=== PATIENT | female | born 1955 | race African-American/Black ===

== ENCOUNTER → 2023-09-25 | Outpatient (CLI) | payer OTHER ==
[~2023-09-25] VITALS: Ht 152.4 cm; Wt 60.8 kg
[~2023-09-25] MED LIST: ACYC400T16 PO; ADENOSINE 51 MG in GIVE UN-DILUTED 0 ML IV ONE; ADENOSINE 90 MG/30 ML INJ IV ONE; AMIT10TA11; BRIM0.2S17; BUTACAP7; CALCTAB25 PO; CARI350T27; CYPR4TAB50; DICL75TA4; ECON1CRE6; FOLI-119; HYDR-1421; HYDR200T36; LATA0.008; METH-562; METH2.5T; METO-158; OME20GT PO; POTA10CA29; PRED-188; PRED5PAK2; RANI-226; TRAZ-227
== END | disposition home or self-care (01) ==
LOC: Rad HDHVI 09:41
PROVIDERS: ATTEND Internal Medicine Cardiovascular Disease
DX: R07.9 Chest pain, unspecified (principal); I10 Essential (primary) hypertension; E78.00 Pure hypercholesterolemia, unspecified; R42 Dizziness and giddiness; R06.02 Shortness of breath; Z84.0 Family history of diseases of the skin and subcutaneous tissue
CPT/HCPCS: 78452; 93005; 96374; 96375; A9500; J0153

== ENCOUNTER 2024-06-25 10:23 | Inpatient (IN) | payer OTHER, MEDICAID ==
[~2024-06-25] VITALS: Ht 152.4 cm; Wt 58.8 kg
[2024-06-25] VITALS (9 sets, daily range): BP systolic 119; BP diastolic 72; PULSE 76–120; RESP 17–24; TEMP 99.1; O2SAT 97–100
[~2024-06-25 10:23] MED LIST changes: -ADENOSINE 51 MG in GIVE UN-DILUTED 0 ML IV ONE; -ADENOSINE 90 MG/30 ML INJ IV ONE; +BUTA1CAP31; -BUTACAP7; +CARI-578; -CARI350T27
[2024-06-25 10:51] LABS: Basophils # (auto) 0.1 10 ^3/uL (0-0.2); Basophils % (auto) 0.8 % (0.0-2.0); Eosinophils # (auto) 1.5 10 ^3/uL (0-0.8); Eosinophils % (auto) 8.9 % (0.0-7.0); Hematocrit 34.8 % (36.0-46.0); Hemoglobin 11.4 g/dL (12.2-16.2); Lymphocytes # (auto) 1.8 10 ^3/uL (0.4-5.4); Lymphocytes % (auto) 10.7 % (10.0-50.0); Mean Corpuscular Hemoglobin 28.6 pg (28.0-32.0); Mean Corpuscular Hgb Conc. 32.7 g/dL (32.0-36.0); Mean Corpuscular Volume 87.4 fL (80.0-100.0); Monocytes # (auto) 1.5 10 ^3/uL (0-1.3); Monocytes % (auto) 8.8 % (0.0-12.0); Neutrophils # (auto) 11.7 10 ^3/uL (1.6-8.6); Neutrophils % (auto) 70.8 % (37.0-80.0); Platelet Count (auto) 427 10^3/uL (140-450); Red Blood Cells 3.98 10^6/uL (4.0-5.20); Red Cell Distribution Width 16.7 % (11.8-14.3); White Blood Cell 16.5 10^3/uL (4.4-10.8)
--- NOTE | 2024-06-25 10:54 | ED.PDOC ---
SOB-HPI HPI Comments A 68 year old female presents to the ED with a chief complaint of shortness of breath onset 3 days ago. Patient states her SOB began 3 days ago but noticed it worsen today, she is on 2L of O2 at home COPD and has been using 3L for the past 2 days but has not noticed an improvement. She is also experiencing fever, headache, cough, sore throat and sharp chest pain radiating from the right to the left side. Patient also notes she has been hospitalized previously due to respiratory issues. She has a past medical history of Lupus, COPD, HTN, RA, Neuropathy, depression. No other symptoms or modifying factors present at this time. Chief Complaint: Chest Pain Time Seen by MD: 10:41 Primary Care Provider: DOROTHY Neri notes: Medications, Allergies Information Source: Patient Mode of Arrival: Ambulatory Severity: Moderate Timing: Days Duration: Since onset Context: At Rest, With Light Exertion PE Risk Factors: None History of: COPD Prehospital treatment: Oxygen (3L) Modifying Factors: Exertion, Rest Associated Signs and Symptoms: Cough, Sore Throat, Chest Pain Quality: Pressure Radiation: No Radiation If cough with SOB: Non-Productive Past Medical History PAST MEDICAL HISTORY: Anemia, Arthritis, Cancer, COPD, Depression, HTN Past Medical History (Other): RA, SLE, Neuropathy Surgical History (Other): gastric lymphadenectomy 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 History: No Pertinent BROWNELL OPERATOR History Family History Family History: No family hx of Cancer, No family hx of DM, No family hx of Heart mc, No family hx of HTN Social History Smoker: Less Than 1 Pack/Day Alcohol: Rarely Drugs: Denies Drug Use Lives In: Home Constitutional: reports: fatigue, fever; denies: chills, diaphoresis, malaise, sweats, weakness, others EENTM: reports: throat pain; denies: blurred vision, double vision, ear bleeding, ear discharge, ear drainage, ear pain, ear ringing, eye pain, eye redness, hearing loss, mouth pain, mouth swelling, nasal discharge, nose bleeding, nose congestion, nose pain, photophobia, tearing, throat swelling, voice changes, others Respiratory: reports: cough, shortness of breath; denies: hemoptysis, orthopnea, SOB at rest, SOB with excertion, stridor, wheezing, others Cardiovascular: reports: chest pain; denies: dizzy spells, diaphoresis, Dyspnea on exertion, edema, irregular heart beat, left arm pain, lightheadedness, palpitations, PND, syncope, others Gastrointestinal: denies: abdomen distended, abdominal pain, blood streaked bowels, constipated, diarrhea, dysphagia, difficulty swallowing, hematemesis, melena, nausea, poor appetite, poor fluid intake, rectal bleeding, rectal pain, vomiting, others Genitourinary: denies: abnormal vagina bleeding, burning, dyspareunia, dysuria, flank pain, frequency, hematuria, incontinence, pain, , vagina discharge, urgency, others Neurological: reports: headache; denies: dizziness, fainting, left sided numbness, left sided weakness, numbness, paresthesia, pre-existing deficit, right sided numbness, right sided weakness, seizure, speech problems, tingling, tremors, weakness, others Musculoskeletal: denies: back pain, gout, joint pain, joint swelling, muscle pain, muscle stiffness, neck pain, others Integumetry: denies: bruises, change in color, change in hair/nails, dryness, laceration, lesions, lumps, rash, wounds, others Allergic/Immunocompromised: denies: Difficulty Healing, Frequent Infections, Hives, Itching, others Hematologic/Lymphatic: denies: anemia, blood clots, easy bleeding, easy bruising, swollen glands, others Endocrine: denies: excessive hunger, excessive sweating, excessive thirst, excessive urination, flushing, intolerance to cold, intolerance to heat, unex plained weight gain, unexplained weight loss, others Psychiatric: denies: anxiety, bipolar disorder, depression, hopeless, panic disorder, schizophrenia, sleepless, suicidal, others All Other Systems: Reviewed and Negative Physical Exam General Appearance: Mild Distress HEENT: Other (Pulses symmetric, no facial asymmetry, mild pharyngeal erythema. No edema, exudate or uvular deviation) Neck: Full Range of Motion, Normal Inspection Respiratory: Accessory Muscle Use, Respiratory Distress (Mild), Rhonchi (Scattered), Other (Productive sounding cough) Cardiovascular: No Edema, No JVD, Regular Rate/Rhythm Breast Exam: Deferred Gastrointestinal: Non Tender, Soft Genitalia: Deferred Pelvic: Deferred Rectal: Deferred Extremities: Normal inspection, Normal range of motion, Non-tender, No pedal edema Neurologic: Alert (Oriented x4), Other (All extremities, no facial asymmetry, no gross focal deficit) Cerebellar Function: NOT DONE Reflexes: NOT DONE Skin: Dry, Normal Color, Warm Lymphatic: NOT DONE EKG EKG : Comments Sinus tach, rate 122, normal ID interval, QRS prolonged at 128, QTC prolonged at 604, right bundle branch block and left anterior fascicular block, upsloping ST elevation in inferior lateral leads, likely early repolarization anteroseptal T inversion, other nonspecific T change Was a procedure done? Was a procedure done?: No Differential Dx Differential Diagnosis: Asthma, Bronchitis, CHF, COPD, Dysrhythmia, Hyperventilation, Myocardial infarction, Pulmonary Embolism, Respiratory Distress, URI X-Ray, Labs, Meds, VS Vital Signs Date Time Temp Pulse Resp B/P (MAP) Pulse Ox O2 Delivery O2 Flow Rate FiO2 06/25/24 11:12 22 98 Room Air* 0 21 06/25/24 10:53 120 20 96 Room Air 06/25/24 10:53 120 18 114/44 (67) 96 06/25/24 10:41 122 06/25/24 10:34 99.1 125 19 108/73 (85) 98 Lab Test 06/25/24 11:05 06/25/24 11:00 06/25/24 10:40 Range/Units Lactic Acid Level 1.8 0.4-2.0 mmol/L Influenza Type A Antigen Negative Negative Influenza Type B Antigen Negative Negative SARS-CoV-2 Antigen (Rapid) Negative NEGATIVE White Blood Count 16.5 H 4.4-10.8 10^3/uL Red Blood Count 3.98 L 4.0-5.20 10^6/uL Hemoglobin 11.4 L 12.2-16.2 g/dL Hematocrit 34.8 L 36.0-46.0 % Mean Corpuscular Volume 87.4 80.0-100.0 fL Mean Corpuscular Hemoglobin 28.6 28.0-32.0 pg Mean Corpuscular Hemoglobin Concent 32.7 32.0-36.0 g/dL Red Cell Distribution Width 16.7 H 11.8-14.3 % Platelet Count 427 140-450 10^3/uL Mean Platelet Volume 6.9 6.9-10.8 fL Neutrophils (%) (Auto) 70.8 37.0-80.0 % Lymphocytes (%) (Auto) 10.7 10.0-50.0 % Monocytes (%) (Auto) 8.8 0.0-12.0 % Eosinophils (%) (Auto) 8.9 H 0.0-7.0 % Basophils (%) (Auto) 0.8 0.0-2.0 % Neutrophils # (Auto) 11.7 H 1.6-8.6 10 ^3/uL Lymphocytes # (Auto) 1.8 0.4-5.4 10 ^3/uL Monocytes # (Auto) 1.5 H 0-1.3 10 ^3/uL Eosinophils # (Auto) 1.5 H 0-0.8 10 ^3/uL Basophils # (Auto) 0.1 0-0.2 10 ^3/uL Nucleated Red Blood Cells 0.0 % Sodium Level Pending Potassium Level Pending Chloride Level Pending Carbon Dioxide Level Pending Anion Gap Pending Blood Urea Nitrogen Pending Creatinine Pending Glomerular Filtration Rate Calc Pending BUN/Creatinine Ratio Pending Serum Glucose Pending Calcium Level Pending Magnesium Level Pending Troponin I High Sensitivity 12 </=34 ng/L B-Type Natriuretic Peptide 76.63 0-100 pg/mL Current Medications Medications (Trade) Dose Ordered Sig/Elie Route Start Time Stop Time Status Last Admin Albuterol (Ventolin Medneb) 5 mg ONCE ONCE NEB 06/25/24 11:00 06/25/24 11:01 DC 06/25/24 11:11 Ipratropium [place] (Atrovent Medneb) 0.5 mg ONCE ONCE NEB 06/25/24 11:00 06/25/24 11:01 NM 06/25/24 11:12 Aspirin 325 mg ONCE ONCE PO 06/25/24 11:00 06/25/24 11:01 NM 06/25/24 11:12 PROCEDURE(s): CXRP - CHEST PORTABLE REASON: sob ORDER NUMBER(s): [id number], ACCESSION NUMBER(s): [id number] CHEST RADIOGRAPH Indication: sob Technique: Single frontal view of the chest was obtained COMPARISON: None FINDINGS: Lines and Tubes: None Lungs: Clear Pleura: No effusion. No pneumothorax. Cardiomediastinal contours: Unremarkable Bones: Unremarkable IMPRESSION: 1. No acute disease. X-Ray, Labs, Meds, VS Comment 68-year-old female with a history of hypertension, RA, SLE, COPD on home O2 complaining of shortness a breath, productive cough, flu-like symptoms and pleuritic chest pain. Vitals remarkable for heart rate 125 Exam remarkable for mild respiratory distress, accessory muscle use, productive sounding cough, scattered rhonchi Rhythm strip independently interpreted by me: Sinus tach, rate 122, no ectopy. Chest x-ray acute disease CBC remarkable for WBC 16.5, basic metabolic panel pending, BNP and troponin unremarkable, lactate normal influenza and COVID negative Patient treated with the following in the ED: Albuterol 5 mg/Atrovent 0.5 mg nebulized, Solu-Medrol 125 mg IV, morphine 4 mg IV, Zofran 4 mg IV, Levaquin 750 mg IV On re-evaluation, patient states her chest pain and headache had improved, heart rate is in the 120s, other vitals are stable. Plan is to admit the patient for respiratory support as needed. 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 Patient is high risk for respiratory decompensation. Stability Stability form required: No Heart Score Heart Score: Heart Score Response (Comments) Value History Slightly Suspicious 0 EKG Repolarization Disturb 1 Age >65 2 Risk Factors 1 or 2 risk factors 1 Troponin Normal limit 0 Total 4 I personally scribed for NIMISHA MERIDA MD ([email or web address]) on 06/25/24 at 10:54. Electronically submitted by Taryn Berry ([email or web address]). I personally scribed for NIMISHA MERIDA MD ([facility]) on 06/25/24 at 12:23. Electronically submitted by Taryn Berry ([email or web address]). I personally scribed for NIMISHA MERIDA MD ([facility]) on 06/25/24 at 12:27. Electronically submitted by Taryn Berry ([email or web address]). I personally scribed for NIMISHA MERIDA MD ([facility]) on 06/25/24 at 12:33. Electronically submitted by Taryn Berry ([email or web address]). I personally scribed for NIMISHA MERIDA MD ([facility]) on 06/25/24 at 12:34. Electronically submitted by Taryn Berry ([email or web address]). NIMISHA MERIDA MD Jun 25, 2024 10:54
[2024-06-25] MEDS: ALBUTEROL SULF 2.5 MG/0.5ML(0.5%) NEB SOLN NEB ONE (11:11)
[2024-06-25] MEDS: IPRATROPIUM BROM 0.5 MG/2.5ML INH SOL NEB ONE (11:12)
[2024-06-25] MEDS: ASPirin 325 MG TAB PO ONE (11:12)
[2024-06-25 12:08] LABS: COVID19 ANTIGEN SOFIA FIA NEGATIVE (NEGATIVE); Rapid Influenza A Negative (Negative); Rapid Influenza B Negative (Negative)
--- NOTE | 2024-06-25 12:12 | DVH ---
CHEST RADIOGRAPH Indication: sob Technique: Single frontal view of the chest was obtained COMPARISON: None FINDINGS: Lines and Tubes: None Lungs: Clear Pleura: No effusion. No pneumothorax. Cardiomediastinal contours: Unremarkable Bones: Unremarkable IMPRESSION: 1. No acute disease.
[2024-06-25] MEDS: levoFLOXacin 750MG 150 ML IV ONE ×2 (13:15→13:18)
[2024-06-25] MEDS: ONDANSETRON HCL 4 MG/2 ML VIAL IV ONE (13:18)
[2024-06-25] MEDS: methylPREDNISolone SOD SUCC 125 MG/2 ML VL IV ONE (13:18)
[2024-06-25] MEDS: MORPHINE SULFATE 4 MG/ML SYR/VIAL IV ONE (13:18)
--- NOTE | 2024-06-25 13:22 | DVHHP2 ---
History of Present Illness Reason for Visit: shortness of breath History of Present Illness 68-year-old female with a past medical history of anemia cancer COPD depression hypertension arthritis also with underlying history of rheumatoid arthritis as well as lupus comes to the ED with complaints of shortness of breath for the p ast 3 days patient due to her COPD is normally on home O2 states that for the last 2 days patient has had to increase the amount of oxygen at home she has experienced fevers caused headaches chills and intermittent chest pain on ED evaluation patient was shown to have signs of hypoxia recommended for admission via the ED for inpatient care and continued treatment Cardiovascular: CAD, HTN Pulmonary: COPD Review of Systems Constitutional: Yes: Weakness; No: Fever, Chills, Sweats, Malaise, Other Eyes: No: Pain, Vision change, Conjunctivae inflammation, Eyelid inflammation, Other, Redness ENT: No: Ear pain, Ear discharge, Nose pain, Nose discharge, Nose congestion, Mouth pain, Mouth swelling, Throat pain, Throat swelling, Other Respiratory: Cough, Shortness of breath; No: Dry, SOB with excertion, Wheezing, Hemoptysis, Pleuritic Pain, Sputum, Wheezing, Other Cardiovascular: Chest Pain, Palpitations; No: Orthopnea, Paroxysmal Noc. Dyspnea, Edema, Lt Headedness, Other Gastrointestinal: No: Nausea, Vomiting, Abdominal Pain, Diarrhea, Constipation, Melena, Hematochezia, Other Genitourinary: No Dysuria, No Frequency, No Incontinence, No Hematuria, No Retention, No Other Musculoskeletal: No: other, neck pain, shoulder pain, arm pain, back pain, hand pain, leg pain, foot pain Skin: No: Rash, Lesions, Jaundice, Bruising, Other Neurological: No: Weakness, Numbness, Incoordination, Change in speech, Confusion, Seizures, Other Allergies: Coded Allergies: Ketorolac (Verified Allergy, Unknown, 06/16/14) Penicillins (Verified Allergy, Unknown, 06/16/14) Tromethamine (Verified Allergy, Unknown, 06/16/14) Exam Vital Signs Vital Signs Date Time Temp Pulse Resp B/P (MAP) Pulse Ox O2 Delivery O2 Flow Rate FiO2 06/25/24 11:12 22 98 Room Air* 0 21 06/25/24 10:53 120 06/25/24 10:53 114/44 (67) 06/25/24 10:34 99.1 General Appearance: Alert, Oriented X3, Cooperative HEENT: Atraumatic, PERRLA, EOMI Respiratory: Clear to auscultation (Rhonchi), Normal air movement Cardiovascular: Regular rate, Normal S1, Normal S2 Abdominal: Normal bowel sounds, Soft, No tenderness Extremities: No clubbing, No cyanosis, No edema Skin: No rashes, No breakdown Neuro: Normal gait, Normal speech Psych/Mental Status: Mood NL Labs/Xrays Labs Test 06/25/24 11:05 06/25/24 11:00 06/25/24 10:40 Range/Units Lactic Acid Level 1.8 0.4-2.0 mmol/L Influenza Type A Antigen Negative Negative Influenza Type B Antigen Negative Negative SARS-CoV-2 Antigen (Rapid) Negative NEGATIVE White Blood Count 16.5 H 4.4-10.8 10^3/uL Red Blood Count 3.98 L 4.0-5.20 10^6/uL Hemoglobin 11.4 L 12.2-16.2 g/dL Hematocrit 34.8 L 36.0-46.0 % Mean Corpuscular Volume 87.4 80.0-100.0 fL Mean Corpuscular Hemoglobin 28.6 28.0-32.0 pg Mean Corpuscular Hemoglobin Concent 32.7 32.0-36.0 g/dL Red Cell Distribution Width 16.7 H 11.8-14.3 % Platelet Count 427 140-450 10^3/uL Mean Platelet Volume 6.9 6.9-10.8 fL Neutrophils (%) (Auto) 70.8 37.0-80.0 % Lymphocytes (%) (Auto) 10.7 10.0-50.0 % Monocytes (%) (Auto) 8.8 0.0-12.0 % Eosinophils (%) (Auto) 8.9 H 0.0-7.0 % Basophils (%) (Auto) 0.8 0.0-2.0 % Neutrophils # (Auto) 11.7 H 1.6-8.6 10 ^3/uL Lymphocytes # (Auto) 1.8 0.4-5.4 10 ^3/uL Monocytes # (Auto) 1.5 H 0-1.3 10 ^3/uL Eosinophils # (Auto) 1.5 H 0-0.8 10 ^3/uL Basophils # (Auto) 0.1 0-0.2 10 ^3/uL Nucleated Red Blood Cells 0.0 % Troponin I High Sensitivity 12 </=34 ng/L B-Type Natriuretic Peptide 76.63 0-100 pg/mL Assessment/Plan Assessment/Plan Admit to [facility] Acute on chronic hypoxic respiratory failure in the setting of COPD Suspected COPD with acute bronchitis IV hydration IV antibiotics ceftriaxone p.o. antibiotics azithromycin Solu-Medrol 40 mg b.i.d. P.r.n. medications for the management of pain UA pending Evaluate once collected to rule out underlying urinary tract infection A chest x-ray no acute signs of bilateral infiltrates P.r.n. breathing treatment Plan discussed with: Patient My Orders Orders - TANYA CHAU MD Procedure Category Date Status Time Amitriptyline Hcl PHA 06/26/24 Transmitted Tablet (Elavil Tablet) 10:00 Brimonidine 0.2% Opth PHA 06/25/24 Transmitted Soln (Alphagan 0.2 22:00 Calcium W/Vit D PHA 06/25/24 Transmitted Tablet (Oscal W/Vit D 22:00 Carisoprodol Tablet PHA 06/25/24 Transmitted (Soma Tablet) 18:00 Cyproheptadine Hcl PHA 06/26/24 Transmitted (Periactin) 10:00 Hydroxychloroquine PHA 06/26/24 Transmitted Tablet (Plaquenil Tab 10:00 Latanoprost (Xalatan) PHA 06/25/24 Transmitted 22:00 Methocarbamol PHA 06/26/24 Transmitted (Robaxin) 10:00 Methotrexate PHA 06/26/24 Transmitted (Methotrexate) 10:00 Metoprolol Tartrate PHA 06/25/24 Transmitted Tablet (Lopressor Ta 22:00 Trazodone Hcl PHA 06/25/24 Transmitted (Desyrel) 18:00 Levofloxacin Levaquin PHA 06/25/24 Transmitted 13:15 Albuterol Medneb PHA 06/25/24 Transmitted (Ventolin Medneb) 13:15 Ipratropium Medneb PHA 06/25/24 Transmitted (Atrovent Medneb) 13:15 Med Neb Initial RT 06/25/24 Transmitted Treatment 13:03 Methylprednisolone PHA 06/25/24 Transmitted Sod Succ (Solu Medrol 22:00 Problem List: (1) COPD with acute exacerbation (2) COPD with acute bronchitis (3) Acute and chronic respiratory failure (4) Fever (5) SYST LUPUS ERYTHEMATOSIS (6) Dehydration Date of Service: Jun 25, 2024 Billing Provider: TANYA CHAU MD Common Visit Codes: [id number] INP/OBS CARE (HIGH) TANYA CHAU MD Jun 25, 2024 13:22
[2024-06-25 13:46] LABS: Sodium 143 mmol/L (136-145)
[2024-06-25 13:47] LABS: Anion Gap 13 (5-15); Calcium 9.7 mg/dL (8.7-10.4)
[2024-06-25 13:52] LABS: BUN/Creatinine Ratio 10.2 (10.0-20.0); Blood Urea Nitrogen 13 mg/dL (9-23); Glucose 95 mg/dL (74-106)
[2024-06-25 13:53] LABS: Magnesium 2.2 mg/dL (1.6-2.6)
[2024-06-25 13:55] LABS: Carbon Dioxide 15 mmol/L (20-31); Chloride 115 mmol/L (98-107); Potassium 3.4 mmol/L (3.5-5.1)
[2024-06-25] MEDS: IPRATROPIUM BROM 0.5 MG/2.5ML INH SOL NEB PRN (14:01)
[2024-06-25] MEDS: ALBUTEROL SULF 2.5 MG/0.5ML(0.5%) NEB SOLN NEB PRN (14:02)
[2024-06-25] MEDS ORDERED: ONDANSETRON HCL 4 MG/2 ML VIAL IV PRN (16:45)
[2024-06-25] MEDS ORDERED: LORazepam 0.5 MG TAB PO PRN (16:45)
[2024-06-25] MEDS ORDERED: MAALOX PLUS or MAALOX 30 ML PO PRN (16:45)
[2024-06-25] MEDS ORDERED: ACETAMINOPHEN 325 MG TAB PO PRN (16:45)
[2024-06-25] MEDS ORDERED: DOCUSATE SOD 100 MG CAP PO PRN (16:45)
[2024-06-25] MEDS ORDERED: NITROGLYCERIN 0.4 MG SL TAB SL PRN (16:45)
[2024-06-25] MEDS ORDERED: TEMAZEPAM 15 MG CAP PO PRN (16:45)
[2024-06-25] MEDS ORDERED: MORPHINE SULFATE INJ 2 MG/ml SYRG IV PRN (16:45)
[2024-06-25] MEDS: guaiFENesin-DM 100/10mg/5ml SYR PO ONE (17:02)
[2024-06-25] MEDS: HYDROcodone-ACET 10/325MG TAB PO ONE (17:02)
[2024-06-25] MEDS ORDERED: CARISOPRODOL 350 MG TAB PO SCH (18:00)
[2024-06-25] MEDS: MORPHINE SULFATE INJ 2 MG/ml SYRG IV PRN (20:59)
[2024-06-25] MEDS: ALBUTEROL SULF 2.5 MG/0.5ML(0.5%) NEB SOLN NEB SCH (21:50)
[2024-06-25] MEDS: IPRATROPIUM BROM 0.5 MG/2.5ML INH SOL NEB SCH (21:50)
[2024-06-25] MEDS: LATANOPROST 0.005 % OPTH(EYE) SOL 2.5ML EACHEYE SCH (22:00)
[2024-06-25] MEDS: METOPROLOL TARTRATE 50 MG TAB PO SCH (22:00)
[2024-06-25] MEDS: BRIMONIDINE 0.2% OPTH Soln 5ml EACHEYE SCH (22:00)
[2024-06-25] MEDS: methylPREDNISolone SOD SUCC 40 MG/ML VL IV SCH (23:18)
[2024-06-25] MEDS: CALCIUM W/VIT D (600MG/400IU) TAB PO SCH (23:18)
[2024-06-25] MEDS: traZODone HCL 50 MG TAB PO SCH (23:19)
[2024-06-26] VITALS (16 sets, daily range): BP systolic 97–113; BP diastolic 55–67; PULSE 73–96; RESP 16–22; TEMP 98–99.2; O2SAT 97–100
[2024-06-26] MEDS: THROAT LOZENGES(CEPASTAT) MT PRN (00:48)
[2024-06-26] MEDS: guaiFENesin-DM 100/10mg/5ml SYR PO PRN (03:02)
[2024-06-26] MEDS: HYDROcodone-ACET 5/325MG TAB PO PRN (06:27)
[2024-06-26 07:40] LABS: Urine Bacteria FEW /hpf (None Seen); Urine Blood Negative /uL (Negative); Urine Clarity Clear (Clear); Urine Color Light-Yellow (Yellow); Urine Protein, UAD TRACE (Negative); Urine Specific Gravity 1.013 (1.001-1.035); Urine Urobilinogen Normal (Negative); Urine WBC 3 /hpf (0 - 5); Urine pH 6.5 (5.0-9.0)
[2024-06-26 07:48] LABS: Basophils # (auto) 0.1 10 ^3/uL (0-0.2); Basophils % (auto) 0.6 % (0.0-2.0); Eosinophils # (auto) 0 10 ^3/uL (0-0.8); Eosinophils % (auto) 0.3 % (0.0-7.0); Hemoglobin 10.4 g/dL (12.2-16.2); Lymphocytes # (auto) 1.9 10 ^3/uL (0.4-5.4); Lymphocytes % (auto) 11.1 % (10.0-50.0); Mean Corpuscular Hemoglobin 28.5 pg (28.0-32.0); Mean Corpuscular Hgb Conc. 32.5 g/dL (32.0-36.0); Mean Corpuscular Volume 87.6 fL (80.0-100.0); Monocytes # (auto) 1.3 10 ^3/uL (0-1.3); Monocytes % (auto) 7.5 % (0.0-12.0); Neutrophils # (auto) 13.9 10 ^3/uL (1.6-8.6); Neutrophils % (auto) 80.5 % (37.0-80.0); Platelet Count (auto) 398 10^3/uL (140-450); Red Blood Cells 3.65 10^6/uL (4.0-5.20); Red Cell Distribution Width 16.5 % (11.8-14.3); White Blood Cell 17.3 10^3/uL (4.4-10.8)
[2024-06-26 07:59] LABS: Potassium 4.9 mmol/L (3.5-5.1); Sodium 139 mmol/L (136-145)
[2024-06-26 08:00] LABS: Anion Gap 10 (5-15)
[2024-06-26 08:01] LABS: Calcium 9.7 mg/dL (8.7-10.4)
[2024-06-26 08:05] LABS: Blood Urea Nitrogen 15 mg/dL (9-23); Glucose 94 mg/dL (74-106)
[2024-06-26 08:11] LABS: Carbon Dioxide 17 mmol/L (20-31); Chloride 112 mmol/L (98-107)
[2024-06-26] MEDS: AMITRIPTYLINE HCL 10 MG TAB PO SCH (09:09)
[2024-06-26] MEDS: CYPROHEPTADINE HCL 4 MG TAB PO SCH (09:36)
[2024-06-26] MEDS ORDERED: METHOCARBAMOL 500 MG TAB PO SCH (10:00)
[2024-06-26] MEDS ORDERED: hydrOXYchloroQUINE SULFATE 200 MG TAB PO SCH (10:00)
[2024-06-26] MEDS ORDERED: METHOTREXATE 2.5 MG TAB PO SCH (10:00)
[2024-06-26] MEDS: Nepro With Carbsteady ButterPecan 8oz Carton PO SCH (12:00)
[2024-06-26] MEDS: SODIUM CHLORIDE 0.9% 500 ML IV ONE (12:15)
[2024-06-26] MEDS: DOXYCYCLINE 100MG/250ML 250 ML IV SCH (12:23)
[2024-06-26] MEDS: HYDROcodone-ACET 10/325MG TAB PO PRN (12:28)
--- NOTE | 2024-06-26 13:54 | DVHPNRES ---
Progress Note Date Seen: Jun 26, 2024 Resident Creating Document: ELIZABETH THOMSON RESIDENT Medical Necessity Reason Pt with a Central, PICC or Fol: No Subjective Review of Systems Mrs. Ramirez is a 68-year-old female who came to the ED with chief complain of shortness of breath. PMH: COPD, depression, hypertension, rheumatoid arthritis, lupus. PSH: gastric lymphadenectomy SH: Quit smoking 30 years ago, before that she smoked for around 25 years at least half a pack per day, denied using any drugs or alcohol Home medications: Amitriptyline 10 mg p.o. q.d., calcium carbonate 600 mg p.o. b.i.d., carisoprodol 350 mg p.o. q.d., cyproheptadine 4 mg p.o., diclofenac 75 mg p.o., folic acid 1 mg q.d., [place] 10 mg for 325 mg p.o. q.6 p.r.n., hydroxychloroquine 200 mg p.o. q.d., methotrexate 2.5 mg, metoprolol tartrate 50 mg p.o. b.i.d., omeprazole 20 mg p.o., trazodone 50 mg p.o. q.d., She states having shortness of breath for the past 3 days, she is normally on home O2 at 2 L, states that for the last 2 days patient has had to increase the amount of oxygen at home. She has experienced fevers, headaches, chills and intermittent chest pain, on ED evaluation patient was shown to have signs of hypoxia recommended for admission via the ED for inpatient care and continued treatment. On my initial assessment, patient was in no acute distress, she continued to complain of shortness of breath, cough, mild chest pain which is worse when breathing and anterior chest is tender. Denied any abdominal pain, nausea, vomiting. She also states having seven episodes of watery diarrhea last night and stated she has been has been area for the last three days. Objective vital signs Vital Sign Date Time Temp Pulse Resp B/P (MAP) Pulse Ox O2 Delivery O2 Flow Rate FiO2 06/26/24 10:09 83 20 100 06/26/24 10:03 Nasal Cannula 2.0 06/26/24 10:03 28 06/26/24 09:03 95/46 06/26/24 09:00 98.6 98.6 Total Intake and Output 06/25/24 06/25/24 06/26/24 15:00 23:00 07:00 Intake Total 480 ml Balance 480 ml medications Current Medications Medications Dose Ordered Sig/Elie Route Start Time Stop Time Status Last Admin Dose Admin Amitriptyline HCl 10 mg DAILY PO 06/26/24 10:00 06/26/24 09:09 10 MG Brimonidine Tartrate 1 drop BID EACHEYE 06/25/24 22:00 06/26/24 09:09 1 DROP Calcium/Vitamin D 1 tab BID PO 06/25/24 22:00 06/26/24 09:09 1 TAB Cyproheptadine HCl 4 mg DAILY PO 06/26/24 10:00 06/26/24 09:36 4 MG Latanoprost 1 drop HS EACHEYE 06/25/24 22:00 06/25/24 22:00 1 DROP Metoprolol Tartrate 50 mg BID PO 06/25/24 22:00 Trazodone HCl 50 mg HS PO 06/25/24 22:00 06/25/24 23:19 50 MG Methylprednisolone Sodium Succinate 40 mg BID IV 06/25/24 22:00 06/26/24 08:56 40 MG Lorazepam 0.5 mg Q6HP PRN PO 06/25/24 16:45 Al Hydrox/Mg Hydrox/Simethicone 30 ml Q6HP PRN PO 06/25/24 16:45 Docusate Sodium 100 mg BIDPRN PRN PO 06/25/24 16:45 Acetaminophen 650 mg Q6HP PRN PO 06/25/24 16:45 Ondansetron HCl 4 mg Q4HP PRN IV 06/25/24 16:45 Morphine Sulfate 2 mg Q4HPRN PRN IV 06/25/24 16:45 06/26/24 02:10 2 MG Nitroglycerin 0.4 mg Q5MINP PRN SL 06/25/24 16:45 Morphine Sulfate 2 mg Q30M PRN IV 06/25/24 16:45 Albuterol 2.5 mg Q4HR NEB 06/25/24 22:00 06/26/24 10:03 2.5 MG Ipratropium Adrian 0.5 mg Q4HR NEB 06/25/24 22:00 06/26/24 10:03 0.5 MG Throat Lozenges 1 josé miguel Q6HP PRN MT 06/25/24 21:30 06/26/24 00:48 1 JOSÉ MIGUEL Guaifenesin/ Dextromethorphan 10 ml Q6HPRN PRN PO 06/26/24 03:00 06/26/24 09:10 10 ML Doxycycline Hyclate 250 ml @ 125 mls/hr Q12H IV 06/26/24 09:15 06/26/24 12:23 125 MLS/HR Enteral Nutritional Formula 240 ml TIDWM PO 06/26/24 12:00 Acetaminophen/ Hydrocodone Bitart 1 tab Q6HP PRN PO 06/26/24 11:15 06/26/24 12:28 1 TAB Examination General: Awake, alert, comfortable appearing, in no acute distress. HEENT: Head is normocephalic and atraumatic. Pupils are equal, round, and reactive to light. Extraocular muscles are intact. No nasal discharge. No facial trauma. Intraoral exam shows moist mucous membranes with no tonsillar enlargement or exudate. Neck: Supple with no cervical lymphadenopathy No meningismus. No goiter. Heart: Regular rate without murmur, rub, or gallop. Lungs: Bilateral wheezing and scattered coarse crackles Abdomen: No external sign of injury. Bowel sounds are present. Abdomen is soft, nontender. No rebound, no guarding, no rigidity. There are no palpable masses. There is no flank pain on exam. Extremities: Strong peripheral pulses. There is no clubbing, no cyanosis, and no edema. Skin: No rash. Neurologic: Cranial nerves II-XII intact without motor, sensory, or cerebellar deficit, no asterixis. laboratory and microbiology Laboratory Tests 06/26/24 07:16 Test 06/26/24 07:16 Range/Units Serum Glucose 94 74-106 mg/dL Labs and/or images reviewed: Labs reviewed by me, Image(s) reviewed by me Problem List/Assessment/Plan Problem List/Assessment/Plan #Acute on chronic hypoxic respiratory failure #Home oxygen at 2 L/min #COPD exacerbation #Possible pneumonia Gram-positive versus Gram-negative, versus atypical Continue DuoNebs q.4 Continue nasal cannula at 2 L, recommend maintaining saturation between 88-92% Continue Solu-Medrol 40 mg IV b.i.d. Pending sputum sample Start doxycycline 100 mg IV b.i.d. COVID and flu negative #MARY likely due to VMN Order NS 500 mL once Avoid nephrotoxic agent #Diarrhea Pending stool studies #SLE #RA #Depression Continue home medications #Anemia microcytic normochromic Monitor for downtrend #Essential hypertension Monitor Goals of care were discussed for 20 minutes. Full code Case was discussed with Dr. Steinberg Plan discussed with: Patient, Other (RN) My Orders My Orders Orders - ELIZABETH THOMSON RESIDENT Procedure Category Date Status Time Doxycycline PHA 06/26/24 In Process 100mg/250ml 09:15 Nutritional PHA 06/26/24 In Process Supplements (Nepro 12:00 Hydrocodone-Acet PHA 06/26/24 In Process 10/325mg Tab ([place] 11:15 Stool Wbc LAB 06/26/24 Logged 11:10 Stool Bacterial PUNEET 06/26/24 Logged Culture 11:10 Stool Occult Blood LAB 06/26/24 Logged 11:10 Clostridium Difficile PUNEET 06/26/24 Logged Toxin 11:10 Sodium Chloride 0.9% PHA 06/26/24 In Process 11:15 Complete Blood Count LAB 06/27/24 Verified 04:00 Comprehensive LAB 06/27/24 Verified Metabolic Panel 04:00 Magnesium LAB 06/27/24 Verified 04:00 Addendum Addendum Addendum I was physically present for the wilkes portions of the service provided to patient by THE RESIDENT. I have reviewed the documentation, discussed the case with resident and agree with the resident's documentation except as noted. Also the patient's clinical case was discussed with the patient's nurse. This medical document was created using an electronic medical record system with computerized dictation system. Although this document has been carefully reviewed, there might still be some phonetic and typographical errors. These areas are purely typographical due to imperfections of the software programs, and do not reflect any compromise in the patient's medical care. Late signature. Date of Service: Jun 26, 2024 Billing Provider: BO STEINBERG MD Common Visit Codes: [id number] INP/OBS CARE(HIGH) Secondary Visit Codes: [id number] CARE PLAN 30 MINUTES (20 minutes) ELIZABETH THOMSON RESIDENT Jun 26, 2024 13:54 BO STEINBERG MD Jun 27, 2024 11:48
[2024-06-27] VITALS (18 sets, daily range): BP systolic 97–117; BP diastolic 51–67; PULSE 67–90; RESP 16–20; TEMP 97.5–98.6; O2SAT 94–100
[2024-06-27 05:59] LABS: Basophils # (auto) 0.1 10 ^3/uL (0-0.2); Basophils % (auto) 0.5 % (0.0-2.0); Eosinophils # (auto) 0.1 10 ^3/uL (0-0.8); Eosinophils % (auto) 0.4 % (0.0-7.0); Hematocrit 29.9 % (36.0-46.0); Hemoglobin 9.7 g/dL (12.2-16.2); Lymphocytes # (auto) 2.2 10 ^3/uL (0.4-5.4); Lymphocytes % (auto) 14.4 % (10.0-50.0); Mean Corpuscular Hgb Conc. 32.4 g/dL (32.0-36.0); Mean Corpuscular Volume 86.6 fL (80.0-100.0); Monocytes # (auto) 1.6 10 ^3/uL (0-1.3); Monocytes % (auto) 10.4 % (0.0-12.0); Neutrophils # (auto) 11.6 10 ^3/uL (1.6-8.6); Neutrophils % (auto) 74.3 % (37.0-80.0); Platelet Count (auto) 423 10^3/uL (140-450); Red Blood Cells 3.45 10^6/uL (4.0-5.20); White Blood Cell 15.6 10^3/uL (4.4-10.8)
[2024-06-27 06:10] LABS: Alanine Aminotransferase 14 U/L (7-40); Albumin 4.2 g/dL (3.2-4.8); Anion Gap 12 (5-15); Aspartate Aminotransferase 19 U/L (13-40); Blood Urea Nitrogen 22 mg/dL (9-23); Calcium 9.8 mg/dL (8.7-10.4); Potassium 4.5 mmol/L (3.5-5.1); Sodium 142 mmol/L (136-145)
[2024-06-27 06:11] LABS: Total Protein 6.3 g/dL (5.7-8.2)
[2024-06-27 06:32] LABS: Alkaline Phosphatase 132 U/L (46-116); Bilirubin, Total < 0.2 mg/dL (0.2-1.0); Carbon Dioxide 18 mmol/L (20-31); Chloride 112 mmol/L (98-107); Glucose 107 mg/dL (74-106)
--- NOTE | 2024-06-27 06:45 | ECG ---
[facility] Test Date: 2024-06-25 Test Time: 10:38:41 Pat Name: JAIRO RAY Department: ER Room: 0237 A Gender: F [employer]: [place] : 1955 Requested By: RAFAEL RAMIRES Order Number: [id number] Reading MD: Victor M Brannon Measurements Intervals [place] Rate: 121 P: 74 [place]: 133 QRS: 63 QRSD: 121 T: 66 QT: 339 QTc: 481 Interpretive Statements Sinus tachycardia Ventricular premature complex Aberrant conduction of SV complex(es) Right bundle branch block Inferior infarct, acute Lateral leads are also involved Electronically Signed On 07-01-2024 12:21:15 PST by Victor M Brannon Please click the below link to view image of tracing.
--- NOTE | 2024-06-27 12:18 | DVH ---
RENAL ULTRASOUND CLINICAL HISTORY: [place] TECHNIQUE: Multiple ultrasound images of the kidneys and bladder were obtained. COMPARISON: None FINDINGS: The right kidney measures 9.3 cm in length. The left kidney measures 8.0 cm. There is a 1.9 cm right lower pole renal cyst. There is no sonographic evidence of nephrolithiasis or hydronephrosis. Bladder appears within normal limits with prevoid volume of 253 cc. IMPRESSION: 1. Unremarkable renal ultrasound. HS:Y
[2024-06-27] MEDS: FUROSEMIDE 40 MG/4 ML VIAL IV ONE (17:36)
[2024-06-27] MEDS: guaiFENesin 200 MG/10 ML UD PO ONE (17:37)
--- NOTE | 2024-06-27 19:06 | DVHPNRES ---
Progress Note Date Seen: Jun 27, 2024 Resident Creating Document: JHAJJЕКАТЕРИНА RESIDENT Medical Necessity Reason Pt with a Central, PICC or Fol: No Subjective Review of Systems Mrs. Ramirez is a 68-year-old female who came to the ED with chief complain of shortness of breath. PMH: COPD, depression, hypertension, rheumatoid arthritis, lupus. PSH: gastric lymphadenectomy SH: Quit smoking 30 years ago, before that she smoked for around 25 years at least half a pack per day, denied using any drugs or alcohol Home medications: Amitriptyline 10 mg p.o. q.d., calcium carbonate 600 mg p.o. b.i.d., carisoprodol 350 mg p.o. q.d., cyproheptadine 4 mg p.o., diclofenac 75 mg p.o., folic acid 1 mg q.d., [place] 10 mg for 325 mg p.o. q.6 p.r.n., hydroxychloroquine 200 mg p.o. q.d., methotrexate 2.5 mg, metoprolol tartrate 50 mg p.o. b.i.d., omeprazole 20 mg p.o., trazodone 50 mg p.o. q.d., She states having shortness of breath for the past 3 days, she is normally on home O2 at 2 L, states that for the last 2 days patient has had to increase the amount of oxygen at home. She has experienced fevers, headaches, chills and intermittent chest pain, on ED evaluation patient was shown to have signs of hypoxia recommended for admission via the ED for inpatient care and continued treatment. review of systems patient was in no acute distress, she continued to complain of shortness of breath, cough, mild chest pain which is worse when breathing and anterior chest is tender. Denied any abdominal pain, nausea, vomiting. Objective vital signs Vital Sign Date Time Temp Pulse Resp B/P (MAP) Pulse Ox O2 Delivery O2 Flow Rate FiO2 06/27/24 17:36 104/59 06/27/24 16:52 98.0 86 17 100 98.0 06/27/24 13:58 Nasal Cannula* 3 32 Total Intake and Output 06/26/24 06/26/24 06/27/24 15:00 23:00 07:00 Intake Total 250 ml 760 ml 450 ml Balance 250 ml 760 ml 450 ml medications Current Medications Medications Dose Ordered Sig/Elie Route Start Time Stop Time Status Last Admin Dose Admin Amitriptyline HCl 10 mg DAILY PO 06/26/24 10:00 06/27/24 08:43 10 MG Brimonidine Tartrate 1 drop BID EACHEYE 06/25/24 22:00 06/27/24 08:09 1 DROP Calcium/Vitamin D 1 tab BID PO 06/25/24 22:00 06/27/24 08:43 1 TAB Cyproheptadine HCl 4 mg DAILY PO 06/26/24 10:00 06/27/24 08:44 4 MG Latanoprost 1 drop HS EACHEYE 06/25/24 22:00 06/25/24 22:00 1 DROP Metoprolol Tartrate 50 mg BID PO 06/25/24 22:00 06/27/24 08:43 50 MG Trazodone HCl 50 mg HS PO 06/25/24 22:00 06/26/24 23:02 50 MG Methylprednisolone Sodium Succinate 40 mg BID IV 06/25/24 22:00 06/27/24 08:14 40 MG Lorazepam 0.5 mg Q6HP PRN PO 06/25/24 16:45 Al Hydrox/Mg Hydrox/Simethicone 30 ml Q6HP PRN PO 06/25/24 16:45 Docusate Sodium 100 mg BIDPRN PRN PO 06/25/24 16:45 Acetaminophen 650 mg Q6HP PRN PO 06/25/24 16:45 Ondansetron HCl 4 mg Q4HP PRN IV 06/25/24 16:45 Morphine Sulfate 2 mg Q4HPRN PRN IV 06/25/24 16:45 06/26/24 02:10 2 MG Nitroglycerin 0.4 mg Q5MINP PRN SL 06/25/24 16:45 Morphine Sulfate 2 mg Q30M PRN IV 06/25/24 16:45 Albuterol 2.5 mg Q4HR NEB 06/25/24 22:00 06/27/24 13:58 2.5 MG Ipratropium [place] 0.5 mg Q4HR NEB 06/25/24 22:00 06/27/24 13:58 0.5 MG Throat Lozenges 1 josé miguel Q6HP PRN MT 06/25/24 21:30 06/27/24 15:05 1 JOSÉ MIGUEL Guaifenesin/ Dextromethorphan 10 ml Q6HPRN PRN PO 06/26/24 03:00 06/27/24 11:28 10 ML Doxycycline Hyclate 250 ml @ 125 mls/hr Q12H IV 06/26/24 09:15 06/27/24 08:12 125 MLS/HR Enteral Nutritional Formula 240 ml TIDWM PO 06/26/24 12:00 06/27/24 12:00 240 ML Acetaminophen/ Hydrocodone Bitart 1 tab Q6HP PRN PO 06/26/24 11:15 06/27/24 15:06 1 TAB Examination General: Awake, alert, comfortable appearing, in no acute distress. HEENT: Head is normocephalic and atraumatic. Pupils are equal, round, and reactive to light. Extraocular muscles are intact. No nasal discharge. No facial trauma. Intraoral exam shows moist mucous membranes with no tonsillar enlargement or exudate. Neck: Supple with no cervical lymphadenopathy No meningismus. No goiter. Heart: Regular rate without murmur, rub, or gallop. Lungs: Bilateral decreased breath sounds, wheezing has improved, minimal basilar crackles Abdomen: No external sign of injury. Bowel sounds are present. Abdomen is soft, nontender. No rebound, no guarding, no rigidity. There are no palpable masses. There is no flank pain on exam. Extremities: Strong peripheral pulses. There is no clubbing, no cyanosis, and no edema. Skin: No rash. Neurologic: Cranial nerves II-XII intact without motor, sensory, or cerebellar deficit, no asterixis. laboratory and microbiology Laboratory Tests 06/27/24 05:07 Test 06/27/24 05:07 Range/Units Serum Glucose 107 H 74-106 mg/dL Problem List/Assessment/Plan Problem List/Assessment/Plan #Acute on chronic hypoxic respiratory failure #Home oxygen at 2 L/min #COPD exacerbation #Possible pneumonia Gram-positive versus Gram-negative, versus atypical Continue DuoNebs q.4 Continue nasal cannula at 2 L, recommend maintaining saturation between 88-92% Continue Solu-Medrol 40 mg IV b.i.d. Pending sputum sample Start doxycycline 100 mg IV b.i.d. COVID and flu negative #MARY likely due to VMN Order NS 500 mL once Avoid nephrotoxic agent #Diarrhea Pending stool studies #SLE #RA #Depression Continue home medications #Anemia microcytic normochromic Monitor for downtrend #Essential hypertension Monitor 06/27- patient reports feeling better her shortness of breath has improved. Patient has been titrated down to 2 L oxygen. Wheezing has decreased and there were minimal bibasilar crackles. Patient given 40 mg furosemide IV. ABG to be done. MARY is improving. Goals of care were discussed for 20 minutes. Full code Case was discussed with Dr. Xiao Plan discussed with: Patient Date of Service: Jun 27, 2024 Billing Provider: GOVIND SEGOVIA MD Common Visit Codes: 82584-[id number] INP/OBS CARE(HIGH) ЕКАТЕРИНА CODY RESIDENT Jun 27, 2024 19:06 GOVIND SEGOVIA MD Jun 29, 2024 10:24
[2024-06-28] VITALS (19 sets, daily range): BP systolic 92–114; BP diastolic 36–87; PULSE 51–102; RESP 16–20; TEMP 97.4–98.9; O2SAT 92–100
[2024-06-28 06:54] LABS: Calcium 10.4 mg/dL (8.7-10.4); Potassium 4.6 mmol/L (3.5-5.1); Sodium 140 mmol/L (136-145)
[2024-06-28 06:55] LABS: Anion Gap 10 (5-15)
[2024-06-28 06:59] LABS: Basophils # (auto) 0.1 10 ^3/uL (0-0.2); Basophils % (auto) 0.4 % (0.0-2.0); Eosinophils # (auto) 0.1 10 ^3/uL (0-0.8); Eosinophils % (auto) 0.5 % (0.0-7.0); Hematocrit 32.2 % (36.0-46.0); Hemoglobin 10.3 g/dL (12.2-16.2); Lymphocytes # (auto) 2.1 10 ^3/uL (0.4-5.4); Lymphocytes % (auto) 13.2 % (10.0-50.0); Mean Corpuscular Hemoglobin 27.9 pg (28.0-32.0); Mean Corpuscular Hgb Conc. 32.2 g/dL (32.0-36.0); Mean Corpuscular Volume 86.7 fL (80.0-100.0); Monocytes # (auto) 0.7 10 ^3/uL (0-1.3); Monocytes % (auto) 4.1 % (0.0-12.0); Neutrophils # (auto) 12.9 10 ^3/uL (1.6-8.6); Neutrophils % (auto) 81.8 % (37.0-80.0); Platelet Count (auto) 473 10^3/uL (140-450); Red Blood Cells 3.71 10^6/uL (4.0-5.20); Red Cell Distribution Width 16.4 % (11.8-14.3); White Blood Cell 15.8 10^3/uL (4.4-10.8)
[2024-06-28 07:00] LABS: BUN/Creatinine Ratio 21.8 (10.0-20.0)
[2024-06-28 07:04] LABS: Blood Urea Nitrogen 26 mg/dL (9-23); Carbon Dioxide 18 mmol/L (20-31); Chloride 112 mmol/L (98-107); Glucose 109 mg/dL (74-106)
[2024-06-28 08:07] LABS: Complement C3 168 mg/dL (82-167)
--- NOTE | 2024-06-28 09:40 | DVH ---
CHEST RADIOGRAPH Indication: SOB Technique: Single frontal view of the chest was obtained Comparison: XY CHEST PORTABLE on DOS: 06/25/24, XY CHEST PORTABLE on DOS: 06/25/24 FINDINGS: Lines and Tubes: None Lungs: Clear Pleura: No effusion. No pneumothorax. Cardiomediastinal contours: Unremarkable Bones: Unremarkable IMPRESSION: 1. No acute disease.
[2024-06-28] MEDS: FUROSEMIDE 40 MG/4 ML VIAL IV ONE (11:11)
[2024-06-28] MEDS ORDERED: DOXY1CAP57 PO (15:44)
[2024-06-28] MEDS ORDERED: PRED20TA2 PO (15:44)
--- NOTE | 2024-06-28 21:04 | DVHDSRES ---
Discharge Summary Date of Admission Resident Creating Document: ЕКАТЕРИНА CODY RESIDENT Jun 25, 2024 at 16:40 Date of Discharge: Jun 28, 2024 Admitting Diagnosis (1) COPD with acute exacerbation (2) COPD with acute bronchitis (3) Acute and chronic respiratory failure (4) Fever (5) SYST LUPUS ERYTHEMATOSIS (6) Dehydration Wounds: no wounds Labs/Diagnostic Data: Laboratory Results Test 06/28/24 05:25 06/28/24 04:00 06/27/24 11:40 06/27/24 05:07 White Blood Count 15.8 10^3/uL (4.4-10.8) Red Blood Count 3.71 10^6/uL (4.0-5.20) Hemoglobin 10.3 g/dL (12.2-16.2) Hematocrit 32.2 % (36.0-46.0) Mean Corpuscular Volume 86.7 fL (80.0-100.0) Mean Corpuscular Hemoglobin 27.9 pg (28.0-32.0) Mean Corpuscular Hemoglobin Concent 32.2 g/dL (32.0-36.0) Red Cell Distribution Width 16.4 % (11.8-14.3) Platelet Count 473 10^3/uL (140-450) Mean Platelet Volume 7.4 fL (6.9-10.8) Neutrophils (%) (Auto) 81.8 % (37.0-80.0) Lymphocytes (%) (Auto) 13.2 % (10.0-50.0) Monocytes (%) (Auto) 4.1 % (0.0-12.0) Eosinophils (%) (Auto) 0.5 % (0.0-7.0) Basophils (%) (Auto) 0.4 % (0.0-2.0) Neutrophils # (Auto) 12.9 10 ^3/uL (1.6-8.6) Lymphocytes # (Auto) 2.1 10 ^3/uL (0.4-5.4) Monocytes # (Auto) 0.7 10 ^3/uL (0-1.3) Eosinophils # (Auto) 0.1 10 ^3/uL (0-0.8) Basophils # (Auto) 0.1 10 ^3/uL (0-0.2) Nucleated Red Blood Cells 0.0 % Sodium Level 140 mmol/L (136-145) Potassium Level 4.6 mmol/L (3.5-5.1) Chloride Level 112 mmol/L (98-107) Carbon Dioxide Level 18 mmol/L (20-31) Anion Gap 10 (5-15) Blood Urea Nitrogen 26 mg/dL (9-23) Creatinine 1.19 mg/dL (0.550-1.02) Glomerular Filtration Rate Calc 49 mL/min (>90) BUN/Creatinine Ratio 21.8 (10.0-20.0) Serum Glucose 109 mg/dL (74-106) Calcium Level 10.4 mg/dL (8.7-10.4) Complement C3 168 mg/dL (82-167) Complement C4 45 mg/dL (12-38) Magnesium Level 2.0 mg/dL (1.6-2.6) Total Bilirubin < 0.2 mg/dL (0.2-1.0) Aspartate Amino Transferase (AST) 19 U/L (13-40) Alanine Aminotransferase (ALT) 14 U/L (7-40) Alkaline Phosphatase 132 U/L (46-116) Total Protein 6.3 g/dL (5.7-8.2) Albumin 4.2 g/dL (3.2-4.8) Test 06/26/24 06:45 06/25/24 11:05 06/25/24 11:00 06/25/24 10:40 Urine Color Light-yellow (Yellow) Urine Clarity Clear (Clear) Urine pH 6.5 (5.0-9.0) Urine Specific [place] 1.013 (1.001-1.035) Urine Protein Trace (Negative) Urine Ketones Negative (Negative) Urine Blood Negative /uL (Negative) Urine Nitrite Negative (Negative) Urine Bilirubin Negative (Negative) Urine Urobilinogen Normal mg/dL (Negative) Urine Leukocyte Esterase Trace /uL (Negative) Urine RBC 1 /hpf (0 - 4) Urine WBC 3 /hpf (0 - 5) Urine Squamous Epithelial Cells Few /hpf (<5) Urine Bacteria Few /hpf (None Seen) Urine Glucose Normal mg/dL (Normal) Lactic Acid Level 1.8 mmol/L (0.4-2.0) Influenza Type A Antigen Negative (Negative) Influenza Type B Antigen Negative (Negative) SARS-CoV-2 Antigen (Rapid) Negative (NEGATIVE) Troponin I High Sensitivity 12 ng/L (</=34) B-Type Natriuretic Peptide 76.63 pg/mL (0-100) Other Laboratory Tests 06/28/24 05:25 06/28/24 04:00 Brief Hx & Hospital Course: HPI Mrs. Ramirez is a 68-year-old female who came to the ED with chief complain of shortness of breath. She states having shortness of breath for the past 3 days, she is normally on home O2 at 2 L, states that for the last 2 days patient has had to increase the amount of oxygen at home. She has experienced fevers, headaches, chills and intermittent chest pain, on ED evaluation patient was shown to have signs of hypoxia recommended for admission via the ED for inpatient care and continued treatment. PMH: COPD, depression, hypertension, rheumatoid arthritis, lupus. PSH: gastric lymphadenectomy SH: Quit smoking 30 years ago, before that she smoked for around 25 years at least half a pack per day, denied using any drugs or alcohol Home medications: Amitriptyline 10 mg p.o. q.d., calcium carbonate 600 mg p.o. b.i.d., carisoprodol 350 mg p.o. q.d., cyproheptadine 4 mg p.o., diclofenac 75 mg p.o., folic acid 1 mg q.d., [place] 10 mg for 325 mg p.o. q.6 p.r.n., hydroxychloroquine 200 mg p.o. q.d., methotrexate 2.5 mg, metoprolol tartrate 50 mg p.o. b.i.d., omeprazole 20 mg p.o., trazodone 50 mg p.o. q.d., Hospital course Patient was hypoxic when she came to the ED and was placed on oxygen at a higher rate than her baseline. Suspecting COPD exacerbation and possible pneumonia from g positive versus Gram-negative versus atypical patient was started on Solu-Medrol 40 mg IV b.i.d., doxycycline and oxygen via nasal cannula at 3- 4L/min. Patient had bibasilar rales for which she was given furosemide IV. Over the course of hospital stay patient's oxygen requirement decreased and she came down to her baseline 2 L oxygen per minute. Patient had mild MARY likely hemodynamically mediated which was resolving at the time of discharge. Patient initially complained of diarrhea watery but eventually she was having formed stools, patient denied abdominal pain or tenderness. Patient was continued on her home medication of SLE, rheumatoid arthritis, depression. Patient was sent home in stable condition. Review of systems patient was in no acute distress, reported that she is feeling better and denied shortness of breath at rest, denied chest pain. Denied any abdominal pain, nausea, vomiting. Physical Examination General: Awake, alert, comfortable appearing, in no acute distress. HEENT: Head is normocephalic and atraumatic. Pupils are equal, round, and reactive to light. Extraocular muscles are intact. No nasal discharge. No facial trauma. Intraoral exam shows moist mucous membranes with no tonsillar enlargement or exudate. Neck: Supple with no cervical lymphadenopathy No meningismus. No goiter. Heart: Regular rate without murmur, rub, or gallop. Lungs: Bilateral breath sounds improved ,no wheezing, crackles improved. Abdomen: No external sign of injury. Bowel sounds are present. Abdomen is soft, nontender. No rebound, no guarding, no rigidity. There are no palpable masses. There is no flank pain on exam. Extremities: Strong peripheral pulses. There is no clubbing, no cyanosis, and no edema. Skin: No rash. Neurologic: Cranial nerves II-XII intact without motor, sensory, or cerebellar deficit, no asterixis. Discharge plan Patient is discharged in stable condition to home with the 2 L oxygen per minute, patient has oxygen at home. Follow up in the discharge clinic and follow up with the PCP in 1-2 weeks. Medication: Doxycycline 100 mg b.i.d. for 5 days, prednisone 40 mg p.o. for 3 days Continued on home medication Consults/Reason for consult no consultation Operations or Procedures Chest X ray FINDINGS: Lines and Tubes: None Lungs: Clear Pleura: No effusion. No pneumothorax. Cardiomediastinal contours: Unremarkable Bones: Unremarkable IMPRESSION: No acute disease. Renal ultrasound FINDINGS: The right kidney measures 9.3 cm in length. The left kidney measures 8.0 cm. There is a 1.9 cm right lower pole renal cyst. There is no sonographic evidence of nephrolithiasis or hydronephrosis. Bladder appears within normal limits with prevoid volume of 253 cc. IMPRESSION: Unremarkable renal ultrasound. Condition at Discharge: Good Final Diagnosis/Problems List #Acute on chronic hypoxic respiratory failure #Home oxygen at 2 L/min #COPD exacerbation #Possible pneumonia Gram-positive versus Gram-negative, versus atypical #MARY likely due to VMN #Diarrhea #SLE #RA #Depression #Anemia microcytic normochromic #Essential hypertension Discharge Disposition: Home Discharge Instruct/Medications Diet: Regular Activity: No Restrictions, As Tolerated Follow Up/Referral: Follow up with the PCP in one week Follow up in the discharge clinic in one week Medications: as per EMR Discharge Statement: "Patient was advised to return to the ER or call 911 if any headaches, dizziness, shortness of breath, chest pain, abdominal pain, bleeding, fevers, or worsening of medical condition. Patient was counseled about treatment plan, medications, possible side effects, patientverbalized understanding. All questions were answered to the best of my ability. This discharge took greater then 30 minutes in planning, reviewing documentation, counseling the patient, and discussing with other team members." ASSESSMENT ASSESSMENT Assessment #Acute on chronic hypoxic respiratory failure #Home oxygen at 2 L/min #COPD exacerbation #Possible pneumonia Gram-positive versus Gram-negative, versus atypical #MARY likely due to VMN #Diarrhea #SLE #RA #Depression #Anemia microcytic normochromic #Essential hypertension Date of Service: Jun 28, 2024 Billing Provider: GOVIND SEGOVIA MD Common Visit Codes: 87818-OCD/OBS DISCH DAY >30min ЕКАТЕРИНА CODY RESIDENT Jun 28, 2024 21:04 GOVIND SEGOVIA MD Jun 29, 2024 10:14
--- NOTE | 2024-07-04 11:09 | ECG ---
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
== END 2024-06-28 18:30 | disposition home or self-care (01) | DRG 177 ==
LOC: ER 10:23 → OVERFLOW 16:40 → EAST 22:44
PROVIDERS: ADMIT Student in an Organized Health Care Education/Training Program; ATTEND Student in an Organized Health Care Education/Training Program
DX: J15.69 Pneumonia due to other Gram-negative bacteria (principal); J96.21 Acute and chronic respiratory failure with hypoxia; N17.0 Acute kidney failure with tubular necrosis; J44.0 Chronic obstructive pulmonary disease with (acute) lower respiratory infection; J44.1 Chronic obstructive pulmonary disease with (acute) exacerbation; M06.9 Rheumatoid arthritis, unspecified; Z20.822 Contact with and (suspected) exposure to COVID-19; M32.9 Systemic lupus erythematosus, unspecified; I10 Essential (primary) hypertension; D50.9 Iron deficiency anemia, unspecified; F32.A Depression, unspecified; J20.9 Acute bronchitis, unspecified; I25.10 Atherosclerotic heart disease of native coronary artery without angina pectoris; F17.210 Nicotine dependence, cigarettes, uncomplicated; J15.9 Unspecified bacterial pneumonia; Z88.0 Allergy status to penicillin; Z79.899 Other long term (current) drug therapy
CPT/HCPCS: 36415; 36600; 71045; 76775; 80048; 80053; 81001; 82805; 83605; 83735; 83880; 84484; 85025; 86160; 87426; 87804; 93005; 94640; 97163; 99291; G0378; J1956; J2405; J3490

== ENCOUNTER 2024-10-26 18:26 | Inpatient (IN) | payer OTHER, MEDICAID ==
[~2024-10-26] VITALS: Ht 165.1 cm; Wt 53.0 kg
[~2024-10-26 18:26] MED LIST changes: -ACYC400T16 PO; +DOXY1CAP57 PO; -PRED-188; +PRED20TA2 PO; -PRED5PAK2
[2024-10-26] MEDS ORDERED: DexAMETHasone INJECTION 10 MG in D5W 5% 50 ML IV ONE (18:45)
[2024-10-26] MEDS: ACETAMINOPHEN 500 MG TAB or CAP PO ONE (18:45)
--- NOTE | 2024-10-26 18:57 | ED.PDOC ---
HPI Allergic reaction HPI Comments 68 year old female presents to the ED via EMS with a chief complaint of allergic reaction onset today. Per EMS, patient was at pain management, was given a higher dose than usual of "Tramadol", 60 mg IM, shortly after began experiencing urticaria as well as shortness of breath, wheezing, sweats. Patient was given a breathing treatment in route as well as 50 mg Benadryl IM, placed on 8 LPM with 100% O2 sat. PMHx HTN, COPD, CHF, anemia, cancer. Denies chest pain, dizziness, nausea, vomiting, diarrhea. No other symptoms or modifying factors present at this time. Discussed with the patient she states she was not sure the name of the medication, it could have been Toradol or tramadol. She did receive an IM injection. Patient's chart also lists so she has not allergy to ketorolac Chief Complaint: Allergic Reaction Time Seen by MD: 18:35 Primary Care Provider: DOROTHY Reviewed Notes: Medications, Allergies Allergies: Coded Allergies: Ketorolac (Verified Allergy, Unknown, 06/16/14) Penicillins (Verified Allergy, Unknown, 06/16/14) Tromethamine (Verified Allergy, Unknown, 06/16/14) Home Meds Active Scripts Prednisone (Prednisone) 20 Mg Tab, 40 MG PO DAILY for 3 Days, #6 MG Prov:ELIZABETH THOMSON RESIDENT 06/28/24 Doxycycline Monohydrate (Doxycycline Monohydrate) 100 Mg Cap, 1 CAP PO BID for 5 Days, #10 CAP Prov:ELIZABETH THOMSON RESIDENT 06/28/24 Calcium Carbonate-Vitamin D (Calcium 600-D) 1 Tab Tab, 1 TAB PO BID, #60 TAB 0 Refills Prov:FABIOLA WEISS MD 06/22/14 Omeprazole (Prilosec Susp (For Gt)) 20 Mg Cp, 40 MG PO BIDAC, #60 CAP Prov:FABIOLA WEISS MD 06/22/14 Reported Medications Carisoprodol (Carisoprodol) 350 Mg Tab, #90 07/27/14 Econazole Nitrate (Econazole Nitrate) 1 % Cre, #30 07/27/14 Folic Acid (Folic Acid) 1 Mg Tab, #30 07/27/14 Ranitidine Hcl (Ranitidine Hcl) 150 Mg Tab, #60 07/27/14 Brimonidine Tartrate (Brimonidine Tartrate) 0.2 % Shoshana, #15 07/27/14 Trazodone Hcl (Trazodone Hcl) 50 Mg Tab, #30 07/27/14 Hydroxychloroquine Sulfate (Hydroxychloroquine Sulfat) 200 Mg Tab, #30 07/27/14 Samxymhpva-Ymeysmn-Glrnfjal W/ (Aspirin/Butalbital/Caffei) Cod 30MG Cap, #60 07/27/14 Diclofenac Sodium (Diclofenac Sodium Dr) 75 Mg Tab, #60 07/27/14 Cyproheptadine Hcl (Cyproheptadine Hcl) 4 Mg Tab, #90 07/27/14 Methotrexate (Methotrexate) 2.5 Mg Tab, #24 07/27/14 Latanoprost (LATANOPROST) 0.005 % Shoshana, #3 07/27/14 Metoprolol Tartrate (Metoprolol Tartrate) 50 Mg Tab, #60 50MG bid 07/27/14 Potassium Chloride (Micro-K) 10 Meq Cap 2 CAPS DAILY 05/04/12 Hydrocodone-Acetaminophen (Vicodin) 1 Tab Tab 01/07/11 Methocarbamol (Robaxin) 500 Mg Tab 01/07/11 Amitriptyline Hcl (Elavil) 10 Mg Tb 01/07/11 Information Source: Patient, Emergency Med Personnel Mode of Arrival: EMS Severity: Moderate Duration: Since onset Prehospital treatment: Breathing Tx, Treatment Exposed to: Medication Developed: Rash, Shortness of Breath, Wheeze History of: None Modyifying Factors: None Vital Signs Vital Signs Date Time Temp Pulse Resp B/P (MAP) Pulse Ox O2 Delivery O2 Flow Rate FiO2 10/26/24 22:00 98.6 83 18 125/54 (77) 97 98.6 10/26/24 21:40 Nasal Cannula* 3 32 Physical Exam General: Awake, alert and oriented. No acute distress. Skin: Skin in warm, dry and intact. Appropriate color for ethnicity. HEENT: The head is normocephalic and atraumatic. Conjunctivae are clear without exudates or hemorrhage. Sclera is non-icteric. EOM are intact. No signs of nystagmus. Eyelids are normal in appearance without swelling or lesions. Oral mucosa is pink and moist Neck: The neck is supple with normal range of motion. No JVD. Cardiac: Heart rate and rhythm are normal. No murmurs, gallops, or rubs are auscultated. Respiratory: Patient is tachypneic with Wheezes throughout Abdominal: Abdomen is soft, non-tender without distention. Bowel sounds are present and normoactive in all four quadrants. Extremities: Upper and lower extremities are atraumatic in appearance without deformity or edema. Neurological: The patient is awake, alert and oriented to person, place, and time with normal speech. Speech is clear. There is no facial asymmetry. Psychiatric: Appropriate mood and affect. Good judgement and insight. Review of Systems: REVIEW OF SYSTEMS: No fever, no chills, or fatigue HEENT: No sore throat, no earache, no congestion, no neck pain. Cardiac: No chest pain. No palpitations. Lungs: Positive shortness of breath, positive cough. GI: No nausea, no vomiting, no diarrhea, no constipation, no abdominal pain : No dysuria, frequency, or urgency. No hematuria. Musculoskeletal: Positive right shoulder pain , no joint swelling, no extremity edema. Skin: No rash, positive bilateral foot itching Neuro: No headache, no dizziness, no weakness Past Medical History PAST MEDICAL HISTORY: Anemia, Arthritis, Cancer, CHF, COPD, Depression, HTN SPEECH/LANGUAGE THERAPIST History: No Pertinent SPEECH/LANGUAGE THERAPIST History Family History Family History: No family hx of Cancer, No family hx of DM, No family hx of Heart mc, No family hx of HTN Social History Smoker: Less Than 1 Pack/Day Alcohol: Rarely Drugs: Denies Drug Use Lives In: Home Was a procedure done? Was a procedure done?: No EKG EKG : Pulse Rate (adult): 163 Cardiac Rhythm: NSR (70 bpm) Comments No STEMI Differential diagnosis (all) Differential Diagnosis: Anaphylaxis, Angioedema, Bronchospasm, Contact Dermatitis, Drug Reaction, Hypotension, Other X-Ray, Labs, Meds, VS Vital Signs Date Time Temp Pulse Resp B/P (MAP) Pulse Ox O2 Delivery O2 Flow Rate FiO2 10/26/24 22:00 98.6 83 18 125/54 (77) 97 98.6 10/26/24 21:40 20 96 Nasal Cannula* 3 32 10/26/24 20:30 82 10/26/24 20:00 98.6 85 18 112/57 (75) 97 98.6 10/26/24 19:45 97 97 Nasal Cannula* 3 32 10/26/24 18:57 163 10/26/24 18:49 98.3 88 22 112/61 (78) 100 98.3 10/26/24 18:49 22 100 Cool Aerosol 8 N/A 10/26/24 18:32 70 Lab Test 10/26/24 21:15 10/26/24 19:36 Range/Units B-Type Natriuretic Peptide 120.32 0-100 pg/mL White Blood Count 14.3 H 4.4-10.8 10^3/uL Red Blood Count 4.17 4.0-5.20 10^6/uL Hemoglobin 11.6 L 12.2-16.2 g/dL Hematocrit 38.7 36.0-46.0 % Mean Corpuscular Volume 92.9 80.0-100.0 fL Mean Corpuscular Hemoglobin 27.9 L 28.0-32.0 pg Mean Corpuscular Hemoglobin Concent 30.1 L 32.0-36.0 g/dL Red Cell Distribution Width 16.5 H 11.8-14.3 % Platelet Count 499 H 140-450 10^3/uL Mean Platelet Volume 6.7 L 6.9-10.8 fL Neutrophils (%) (Auto) 71.9 37.0-80.0 % Lymphocytes (%) (Auto) 19.7 10.0-50.0 % Monocytes (%) (Auto) 5.0 0.0-12.0 % Eosinophils (%) (Auto) 3.0 0.0-7.0 % Basophils (%) (Auto) 0.4 0.0-2.0 % Neutrophils # (Auto) 10.3 H 1.6-8.6 10 ^3/uL Lymphocytes # (Auto) 2.8 0.4-5.4 10 ^3/uL Monocytes # (Auto) 0.7 0-1.3 10 ^3/uL Eosinophils # (Auto) 0.4 0-0.8 10 ^3/uL Basophils # (Auto) 0.1 0-0.2 10 ^3/uL Nucleated Red Blood Cells 0.0 % Sodium Level 137 136-145 mmol/L Potassium Level 3.8 3.5-5.1 mmol/L Chloride Level 111 H 98-107 mmol/L Carbon Dioxide Level 13 L 20-31 mmol/L Anion Gap 13 5-15 Blood Urea Nitrogen 13 9-23 mg/dL Creatinine 1.15 H 0.550-1.02 mg/dL Glomerular Filtration Rate Calc 52 >90 mL/min BUN/Creatinine Ratio 11.3 10.0-20.0 Serum Glucose 89 74-106 mg/dL Calcium Level 9.2 8.7-10.4 mg/dL Total Bilirubin < 0.2 L 0.2-1.0 mg/dL Aspartate Amino Transferase (AST) 12 L 13-40 U/L Alanine Aminotransferase (ALT) < 9 7-40 U/L Alkaline Phosphatase 116 46-116 U/L Troponin I High Sensitivity 11 </=34 ng/L Total Protein 7.3 5.7-8.2 g/dL Albumin 4.7 3.2-4.8 g/dL [place] [id number] Ph: [phone] DIAGNOSTIC IMAGING Diagnostic Imaging Report : [id number] Signed PATIENT: JAIRO RAY ACCT: [id number] UNIT: [id number] : 1955 LOC: ER ROOM / BED: / AGE / SEX: 68 / F ADM STATUS: REG ER SERVICE 33 ORDERING PHYSICIAN: TWIN GRIMALDO MD PROCEDURE(s): CXR1 - CHEST XRAY 1 VIEW REASON: allergic ORDER NUMBER(s): [id number], ACCESSION NUMBER(s): [id number] CHEST RADIOGRAPH Indication: allergic Technique: Single frontal view of the chest was obtained COMPARISON: XY CHEST XRAY 1 VIEW on DOS: 06/28/24, XY CHEST PORTABLE on DOS: 06/25/24 FINDINGS: Lines and Tubes: None Lungs: Clear Pleura: No effusion. No pneumothorax. Cardiomediastinal contours: Unremarkable Bones: Unremarkable IMPRESSION: No abnormality demonstrated. ATED BY: RAJENDRA ANAYA MD DICTATED DATE/TIME: 10/26/241916 SIGNED BY: RAJENDRA ANAYA MD SIGNED DATE/TIME: 10/26/241916 CC: Images Reviewed?: Images reviewed and evaluated by me (Independent interpretation of chest x-ray: No acute disease) Time of 1ST Reevaluation: 19:05 Reevaluation 1ST: Unchanged Patient Education/Counseling: Diagnosis, Treatment, Prognosis Family Education/Counseling: No Family Present Departure 1 Departure Time of Disposition: 22:00 Impression: Primary Impression: Allergic reaction Disposition: 09 ADMITTED INPATIENT Condition: Stable Comments 68-year-old female who presents to the emergency department with significant wheezing, shortness of breath secondary to allergic reaction to intramuscular injected medication which patient states is tramadol . Patient is stabilized in the emergency department Patient admitted for further treatment, evaluation and monitoring. Extensive evaluation was performed in attempt to identify or rule out: (See differential diagnosis section) The following tests were ordered, and results were reviewed by me and discussed with patient: (See diagnostic results section) The following test were independently interpreted by me: EKG, chest x-ray I reviewed and agreed with the following test results read by other providers: Chest x-ray I reviewed the following notes from the pt's past medical encounters: Encounter for COPD exacerbation June 2024 Additional information was gathered from interviewing the following independent historians: EMS personnel Discussion of management or test interpretation with external physician/other qualified health critical care physician: RAÚL Penn Addressed one or more chronic illnesses with severe exacerbation, progression, or side effects of treatment: COPD, an acute or chronic illness that poses a threat to life or bodily function: Acute allergic reaction Decision regarding hospitalization or escalation of hospital level of care: Risk and benefits of admission for further treatment of patient's condition was considered. Due to patient's current clinical condition, high risk of decline and poor outcome if discharged and need for further inpatient management and monitoring, patient will be admitted to the hospital. Drug therapy requiring intensive monitoring for toxicity: IV diphenhydramine Parenteral controlled substances: N/A Decision regarding elective major surgery with identified patient or procedure risk factors: N/A Decision regarding emergency major surgery: N/A Decision not to resuscitate or to de-escalate care because of poor prognosis: N/A Diagnosis or treatment significantly limited by social determinants of health: N/A Critical Care Note Critical Care Time?: No Stability Stability form required: No I personally scribed for MINTAH,CHAILLE A MD ([email or web address]) on 10/26/24 at 18:57. Electronically submitted by Taryn Berry ([email or web address]). I personally scribed for TWIN GRIMALDO MD ([email or web address]) on 10/26/24 at 22:17. Electronically submitted by Taryn Berry ([email or web address]). TWIN GRIMALDO MD Oct 26, 2024 18:57
--- NOTE | 2024-10-26 19:19 | DVH ---
CHEST RADIOGRAPH Indication: allergic Technique: Single frontal view of the chest was obtained COMPARISON: XY CHEST XRAY 1 VIEW on DOS: 06/28/24, XY CHEST PORTABLE on DOS: 06/25/24 FINDINGS: Lines and Tubes: None Lungs: Clear Pleura: No effusion. No pneumothorax. Cardiomediastinal contours: Unremarkable Bones: Unremarkable IMPRESSION: No abnormality demonstrated.
--- NOTE | 2024-10-26 19:39 | ECG ---
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
[2024-10-26 19:45] VITALS: PULSE 97; O2SAT 97
[2024-10-26 19:57] LABS: Basophils # (auto) 0.1 10 ^3/uL (0-0.2); Basophils % (auto) 0.4 % (0.0-2.0); Eosinophils # (auto) 0.4 10 ^3/uL (0-0.8); Hematocrit 38.7 % (36.0-46.0); Hemoglobin 11.6 g/dL (12.2-16.2); Lymphocytes # (auto) 2.8 10 ^3/uL (0.4-5.4); Lymphocytes % (auto) 19.7 % (10.0-50.0); Mean Corpuscular Hemoglobin 27.9 pg (28.0-32.0); Mean Corpuscular Hgb Conc. 30.1 g/dL (32.0-36.0); Mean Corpuscular Volume 92.9 fL (80.0-100.0); Monocytes # (auto) 0.7 10 ^3/uL (0-1.3); Neutrophils # (auto) 10.3 10 ^3/uL (1.6-8.6); Neutrophils % (auto) 71.9 % (37.0-80.0); Platelet Count (auto) 499 10^3/uL (140-450); Red Blood Cells 4.17 10^6/uL (4.0-5.20); Red Cell Distribution Width 16.5 % (11.8-14.3); White Blood Cell 14.3 10^3/uL (4.4-10.8)
[2024-10-26] MEDS: FAMOTIDINE (10MG/ML) 2ML VL IV ONE (20:02)
[2024-10-26 20:23] LABS: Albumin 4.7 g/dL (3.2-4.8); Alkaline Phosphatase 116 U/L (46-116); Anion Gap 13 (5-15); BUN/Creatinine Ratio 11.3 (10.0-20.0); Blood Urea Nitrogen 13 mg/dL (9-23); Calcium 9.2 mg/dL (8.7-10.4); Glucose 89 mg/dL (74-106); Potassium 3.8 mmol/L (3.5-5.1); Sodium 137 mmol/L (136-145); Total Protein 7.3 g/dL (5.7-8.2)
[2024-10-26 20:24] LABS: Alanine Aminotransferase < 9 U/L (7-40); Aspartate Aminotransferase 12 U/L (13-40); Bilirubin, Total < 0.2 mg/dL (0.2-1.0); Carbon Dioxide 13 mmol/L (20-31); Chloride 111 mmol/L (98-107)
[2024-10-26] MEDS: ALBUTEROL SULF 2.5 MG/0.5ML(0.5%) NEB SOLN NEB ONE (21:40)
[2024-10-26] MEDS: IPRATROPIUM BROM 0.5 MG/2.5ML INH SOL NEB ONE (21:40)
[2024-10-26 22:43] VITALS: BP 125/54; PULSE 83; RESP 18; TEMP 98.6; O2SAT 97
[2024-10-26] MEDS ORDERED: ONDANSETRON HCL 4 MG/2 ML VIAL IV PRN (22:45)
[2024-10-26] MEDS: HYDROCORTONE 1% TOPICAL CREAM 30 GM TUBE TOP ONE (23:00)
[2024-10-26] MEDS: GABAPENTIN 300 MG CAP PO ONE (23:28)
[2024-10-26] MEDS: AZITHROMYCIN 500MG/ 250ML 250 ML IV ONE (23:28)
[2024-10-26] MEDS: HYDROcodone-ACET 5/325MG TAB PO PRN (23:29)
[2024-10-26] MEDS: diphenhdrAMINE HCL 25 MG CAP PO PRN (23:30)
[2024-10-26] MEDS: LIDOCAINE 5% TOPICAL PATCH TOP ONE (23:31)
[2024-10-26] MEDS: DexAMETHasone SOD PHOS 10MG/1ML VIAL INJ IV ONE (23:31)
--- NOTE | 2024-10-26 23:57 | DVHHP2 ---
History of Present Illness Reason for Visit: Allergic reaction History of Present Illness 68-year-old female presents for evaluation of allergic reaction. Patient was seen early today by her pain management provider. She was given a shot of 60 mg of IM tramadol. She subsequently developed itchiness with shortness for breath and diaphoresis. Patient was placed on oxygen given Benadryl prior to arrival to the emergency department. Currently she denies shortness or breath. No chest pain, nausea or vomiting. No other acute complaints reported. Past Medical History COPD, hypertension, depression, CHF, cancer, anemia Past Surgical History Denies Family History Noncontributory Smoke: <1 pack per day ALCOHOL: none Drugs: None Lives: with Family Review of Systems Review of Systems Review of systems are currently negative otherwise addressed in HPI. Allergies: Coded Allergies: Ketorolac (Verified Allergy, Unknown, 06/16/14) Penicillins (Verified Allergy, Unknown, 06/16/14) Tromethamine (Verified Allergy, Unknown, 06/16/14) Medications Current Medications Medications Dose Ordered Sig/Elie Route Start Time Stop Time Status Last Admin Dose Admin Famotidine 20 mg DAILY IV 10/27/24 10:00 Levothyroxine Sodium 25 mcg QAM@0600 PO 10/27/24 06:00 Metoprolol Succinate 50 mg DAILY PO 10/27/24 10:00 Albuterol 2.5 mg Q6HPRN PRN NEB 10/26/24 22:30 Acetaminophen/ Hydrocodone Bitart 1 tab Q4HP PRN PO 10/26/24 22:45 10/26/24 23:29 1 TAB Ondansetron HCl 4 mg Q4HP PRN IV 10/26/24 22:45 Acetaminophen 650 mg Q6HP PRN PO 10/26/24 22:45 Diphenhydramine HCl 50 mg Q6HP PRN PO 10/26/24 22:45 10/26/24 23:30 50 MG Exam Vital Signs Vital Signs Date Time Temp Pulse Resp B/P (MAP) Pulse Ox O2 Delivery O2 Flow Rate FiO2 10/26/24 22:43 98.6 83 18 125/54 97 3.0 32 98.6 10/26/24 21:40 Nasal Cannula* Exam Gen: 68-year-old female in no apparent distress. Skin: Warm, dry, normal color and texture, no rash. HEENT: Normocephalic atraumatic, mucous membranes moist and pink. Neck: Cervical and supraclavicular nodes normal without enlargement, trachea is midline, thyroid gland is normal without masses. Pulmonary: Clear to auscultation and percussion bilaterally. Cardiac: Regular rate and rhythm. No murmur Abdomen: Soft, nontender, nondistended, bowel sounds present all 4 quadrants, no guarding, no rigidity, no organomegaly. Extremities: No cyanosis, clubbing, no edema Neuro: Cranial nerves II through XII grossly intact, normal affect and speech, no focal motor deficits. Labs/Xrays ORDERING PHYSICIAN: TWIN GRIMALDO MD PROCEDURE(s): CXR1 - CHEST XRAY 1 VIEW REASON: allergic ORDER NUMBER(s): [id number], ACCESSION NUMBER(s): [id number] CHEST RADIOGRAPH Indication: allergic Technique: Single frontal view of the chest was obtained COMPARISON: XY CHEST XRAY 1 VIEW on DOS: 06/28/24, XY CHEST PORTABLE on DOS: 06/25/24 FINDINGS: Lines and Tubes: None Lungs: Clear Pleura: No effusion. No pneumothorax. Cardiomediastinal contours: Unremarkable Bones: Unremarkable IMPRESSION: No abnormality demonstrated. Labs Test 10/26/24 23:00 10/26/24 21:15 10/26/24 19:36 Range/Units Lactic Acid Level 1.6 0.4-2.0 mmol/L B-Type Natriuretic Peptide 120.32 0-100 pg/mL White Blood Count 14.3 H 4.4-10.8 10^3/uL Red Blood Count 4.17 4.0-5.20 10^6/uL Hemoglobin 11.6 L 12.2-16.2 g/dL Hematocrit 38.7 36.0-46.0 % Mean Corpuscular Volume 92.9 80.0-100.0 fL Mean Corpuscular Hemoglobin 27.9 L 28.0-32.0 pg Mean Corpuscular Hemoglobin Concent 30.1 L 32.0-36.0 g/dL Red Cell Distribution Width 16.5 H 11.8-14.3 % Platelet Count 499 H 140-450 10^3/uL Mean Platelet Volume 6.7 L 6.9-10.8 fL Neutrophils (%) (Auto) 71.9 37.0-80.0 % Lymphocytes (%) (Auto) 19.7 10.0-50.0 % Monocytes (%) (Auto) 5.0 0.0-12.0 % Eosinophils (%) (Auto) 3.0 0.0-7.0 % Basophils (%) (Auto) 0.4 0.0-2.0 % Neutrophils # (Auto) 10.3 H 1.6-8.6 10 ^3/uL Lymphocytes # (Auto) 2.8 0.4-5.4 10 ^3/uL Monocytes # (Auto) 0.7 0-1.3 10 ^3/uL Eosinophils # (Auto) 0.4 0-0.8 10 ^3/uL Basophils # (Auto) 0.1 0-0.2 10 ^3/uL Nucleated Red Blood Cells 0.0 % Sodium Level 137 136-145 mmol/L Potassium Level 3.8 3.5-5.1 mmol/L Chloride Level 111 H 98-107 mmol/L Carbon Dioxide Level 13 L 20-31 mmol/L Anion Gap 13 5-15 Blood Urea Nitrogen 13 9-23 mg/dL Creatinine 1.15 H 0.550-1.02 mg/dL Glomerular Filtration Rate Calc 52 >90 mL/min BUN/Creatinine Ratio 11.3 10.0-20.0 Serum Glucose 89 74-106 mg/dL Calcium Level 9.2 8.7-10.4 mg/dL Total Bilirubin < 0.2 L 0.2-1.0 mg/dL Aspartate Amino Transferase (AST) 12 L 13-40 U/L Alanine Aminotransferase (ALT) < 9 7-40 U/L Alkaline Phosphatase 116 46-116 U/L Troponin I High Sensitivity 11 </=34 ng/L Total Protein 7.3 5.7-8.2 g/dL Albumin 4.7 3.2-4.8 g/dL Assessment/Plan Assessment/Plan Assessment Anaphylaxis Hypertension Chronic pain syndrome Plan Admit the patient to [facility] to the hospitalist Pepcid/Benadryl/Tylenol Pain management Continue treatment per orders. Plan discussed with: Patient My Orders Orders - LYLE ABBBCNP Procedure Category Date Status Time Admit ADMIT 10/26/24 Transmitted 22:25 Famotidine Injection PHA 10/27/24 In Process (Pepcid Injection) 10:00 Levothyroxine Tablet PHA 10/27/24 In Process (Synthroid Tablet) 06:00 Metoprolol Xl PHA 10/27/24 In Process Succinate (Toprol Xl) 10:00 Albuterol Medneb PHA 10/26/24 In Process (Ventolin Medneb) 22:30 Basic Metabolic Panel LAB 10/27/24 Verified 04:00 Hydrocodone-Acet PHA 10/26/24 In Process 5/325mg Tab ([place] 22:45 Ondansetron Hcl PHA 10/26/24 In Process (Zofran) 22:45 Cardiac DIET 10/27/24 Transmitted Diet-2gna,Lofat,Lochol Breakfast Condition: Stable HOLLY 10/26/24 In Process 22:34 Acetaminophen Tablet PHA 10/26/24 In Process (Tylenol Tablet) 22:45 Bedrest With Bathroom HOLLY 10/26/24 In Process Privileg 22:34 Diphenhdramine PHA 10/26/24 In Process Capsule (Benadryl 22:45 Date of Service: Oct 26, 2024 Billing Provider: LYLE BABB Common Visit Codes: [id number] INP/OBS CARE (MOD) LYLE BABB Oct 26, 2024 23:57
[2024-10-27] VITALS (12 sets, daily range): BP systolic 115–134; BP diastolic 50–81; PULSE 19–94; RESP 17–20; TEMP 97.9–98.3; O2SAT 96–100
--- NOTE | 2024-10-27 00:57 | ECG ---
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
[2024-10-27 02:02] LABS: Rapid Influenza A Negative (Negative); Rapid Influenza B Negative (Negative)
[2024-10-27 02:03] LABS: COVID19 ANTIGEN SOFIA FIA NEGATIVE (NEGATIVE)
[2024-10-27] MEDS: LEVOTHYROXINE SODIUM 25 MCG TAB PO SCH (06:20)
[2024-10-27] MEDS: ALBUTEROL SULF 2.5 MG/0.5ML(0.5%) NEB SOLN NEB PRN (09:12)
[2024-10-27] MEDS: FAMOTIDINE (10MG/ML) 2ML VL IV SCH (09:31)
[2024-10-27] MEDS: METOPROLOL SUCCINATE XL 50 MG TAB PO SCH (09:32)
[2024-10-27] MEDS: ACETAMINOPHEN 325 MG TAB PO PRN (09:37)
[2024-10-27 10:51] LABS: Calcium 9.2 mg/dL (8.7-10.4); Sodium 139 mmol/L (136-145)
[2024-10-27 10:52] LABS: Anion Gap 10 (5-15); Carbon Dioxide 16 mmol/L (20-31); Chloride 113 mmol/L (98-107)
[2024-10-27 10:56] LABS: Urine Bacteria None Seen /hpf (None Seen)
[2024-10-27 10:57] LABS: BUN/Creatinine Ratio 12.3 (10.0-20.0); Blood Urea Nitrogen 15 mg/dL (9-23)
[2024-10-27 11:07] LABS: Glucose 112 mg/dL (74-106)
[2024-10-27 11:12] LABS: Urine Blood Negative /uL (Negative); Urine Clarity Clear (Clear); Urine Color Light-Yellow (Yellow); Urine Protein, UAD TRACE (Negative); Urine Specific Gravity 1.014 (1.001-1.035); Urine Squamous Epithelial Cell None Seen /hpf (<5); Urine Urobilinogen Normal (Negative); Urine WBC < 1 /HPF (0-5); Urine pH 6.5 (5.0-9.0)
--- NOTE | 2024-10-27 13:03 | DVHPN2 ---
Reviewed: Care Plan, H&P, Labs, Medications, Previous Orders, Radiology Changes from previous H/P or p: No Changes Objective Vitals Vital Signs Date Time Temp Pulse Resp B/P (MAP) Pulse Ox O2 Delivery O2 Flow Rate FiO2 10/27/24 10:05 94 18 100 10/27/24 09:57 Nasal Cannula* 1 24 10/27/24 09:32 115/62 10/27/24 09:08 97.9 97.9 Intake/Output Intake and Output 10/27/24 07:00 Intake Total 250 ml Balance 250 ml Intake IV Total 250 ml Medications Current Medications Medications Dose Ordered Sig/Elie Route Start Time Stop Time Status Last Admin Dose Admin Famotidine 20 mg DAILY IV 10/27/24 10:00 10/27/24 09:31 20 MG Levothyroxine Sodium 25 mcg QAM@0600 PO 10/27/24 06:00 10/27/24 06:20 25 MCG Metoprolol Succinate 50 mg DAILY PO 10/27/24 10:00 10/27/24 09:32 50 MG Albuterol 2.5 mg Q6HPRN PRN NEB 10/26/24 22:30 10/27/24 09:57 2.5 MG Acetaminophen/ Hydrocodone Bitart 1 tab Q4HP PRN PO 10/26/24 22:45 10/27/24 12:30 1 TAB Ondansetron HCl 4 mg Q4HP PRN IV 10/26/24 22:45 Acetaminophen 650 mg Q6HP PRN PO 10/26/24 22:45 10/27/24 09:37 650 MG Diphenhydramine HCl 50 mg Q6HP PRN PO 10/26/24 22:45 10/26/24 23:30 50 MG Laboratory Results Laboratory Tests 10/26/24 19:36 10/27/24 10:15 Chemistry Test 10/26/24 19:36 10/27/24 10:15 Albumin 4.7 g/dL (3.2-4.8) Calcium Level 9.2 mg/dL (8.7-10.4) 9.2 mg/dL (8.7-10.4) Total Protein 7.3 g/dL (5.7-8.2) Cardiac Markers Test 10/26/24 21:15 B-Type Natriuretic Peptide 120.32 pg/mL (0-100) LFT Test 10/26/24 19:36 Alanine Aminotransferase (ALT) < 9 U/L (7-40) Alkaline Phosphatase 116 U/L (46-116) Aspartate Amino Transferase (AST) 12 U/L (13-40) L Total Bilirubin < 0.2 mg/dL (0.2-1.0) L Urinalysis Test 10/27/24 10:00 Urine Color Light-yellow (Yellow) Urine Clarity Clear (Clear) Urine pH 6.5 (5.0-9.0) Urine Specific [place] 1.014 (1.001-1.035) Urine Protein Trace (Negative) H Urine Ketones Negative (Negative) Urine Blood Negative /uL (Negative) Urine Nitrite Negative (Negative) Urine Bilirubin Negative (Negative) Urine Urobilinogen Normal mg/dL (Negative) Urine Leukocyte Esterase Negative /uL (Negative) Urine RBC None seen /hpf (0 - 4) Urine Microscopic WBC < 1 /HPF (0-5) Urine Squamous Epithelial Cells None seen /hpf (<5) Urine Bacteria None seen /hpf (None Seen) Urine Glucose Normal mg/dL (Normal) Labs and/or images reviewed: Labs reviewed by me, Image(s) reviewed by me Assessment/Plan Assessment/Plan Anaphylaxis to tramadol injection treated with the Benadryl Decadron Pepcid Hypertension Chronic pain syndrome COPD Hypertension Depression Congestive heart failure Chronic anemia History of Hodgkin's lymphoma diagnosed eight years ago treated at [facility] Chronic pain syndrome History of lupus under the treatment of Dr. Miguelito Garcia Plan discussed with: Patient Date of Service: Oct 27, 2024 Billing Provider: JAMES WILLAMS MD Common Visit Codes: [id number] INP/OBS CARE(HIGH) JAMES WILLAMS MD Oct 27, 2024 13:03
[2024-10-27] MEDS: MAALOX PLUS or MAALOX 30 ML PO ONE (16:34)
[2024-10-27] MEDS: diphenhdrAMINE HCL 25 MG CAP PO ONE (23:44)
[2024-10-28 01:00] VITALS: BP 126/70; PULSE 72; RESP 18; TEMP 98; O2SAT 97
[2024-10-28 05:00] VITALS: BP 120/67; PULSE 69; RESP 18; TEMP 98.4; O2SAT 99
[2024-10-28 08:00] VITALS: PULSE 77; RESP 18; O2SAT 96
[2024-10-28 08:58] VITALS: BP 121/75; PULSE 77; RESP 18; TEMP 98.1; O2SAT 97
--- NOTE | 2024-10-28 11:28 | DVHPN2 ---
Reviewed: Care Plan, H&P, Labs, Medications, Previous Orders, Radiology Changes from previous H/P or p: No Changes Objective Vitals Vital Signs Date Time Temp Pulse Resp B/P (MAP) Pulse Ox O2 Delivery O2 Flow Rate FiO2 10/28/24 08:58 98.1 77 18 121/75 (90) 97 98.1 10/28/24 08:00 Nasal Cannula* 2 28 Intake/Output Intake and Output 10/28/24 07:00 Intake Total 1260 ml Output Total 750 ml Balance 510 ml Intake Oral 1260 ml Output Urine Total 750 ml # Voids 2 Medications Current Medications Medications Dose Ordered Sig/Elie Route Start Time Stop Time Status Last Admin Dose Admin Famotidine 20 mg DAILY IV 10/27/24 10:00 10/28/24 08:47 20 MG Levothyroxine Sodium 25 mcg QAM@0600 PO 10/27/24 06:00 10/28/24 05:56 25 MCG Metoprolol Succinate 50 mg DAILY PO 10/27/24 10:00 10/28/24 08:48 50 MG Albuterol 2.5 mg Q6HPRN PRN NEB 10/26/24 22:30 10/27/24 15:21 2.5 MG Acetaminophen/ Hydrocodone Bitart 1 tab Q4HP PRN PO 10/26/24 22:45 10/28/24 08:48 1 TAB Ondansetron HCl 4 mg Q4HP PRN IV 10/26/24 22:45 Acetaminophen 650 mg Q6HP PRN PO 10/26/24 22:45 10/27/24 09:37 650 MG Diphenhydramine HCl 50 mg Q6HP PRN PO 10/26/24 22:45 10/27/24 18:50 50 MG Laboratory Results Laboratory Tests 10/26/24 19:36 10/27/24 10:15 Urinalysis Test 10/27/24 10:00 Urine Color Light-yellow (Yellow) Urine Clarity Clear (Clear) Urine pH 6.5 (5.0-9.0) Urine Specific [place] 1.014 (1.001-1.035) Urine Protein Trace (Negative) H Urine Ketones Negative (Negative) Urine Blood Negative /uL (Negative) Urine Nitrite Negative (Negative) Urine Bilirubin Negative (Negative) Urine Urobilinogen Normal mg/dL (Negative) Urine Leukocyte Esterase Negative /uL (Negative) Urine RBC None seen /hpf (0 - 4) Urine Microscopic WBC < 1 /HPF (0-5) Urine Squamous Epithelial Cells None seen /hpf (<5) Urine Bacteria None seen /hpf (None Seen) Urine Glucose Normal mg/dL (Normal) Labs and/or images reviewed: Labs reviewed by me, Image(s) reviewed by me Assessment/Plan Assessment/Plan Anaphylaxis to tramadol injection treated with Benadryl Decadron Pepcid Hypertension Chronic pain syndrome COPD Hypertension Depression Congestive heart failure Chronic anemia History of Hodgkin's lymphoma diagnosed eight years ago treated at [facility] Chronic pain syndrome History of lupus under the treatment of Dr. Miguelito Garcia Plan discussed with: Patient My Orders Orders - JAMES WILLAMS MD Procedure Category Date Status Time Regular Diet DIET 10/27/24 Transmitted Lunch Date of Service: Oct 28, 2024 Billing Provider: JAMES WILLAMS MD Common Visit Codes: [id number] INP/OBS CARE(HIGH) JAMES WILLAMS MD Oct 28, 2024 11:28
[2024-10-28] MEDS ORDERED: PRED20TA2 PO (11:37)
[2024-10-28] MEDS ORDERED: METH-1181 PO (11:37)
[2024-10-28] MEDS ORDERED: DIPH25CA66 PO (11:37)
--- NOTE | 2024-10-28 11:40 | DVHDS2 ---
Discharge Summary Date of Admission Oct 26, 2024 at 22:25 Date of Discharge: Oct 28, 2024 Admitting Diagnosis Allergic reaction to Toradol injection Wounds: None Labs/Diagnostic Data: Laboratory Results Test 10/27/24 10:15 10/27/24 10:00 10/27/24 01:15 10/26/24 23:00 Sodium Level 139 mmol/L (136-145) Potassium Level 5.0 mmol/L (3.5-5.1) Chloride Level 113 mmol/L (98-107) Carbon Dioxide Level 16 mmol/L (20-31) Anion Gap 10 (5-15) Blood Urea Nitrogen 15 mg/dL (9-23) Creatinine 1.22 mg/dL (0.550-1.02) Glomerular Filtration Rate Calc 48 mL/min (>90) BUN/Creatinine Ratio 12.3 (10.0-20.0) Serum Glucose 112 mg/dL (74-106) Calcium Level 9.2 mg/dL (8.7-10.4) Urine Color Light-yellow (Yellow) Urine Clarity Clear (Clear) Urine pH 6.5 (5.0-9.0) Urine Specific [place] 1.014 (1.001-1.035) Urine Protein Trace (Negative) Urine Ketones Negative (Negative) Urine Blood Negative /uL (Negative) Urine Nitrite Negative (Negative) Urine Bilirubin Negative (Negative) Urine Urobilinogen Normal mg/dL (Negative) Urine Leukocyte Esterase Negative /uL (Negative) Urine RBC None seen /hpf (0 - 4) Urine Microscopic WBC < 1 /HPF (0-5) Urine Squamous Epithelial Cells None seen /hpf (<5) Urine Bacteria None seen /hpf (None Seen) Urine Glucose Normal mg/dL (Normal) Influenza Type A Antigen Negative (Negative) Influenza Type B Antigen Negative (Negative) SARS-CoV-2 Antigen (Rapid) Negative (NEGATIVE) Lactic Acid Level 1.6 mmol/L (0.4-2.0) Test 10/26/24 21:15 10/26/24 19:36 B-Type Natriuretic Peptide 120.32 pg/mL (0-100) White Blood Count 14.3 10^3/uL (4.4-10.8) Red Blood Count 4.17 10^6/uL (4.0-5.20) Hemoglobin 11.6 g/dL (12.2-16.2) Hematocrit 38.7 % (36.0-46.0) Mean Corpuscular Volume 92.9 fL (80.0-100.0) Mean Corpuscular Hemoglobin 27.9 pg (28.0-32.0) Mean Corpuscular Hemoglobin Concent 30.1 g/dL (32.0-36.0) Red Cell Distribution Width 16.5 % (11.8-14.3) Platelet Count 499 10^3/uL (140-450) Mean Platelet Volume 6.7 fL (6.9-10.8) Neutrophils (%) (Auto) 71.9 % (37.0-80.0) Lymphocytes (%) (Auto) 19.7 % (10.0-50.0) Monocytes (%) (Auto) 5.0 % (0.0-12.0) Eosinophils (%) (Auto) 3.0 % (0.0-7.0) Basophils (%) (Auto) 0.4 % (0.0-2.0) Neutrophils # (Auto) 10.3 10 ^3/uL (1.6-8.6) Lymphocytes # (Auto) 2.8 10 ^3/uL (0.4-5.4) Monocytes # (Auto) 0.7 10 ^3/uL (0-1.3) Eosinophils # (Auto) 0.4 10 ^3/uL (0-0.8) Basophils # (Auto) 0.1 10 ^3/uL (0-0.2) Nucleated Red Blood Cells 0.0 % Total Bilirubin < 0.2 mg/dL (0.2-1.0) Aspartate Amino Transferase (AST) 12 U/L (13-40) Alanine Aminotransferase (ALT) < 9 U/L (7-40) Alkaline Phosphatase 116 U/L (46-116) Troponin I High Sensitivity 11 ng/L (</=34) Total Protein 7.3 g/dL (5.7-8.2) Albumin 4.7 g/dL (3.2-4.8) Other Laboratory Tests 10/27/24 10:15 10/26/24 19:36 Brief Hx & Hospital Course: 68-year-old female with a history of chronic pain syndrome hypertension COPD depression congestive heart failure Hodgkin's lymphoma diagnosed eight years ago treated at [facility] history of lupus and the treatment of Dr. Garcia had Toradol injection 60 mg intramuscular by her Dr and came to the ER with severe anaphylactic reaction. Treated with Benadryl Solu-Medrol and Pepcid injection patient has significantly improved. At the time of discharge patient has no rash vital signs are stable afebrile. Patient was advised to avoid Toradol injection in the fissure. Prescription sent pharmacy for Benadryl prednisone tablets and Robaxin for chronic muscular pain. Consults/Reason for consult None Operations or Procedures none Condition at Discharge: Fair Final Diagnosis/Problems List Anaphylaxis to Toradol injection treated with Benadryl Decadron Pepcid Hypertension Chronic pain syndrome COPD Hypertension Depression Congestive heart failure Chronic anemia History of Hodgkin's lymphoma diagnosed eight years ago treated at [facility] Chronic pain syndrome History of lupus under the treatment of Dr. 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 Patient was counseled about treatment plan, medications, possible side effects, patientverbalized understanding. All questions were answered to the best of my ability. This discharge took greater then 30 minutes in planning, reviewing documentation, counseling the patient, and discussing with other team members." ASSESSMENT ASSESSMENT Hospital Course Improved Assessment Anaphylaxis to Toradol injection treated with Benadryl Decadron Pepcid Hypertension Chronic pain syndrome COPD Hypertension Depression Congestive heart failure Chronic anemia History of Hodgkin's lymphoma diagnosed eight years ago treated at [facility] Chronic pain syndrome History of lupus under the treatment of Dr. Miguelito Garcia Date of Service: Oct 28, 2024 Billing Provider: JAMES WILLAMS MD Common Visit Codes: [id number] DISCH DAY >30min JAMES WILLAMS MD Oct 28, 2024 11:40
[2024-10-28 12:30] VITALS: BP 130/79; PULSE 83; RESP 19; TEMP 97.7; O2SAT 100
[2024-10-28 13:00] VITALS: BP 130/79; PULSE 83; RESP 19; TEMP 97.7; O2SAT 100
== END 2024-10-28 14:30 | disposition home or self-care (01) | DRG 915 ==
LOC: ER 18:26 → EDBD 18:26 → OVERFLOW 22:25 → WEST WING 10-27 05:22
PROVIDERS: ADMIT Family Medicine; ATTEND Family Medicine
DX: T88.6XXA Anaphylactic reaction due to adverse effect of correct drug or medicament properly administered, initial encounter (principal); J96.01 Acute respiratory failure with hypoxia; G89.4 Chronic pain syndrome; J44.9 Chronic obstructive pulmonary disease, unspecified; I50.9 Heart failure, unspecified; D64.9 Anemia, unspecified; I11.0 Hypertensive heart disease with heart failure; F32.A Depression, unspecified; F17.210 Nicotine dependence, cigarettes, uncomplicated; T40.425A Adverse effect of tramadol, initial encounter; Z88.0 Allergy status to penicillin; Z88.8 Allergy status to other drugs, medicaments and biological substances; Z79.899 Other long term (current) drug therapy; Z85.71 Personal history of Hodgkin lymphoma; Y92.89 Other specified places as the place of occurrence of the external cause
CPT/HCPCS: 36415; 71045; 80048; 80053; 81001; 83605; 83880; 84484; 85025; 87426; 87804; 93005; 94640; 96374; G0378; J1100; J3490; J7060

== ENCOUNTER 2024-12-26 09:05 | Outpatient (CLI) | payer OTHER, MEDICAID ==
[~2024-12-26 09:05] MED LIST changes: -BRIM0.2S17; +BRIM0.2S17 EACHEYE; +DIPH25CA66 PO; -FOLI-119; +FOLI-119 PO; -LATA0.008; +LATA0.008 EACHEYE; +METH-1181 PO; -TRAZ-227; +TRAZ-227 PO
[2024-12-26 09:25] VITALS: BP 122/76; PULSE 60; RESP 16; O2SAT 93
[2024-12-26 09:56] VITALS: BP 136/63; PULSE 62; RESP 16; O2SAT 93
[2024-12-26] MEDS ORDERED: OMEP-434 PO (11:57)
[2024-12-26] MEDS ORDERED: PRE5T PO (11:57)
[2024-12-26] MEDS ORDERED: MET50T PO (11:57)
[2024-12-26] MEDS ORDERED: DICL1GEL72 TOP (11:57)
[2024-12-26] MEDS ORDERED: BUTA-259 PO (11:57)
[2024-12-26] MEDS ORDERED: FLUT1AER3 IN (12:09)
[2024-12-26] MEDS ORDERED: MELO7.5T7 PO (12:09)
[2024-12-26] MEDS ORDERED: TIMO0.5S28 EACHEYE (12:09)
[2024-12-26] MEDS ORDERED: IPRA0.00 NEB (12:09)
[2024-12-26] MEDS ORDERED: LEVO25TA6 PO (12:09)
[2024-12-26] MEDS ORDERED: ERGO2000 PO (12:09)
[2024-12-26] MEDS ORDERED: NITR0.4S29 SL (12:09)
[2024-12-26] MEDS ORDERED: ALBU108A5 IN (12:09)
[2024-12-26] MEDS ORDERED: HYDR-4798 PO (12:09)
[2024-12-26] MEDS ORDERED: ASPI1TAB19 PO (12:09)
[2024-12-26] MEDS ORDERED: ATOR20TA50 PO (12:09)
[2024-12-26] MEDS ORDERED: MEGE40TA4 PO (12:09)
[2024-12-26] MEDS ORDERED: ASCO500T11 PO (12:09)
--- NOTE | 2024-12-26 14:01 | DVH ---
XY CHEST TWO VIEWS ROUTINE CLINICAL HISTORY: PRE OP CARDIAC CLEARANCE COMPARISON: None TECHNIQUE: Frontal and lateral view of the chest was obtained FINDINGS: Lines and Tubes: None Lungs: No focal consolidation. Pleura: No effusion. No pneumothorax. Cardiomediastinal contours: Unremarkable Bones: No acute osseous abnormality. IMPRESSION: No acute cardiopulmonary disease.
== END 2024-12-26 17:00 | disposition home or self-care (01) ==
LOC: Rad HDHVI 09:05
PROVIDERS: ATTEND Internal Medicine Cardiovascular Disease
DX: Z01.818 Encounter for other preprocedural examination (principal); R07.89 Other chest pain
CPT/HCPCS: 71046; 93005; G0463

== ENCOUNTER 2024-12-29 06:56 | Day surgery (SDC) | payer OTHER, MEDICAID ==
[2024-12-26 12:19] LABS: Basophils # (auto) 0.1 10 ^3/uL (0-0.2); Basophils % (auto) 0.9 % (0.0-2.0); Eosinophils # (auto) 0.4 10 ^3/uL (0-0.8); Eosinophils % (auto) 2.9 % (0.0-7.0); Hemoglobin 12.5 g/dL (12.2-16.2); Lymphocytes # (auto) 2.9 10 ^3/uL (0.4-5.4); Lymphocytes % (auto) 22.9 % (10.0-50.0); Mean Corpuscular Hemoglobin 28.8 pg (28.0-32.0); Mean Corpuscular Hgb Conc. 32.2 g/dL (32.0-36.0); Mean Corpuscular Volume 89.6 fL (80.0-100.0); Monocytes % (auto) 7.8 % (0.0-12.0); Neutrophils # (auto) 8.2 10 ^3/uL (1.6-8.6); Neutrophils % (auto) 65.5 % (37.0-80.0); Nucleated Red Blood Cells % 0.3 %; Platelet Count (auto) 442 10^3/uL (140-450); Red Blood Cells 4.35 10^6/uL (4.0-5.20); Red Cell Distribution Width 16.7 % (11.8-14.3); White Blood Cell 12.6 10^3/uL (4.4-10.8)
[2024-12-26 12:30] LABS: Anion Gap 10 (5-15); Partial Thromboplastin Time 21.4 SEC (24.5-34.5); Potassium 4.7 mmol/L (3.5-5.1); Prothrombin Time 10.6 sec (9.3-11.8); Sodium 143 mmol/L (136-145)
[2024-12-26 12:31] LABS: Calcium 9.7 mg/dL (8.7-10.4)
[2024-12-26 12:36] LABS: BUN/Creatinine Ratio 11.7 (10.0-20.0); Blood Urea Nitrogen 13 mg/dL (9-23); Glucose 85 mg/dL (74-106)
[2024-12-26 12:37] LABS: Carbon Dioxide 17 mmol/L (20-31); Chloride 116 mmol/L (98-107)
[~2024-12-29] VITALS: Ht 152.4 cm; Wt 55.3 kg
[2024-12-29] VITALS (8 sets, daily range): BP systolic 134–176; BP diastolic 55–113; PULSE 64–73; RESP 11–16; TEMP 97.6; O2SAT 97–99
[~2024-12-29 06:56] MED LIST changes: +ALBU108A5 IN; -AMIT10TA11; +ASCO500T11 PO; +ASPI1TAB19 PO; +ATOR20TA50 PO; +BUTA-259 PO; -BUTA1CAP31; -CALCTAB25 PO; -CARI-578; -CYPR4TAB50; +DICL1GEL72 TOP; -DICL75TA4; -DIPH25CA66 PO; -DOXY1CAP57 PO; -ECON1CRE6; +ERGO2000 PO; +FLUT1AER3 IN; -FOLI-119 PO; -HYDR-1421; +HYDR-4798 PO; -HYDR200T36; +IPRA0.00 NEB; +LEVO25TA6 PO; +MEGE40TA4 PO; +MELO7.5T7 PO; +MET50T PO; -METH-1181 PO; -METH-562; -METH2.5T; -METO-158; +NITR0.4S29 SL; -OME20GT PO; +OMEP-434 PO; -POTA10CA29; +PRE5T PO; -PRED20TA2 PO; -RANI-226; +TIMO0.5S28 EACHEYE
[2024-12-29] MEDS: IOHEXOL 350 MG/ML 100ML IJ ONE ×3 (07:15→08:27)
[2024-12-29] MEDS: fentaNYL CITRATE 100 MCG/2 ML VL ONE (07:26)
[2024-12-29] MEDS: HEPARIN SODIUM (PORCINE) 5000 UNITS/ML 1ML VIAL ONE (07:26)
[2024-12-29] MEDS: VERAPAMIL 2.5MG/ML INJ 2ML VIAL IV ONE (07:26)
[2024-12-29] MEDS: ANGIOMAX 250 MG VIAL IV ONE (07:26)
[2024-12-29] MEDS: LIDOCAINE 2%HCL (LOCAL ANESTH.) INJ 20ML MDV ONE (07:27)
[2024-12-29] MEDS: MIDAZOLAM HCL 2MG/2ML 2ml VIAL (1mg/ml) ONE (07:27)
[2024-12-29] MEDS: SODIUM CHL 0.9% 50 ML ONE (07:27)
[2024-12-29] MEDS: ASPirin 81 mg TAB ONE (08:36)
[2024-12-29] MEDS: CLOPIDOGREL BISULFATE 75 MG TAB ONE (08:36)
[2024-12-29] MEDS ORDERED: ACETAMINOPHEN 325 MG TAB PO ONE (10:05)
[2024-12-29] MEDS: ACETAMINOPHEN 325 MG TAB PO ONE (10:07)
--- NOTE | 2024-12-29 10:30 | DVHOP ---
DATE OF SURGERY: 12/29/2024 PROCEDURES PERFORMED: * Selective left and right coronary angiography. * Ventriculogram. * Right iliac angiography. * Conscious sedation. * Angioplasty and stent placement of the left anterior descending artery with 2.75 x 22 mm [place] stent. * Shockwave thrombectomy of the left anterior descending artery. * FFR of the left anterior descending artery with measured 0.79. DESCRIPTION OF PROCEDURE: The patient was prepped and draped under sterile condition. Then, 1% Xylocaine was used to anesthetize the right groin. Using Cook needle, right femoral artery was engaged with Seldinger technique. A 6-[place] Lucian sheath was introduced in the right femoral artery. Using a 6-[place] JL4 catheter, and 6-[place] JR4 catheter selective left and right coronary angiography was performed. Using a 6-[place]ian pigtail catheter, ventriculogram was done. The 6-[place] Lucian diagnostic system was exchanged for a 6-[place] Lucian interventional system. Using an XP guide catheter, left main was cannulated. ChoicePT extra support wire was used to cross the left anterior descending artery. It was then Shockwaved using 2.5 x 13 mm thrombectomy Shockwave device. Following that, a 2.75 x 22 mm [place] stent was deployed across the mid portion of the LAD, with now complete revascularization. The patient denied any chest pain at this time following angioplasty. Ejection fraction was 60%. There were no complications. The patient tolerated the procedure well. RESULTS: * The patient with 75% narrowing of the mid LAD, status post angioplasty with stent placement, thrombectomy, and FFR with less than 10% residual stenosis. * Left main without any flow restrictive lesion. * Circumflex has mild intimal irregularity, especially in the proximal segment that requires yearly evaluation. * Right coronary artery, mild diffuse disease without any flow restrictive lesion. * Left ventricular function was preserved with an estimated EF of 55% and LVEDP of 16 mmHg. Ulises Salmeron MD SA/NAS TID: [id number] RECEIPT: [id number]
--- NOTE | 2024-12-29 11:43 | DVHDS ---
DATE OF DISCHARGE: 12/29/2024 HOSPITAL COURSE: The patient is status post angioplasty and stent placed in the left anterior descending artery and now clinically stable. May be discharged home. Follow up with me in 1 week. Stable at the time of discharge. DISPOSITION: Home. ACTIVITY: As instructed. DIET: 2 g sodium diet. Ulises Salmeron MD SA/KATIE/VENESSA TID: [id number] RECEIPT: [id number]
--- NOTE | 2024-12-29 17:57 | DVHHP ---
ADMIT DATE: 12/29/2024 HISTORY OF PRESENT ILLNESS: The patient who is 69 years old with history of coronary artery disease, history of tobacco use, discontinued smoking in 2004 but she has 20-plus years of smoking history. She now has chest pain, abnormal stress test, and because of the ongoing discomfort, it is felt that the patient should undergo coronary angiography to define coronary anatomy. Risks and benefits were explained to the patient. The patient understands and agrees. The patient denies any fever, chills, melena, hematochezia, hematemesis, hemoptysis. No history of GI symptoms such as irritable bowel syndrome or inflammatory bowel disease. No GI bleeding noted. PULMONARY HISTORY: The patient has a history of COPD obviously from tobacco use. Mild ____ at this time. She also has heavy calcification of the aortic anatomy. She probably has peripheral vascular disease as well. However, she is nondiabetic. History of no obesity of significance although she has lost significant amount of weight since the last visit. PHYSICAL EXAMINATION: VITAL SIGNS: Blood pressure is 128/84, pulse of 80, O2 saturation 96% on room air. HEENT: Pupils are reactive. Funduscopic exam is benign. Sclerae anicteric. Extraocular muscles are intact. CARDIOVASCULAR: Regular rate without S3, without S4. PMI is not displaced. ABDOMEN: Obese. Unable to appreciate organomegaly. Stool guaiac is negative. NEUROLOGICAL: The patient is intact. EXTREMITIES: Within normal limits, 1+ edema. 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 The patient is now to undergo coronary angiography. Further recommendations after the angiogram. Ulises Salmeron MD SA/CINDI/KIP TID: [id number] RECEIPT: [id number]
== END 2024-12-29 11:15 | disposition home or self-care (01) ==
LOC: CATH 06:56
PROVIDERS: ATTEND Internal Medicine Cardiovascular Disease
DX: R07.9 Chest pain, unspecified (principal); R79.1 Abnormal coagulation profile; I25.10 Atherosclerotic heart disease of native coronary artery without angina pectoris; J43.9 Emphysema, unspecified; F41.8 Other specified anxiety disorders; Z87.891 Personal history of nicotine dependence; Z88.0 Allergy status to penicillin; Z88.8 Allergy status to other drugs, medicaments and biological substances; Z80.8 Family history of malignant neoplasm of other organs or systems; Z82.49 Family history of ischemic heart disease and other diseases of the circulatory system; Z83.3 Family history of diabetes mellitus; Z84.0 Family history of diseases of the skin and subcutaneous tissue
CPT/HCPCS: 0523T; 36415; 80048; 85025; 85610; 85730; 92972; 92973; 93458; C1760; C1761; C1874; C1887; C1894; C9600; J0583; J1644; J2250; J3010; Q9967; 99152

== ENCOUNTER 2025-02-08 10:50 | Outpatient (CLI) | payer OTHER, MEDICAID | END 2025-02-08 17:00 | disposition home or self-care (01) | LOC: Rad HDHVI 10:50 | PROVIDERS: ATTEND Internal Medicine Cardiovascular Disease | DX: R07.89 Other chest pain (principal) | CPT/HCPCS: 93306 ==

== ENCOUNTER 2025-02-15 12:58 | Outpatient (CLI) | payer OTHER, MEDICAID ==
[~2025-02-15] VITALS: Ht 152.4 cm; Wt 56.2 kg
[2025-02-15] MEDS ORDERED: ADENOSINE 90 MG/30 ML INJ IV ONE (13:40)
[2025-02-15] MEDS ORDERED: ADENOSINE 47 MG in GIVE UN-DILUTED 0 ML IV ONE (13:45)
== END 2025-02-15 17:00 | disposition home or self-care (01) ==
LOC: Rad HDHVI 12:58
PROVIDERS: ATTEND Internal Medicine Cardiovascular Disease
DX: R07.89 Other chest pain (principal); R06.02 Shortness of breath; I10 Essential (primary) hypertension; E78.00 Pure hypercholesterolemia, unspecified; I25.10 Atherosclerotic heart disease of native coronary artery without angina pectoris; F17.210 Nicotine dependence, cigarettes, uncomplicated
CPT/HCPCS: 78452; A9500; J0153; 93017

== ENCOUNTER 2025-04-28 13:05 | Inpatient (IN) | payer MEDICARE, MEDICAID ==
[~2025-04-28] VITALS: Ht 152.4 cm; Wt 68.3 kg
--- NOTE | 2025-04-28 14:20 | ED.PDOC ---
HPI Comments 69-year-old female presents here with chest discomfort to her left chest which radiates to her left armpit and left arm. She states she wakes up in the morning with these type of pains including this morning. She states it has been going on for the last 3 weeks but worse over the last few days. Patient has a history of lupus. She does report mild rhinorrhea and cough. No recent fever or chills. Patient took nitroglycerin at home with no relief. Chief Complaint: Chest Pain Time Seen by MD: 15:00 Primary Care Provider: UNKNOWN Reviewed Notes: Nurses Notes, Medications, Allergies Allergies: Coded Allergies: Ketorolac (Verified Allergy, Severe, SOB, GENERAL ITCHING, 12/26/24) HAS REACTION TO 60mg DOSE, BUT NO REACTION TO 30mg DOSE Penicillins (Verified Allergy, Intermediate, ITCHING AND SWELLING "EVERYWHERE", 12/26/24) Home Meds Reported Medications Atorvastatin Calcium (ATORVASTATIN CALCIUM) 20 Mg Tab, 1 TAB PO QPM for HIGH CHOLESTEROL 12/26/24 Ascorbic Acid (VITAMIN C TABLET) 500 Mg Tb, 1 TAB PO DAILY for SUPPLEMENT 12/26/24 Timolol Maleate (Timolol Maleate Ophthalmi) 0.5 % Shoshana, 1 DROP EACHEYE BID for GLAUCOMA 12/26/24 Levothyroxine Sodium (Levothyroxine Sodium) 25 Mcg Tab, 1 TAB PO QAM for HYPOTHYROIDISM 12/26/24 Aspirin (Aspirin) 81 Mg Tab, 1 TAB PO DAILY for HEART ATTACK PREVENTION 12/26/24 Albuterol Sulfate (Albuterol Sulfate Hfa) 108 Mcg/Act Aer, 2 PUFF IN QID PRN for SHORTNESS OF BREATH 12/26/24 Ergocalciferol (VITAMIN D2) 2,000 Unit Tab, 1 TAB PO QWEEKLY for SUPPLEMENT 12/26/24 Ipratropium-Albuterol (Ipratropium [place]/Albut) 1 Shoshana Shoshana, 1 UNIT NEB HS PRN for SHORTNESS OF BREATH 12/26/24 Plmapyxfags-Kreysqdwomjw-Ehtkn (Trelegy Ellipta 100-62.5-25 Mcg/INH) 1 Aer Aer, 1 PUFF IN DAILY PRN for SHORTNESS OF BREATH 12/26/24 Meloxicam (Meloxicam) 7.5 Mg Tab, 1 TAB PO DAILY for ARTHRITIS 12/26/24 Hydrocodone-Acetaminophen (Hydrocodone Bitartrate/AC 10-325 mg) 1 Tab Tab, 1 TAB PO TID PRN for PAIN SCALE 7 THRU 10 12/26/24 Megestrol Acetate (Megestrol Acetate) 40 Mg Tab, 1 TAB PO BID for WEIGHT GAIN 12/26/24 Nitroglycerin (Nitrostat) 0.4 Mg Sub, 1 TAB SL DIRECTED PRN for FOR CHEST PAIN 12/26/24 Prednisone (Prednisone) 5 Mg Tab, 1 TAB PO DAILY for ARTHRITIS 12/26/24 Omeprazole Magnesium (Omeprazole) 20 Mg Tab, 1 TAB PO DAILY for GERD 12/26/24 Lxdqcdqfzx-Dybhdeoayoyuo-Counu (FIORICET TABLET) 1 Tab Tb, 1 TAB PO TID PRN for PAIN SCALE 7 THRU 10 12/26/24 Diclofenac Sodium (Topical) (Arthritis Pain Reliever) 1 % Gel, 1 % TOP DIRECTED PRN for MODERATE PAIN (4-6 PAIN SCALE) 12/26/24 Metoprolol Tartrate (LOPRESSOR TABLET) 50 Mg Tb, 1 TAB PO BID for HYPERTENSION 12/26/24 Brimonidine Tartrate (Brimonidine Tartrate) 0.2 % Shoshana, 1 DROP EACHEYE BID for GLAUCOMA 07/27/14 Trazodone Hcl (Trazodone Hcl) 50 Mg Tab, 1 TAB PO HS for INSOMNIA 07/27/14 Latanoprost (LATANOPROST) 0.005 % Shoshana, 1 DROP EACHEYE BID for GLAUCOMA 07/27/14 Information Source: Patient Mode of Arrival: Ambulatory Severity: Moderate Timing: Weeks Duration: Since onset Prehospital treatment: None Location: Chest (L), Substernal Radiation: Shoulder (L), Arm (L) Quality: Sharp Onset: At Rest Cardiac Risk Factors: HTN PE Risk Factors: None History of: None Associated Signs and Symptoms: None Past Medical History PAST MEDICAL HISTORY: Anemia, Arthritis, Cancer, CHF, COPD, Depression, HTN Past Medical History (Other): Lupus Surgical History: Denies all surgeries IMPREGNATOR OPERATOR History: No Pertinent IMPREGNATOR OPERATOR History Family History Family History: Reviewed,noncontributory to illness, Unknown Social History Smoker: Less Than 1 Pack/Day Alcohol: Rarely Drugs: Denies Drug Use Lives In: Home Constitutional: denies: chills, diaphoresis, fatigue, fever, malaise, sweats, weakness, others EENTM: denies: blurred vision, double vision, ear bleeding, ear discharge, ear drainage, ear pain, ear ringing, eye pain, eye redness, hearing loss, mouth pain, mouth swelling, nasal discharge, nose bleeding, nose congestion, nose pain, photophobia, tearing, throat pain, throat swelling, voice changes, others Respiratory: denies: cough, hemoptysis, orthopnea, SOB at rest, shortness of breath, SOB with excertion, stridor, wheezing, others Cardiovascular: reports: chest pain, left arm pain; denies: dizzy spells, diaphoresis, Dyspnea on exertion, edema, irregular heart beat, lightheadedness, palpitations, PND, syncope, others Gastrointestinal: denies: abdomen distended, abdominal pain, blood streaked bowels, constipated, diarrhea, dysphagia, difficulty swallowing, hematemesis, melena, nausea, poor appetite, poor fluid intake, rectal bleeding, rectal pain, vomiting, others Genitourinary: denies: abnormal vagina bleeding, burning, dyspareunia, dysuria, flank pain, frequency, hematuria, incontinence, pain, , vagina discharg e, urgency, others Neurological: denies: dizziness, fainting, headache, left sided numbness, left sided weakness, numbness, paresthesia, pre-existing deficit, right sided numbness, right sided weakness, seizure, speech problems, tingling, tremors, weakness, others Musculoskeletal: denies: back pain, gout, joint pain, joint swelling, muscle pain, muscle stiffness, neck pain, others Integumetry: denies: bruises, change in color, change in hair/nails, dryness, laceration, lesions, lumps, rash, wounds, others Allergic/Immunocompromised: denies: Difficulty Healing, Frequent Infections, Hives, Itching, others Hematologic/Lymphatic: denies: anemia, blood clots, easy bleeding, easy bruising, swollen glands, others Endocrine: denies: excessive hunger, excessive sweating, excessive thirst, excessive urination, flushing, intolerance to cold, intolerance to heat, unexplained weight gain, unexplained weight loss, others Psychiatric: denies: anxiety, bipolar disorder, depression, hopeless, panic d isorder, schizophrenia, sleepless, suicidal, others All Other Systems: Reviewed and Negative Physical Exam General Appearance: No Apparent Distress, Normal HEENT: Normal ENT Inspection, Pharynx Normal, TMs Normal Neck: Full Range of Motion, Non-Tender, Normal, Normal Inspection Respiratory: Chest Non-Tender, Lungs Clear, No Accessory Muscle Use, No Respiratory Distress, Normal Breath Sounds Cardiovascular: No Edema, No JVD, No Murmur, No Gallop, Normal Peripheral Pulses, Regular Rate/Rhythm Breast Exam: Deferred Gastrointestinal: No Organomegaly, Non Tender, No Pulsatile Mass, Normal Bowel Sounds, Soft Genitalia: Deferred Pelvic: Deferred Rectal: Deferred Extremities: No calf tenderness, Normal capillary refill, Normal inspection, Normal range of motion, Non-tender, No pedal edema Musculoskeletal : Apperance: Normal Neurologic: Alert, pe teacher II-XII nml as Tested, No Motor Deficits, Normal Affect, Normal Mood, No Sensory Deficits Cerebellar Function: Normal Reflexes: Normal Skin: Dry, Normal Color, Warm Lymphatic: No Adenopathy EKG EKG #1: Pulse Rate (adult): 94 [place]: Normal Cardiac Rhythm: NSR Block: None Hypertrophy: None ST: Normal Comments EKG 1. At 1:18 p.m., 94 rate sinus rhythm no significant ST changes EKG #2: Comments Rate of 73 sinus rhythm T-wave flattening in lateral leads. No other significant ST changes Was a procedure done? Was a procedure done?: No CP Differential Dx Differential Diagnosis: N/A Differential Diagnosis: N/A Differential Diagnosis: Angina, Aortic dissection, Chest Wall Pain, Pneumonia, Pneumothorax, Pulmonary Embolus X-Ray, Labs, Meds, VS Vital Signs Date Time Temp Pulse Resp B/P (MAP) Pulse Ox O2 Delivery O2 Flow Rate FiO2 04/28/25 15:02 04/28/25 14:11 73 04/28/25 13:18 94 04/28/25 13:09 98.0 102 20 149/71 96 98.0 Lab Test 04/28/25 16:23 04/28/25 14:38 04/28/25 13:33 Range/Units Troponin I High Sensitivity Pending 15 18 </=34 ng/L White Blood Count 13.5 H 4.4-10.8 10^3/uL Red Blood Count 3.73 L 4.0-5.20 10^6/uL Hemoglobin 10.4 L 12.2-16.2 g/dL Hematocrit 32.3 L 36.0-46.0 % Mean Corpuscular Volume 86.6 80.0-100.0 fL Mean Corpuscular Hemoglobin 27.9 L 28.0-32.0 pg Mean Corpuscular Hemoglobin Concent 32.2 32.0-36.0 g/dL Red Cell Distribution Width 15.2 H 11.8-14.3 % Platelet Count 448 140-450 10^3/uL Mean Platelet Volume 7.4 6.9-10.8 fL Neutrophils (%) (Auto) 62.5 37.0-80.0 % Lymphocytes (%) (Auto) 23.4 10.0-50.0 % Monocytes (%) (Auto) 8.6 0.0-12.0 % Eosinophils (%) (Auto) 4.8 0.0-7.0 % Basophils (%) (Auto) 0.7 0.0-2.0 % Neutrophils # (Auto) 8.4 1.6-8.6 10 ^3/uL Lymphocytes # (Auto) 3.1 0.4-5.4 10 ^3/uL Monocytes # (Auto) 1.2 0-1.3 10 ^3/uL Eosinophils # (Auto) 0.6 0-0.8 10 ^3/uL Basophils # (Auto) 0.1 0-0.2 10 ^3/uL Nucleated Red Blood Cells 0.1 % Sodium Level 146 H 136-145 mmol/L Potassium Level 3.6 3.5-5.1 mmol/L Chloride Level 117 H 98-107 mmol/L Carbon Dioxide Level 16 L 20-31 mmol/L Anion Gap 13 5-15 Blood Urea Nitrogen 17 9-23 mg/dL Creatinine 1.27 H 0.550-1.02 mg/dL Glomerular Filtration Rate Calc 45 >90 mL/min BUN/Creatinine Ratio 13.4 10.0-20.0 Serum Glucose 94 74-106 mg/dL Calcium Level 8.7 8.7-10.4 mg/dL [address] [address] Ph: [phone] DIAGNOSTIC IMAGING Diagnostic Imaging Report : [id number] Signed PATIENT: JAIRO RAY ACCT: [id number] UNIT: [id number] : 1955 LOC: ER ROOM / BED: / AGE / SEX: 69 / F ADM STATUS: REG ER SERVICE 19 ORDERING PHYSICIAN: RAFAEL RAMIRES MD PROCEDURE(s): CXR2 - CHEST TWO VIEWS ROUTINE REASON: Rule out pneumonia ORDER NUMBER(s): [id number], ACCESSION NUMBER(s): [id number] XY CHEST TWO VIEWS ROUTINE, HISTORY: Rule out pneumonia COMPARISON: XY CHEST TWO VIEWS ROUTINE on DOS: 12/26/24, XY CHEST XRAY 1 VIEW on DOS: 10/26/24, XY CHEST XRAY 1 VIEW on DOS: 06/28/24 XY CHEST TWO VIEWS ROUTINE on DOS: 12/26/24, XY CHEST XRAY 1 VIEW on DOS: 10/26/24, XY CHEST XRAY 1 VIEW on DOS: 06/28/24 TECHNICAL DATA: 2 view of the chest was obtained. FINDINGS: Lines and tubes: None Cardiomediastinal silhouette: normal Pulmonary vasculature: normal Lung expansion: normal Lung airspace: normal Lung interstitium: normal Pleura: normal Pneumothorax: no Bones: Unremarkable Other: no IMPRESSION: No acute intrathoracic abnormality. ATED BY: EZEKIEL SPARROW MD DICTATED DATE/TIME: 04/28/251444 SIGNED BY: EZEKIEL SPARROW MD SIGNED DATE/TIME: 04/28/251444 CC: 69-year-old female presents here with chest discomfort with radiation to left arm. She has a known history of lupus. As well as multiple other comorbidities. At this time chest x-ray with no evidence of infection. Blood work does demonstrate leukocytosis of 13.5. She does report mild rhinorrhea and cough for the last 3 weeks. Troponin x2 are negative. EKG initially did not have any changes but 2nd 1 did have some mild T-wave flattening. Blood work demonstrates evidence of has been hypernatremia at 146 contacted for admission. hospitalist team has been a patient has a high-risk fo cardiac disease. Patient has been given aspirin in the ER.. and mild acute kidney injury. At this time hospitalist team has been contacted for admission. Ialso given her recent cough and leukocytosis I have started her on Rocephin and azithromycin IV. Time of 1ST Reevaluation: 15:30 Reevaluation 1ST: Unchanged Patient Education/Counseling: Diagnosis, Treatment, Prognosis Family Education/Counseling: No Family Present SEPSIS Sepsis Screen Date sepsis recognized/suspect: Apr 28, 2025 Time Sepsis recognized/suspect: 131 Recent Procedure: No On Antibiotic Therapy: No Respiratory Rate >20: No Heart Rate >90: Yes Temp<36 C (96.8 F) or >38.3 C: No SBP <90 or MAP <65 mmHG: No New Acute Mental Status Change: No Is the patient on CPAP, BIPAP,: No Physician Orders Electrocardigram (04/28/25 13:07) Electrocardigram (04/28/25 14:07) Electrocardigram (04/28/25 16:07) Troponin-I Hs (04/28/25 16:07) Chest Two Views Routine (04/28/25 14:20) Vital Signs Date Time Temp Pulse Resp B/P (MAP) Pulse Ox O2 Delivery O2 Flow Rate FiO2 04/28/25 15:02 04/28/25 14:11 73 04/28/25 13:18 94 04/28/25 13:09 98.0 102 20 149/71 96 98.0 Laboratory Tests Test 04/28/25 13:33 White Blood Count 13.5 10^3/uL (4.4-10.8) H Departure 1 Departure Time of Disposition: 16:34 Impression: Primary Impression: Chest pain Qualified Codes: R07.9 - Chest pain, unspecified Additional Impressions: Leukocytosis Qualified Codes: D72.829 - Elevated white blood cell count, unspecified Acute kidney injury Hypernatremia Disposition: ADMITTED INPATIENT Condition: Stable Critical Care Note Critical Care Time?: No Stability Stability form required: No Heart Score Heart Score: Heart Score Response (Comments) Value History Moderate Suspicious 1 EKG Repolarization Disturb 1 Age >65 2 Risk Factors 1 or 2 risk factors 1 Troponin Normal limit 0 Total 5 I personally scribed for RAFAEL RAMIRES MD ([email or web address]) on 04/28/25 at 15:02. Electronically submitted by Phil Abbott ([email or web address]). I personally scribed for ARFAEL RAMIRES MD ([email or web address]) on 04/28/25 at 16:29. Electronically submitted by Phil Abbott ([email or web address]). RAFAEL RAMIRES MD Apr 28, 2025 14:20
--- NOTE | 2025-04-28 14:47 | DVH ---
XY CHEST TWO VIEWS ROUTINE, HISTORY: Rule out pneumonia COMPARISON: XY CHEST TWO VIEWS ROUTINE on DOS: 12/26/24, XY CHEST XRAY 1 VIEW on DOS: 10/26/24, XY CHEST XRAY 1 VIEW on DOS: 06/28/24 XY CHEST TWO VIEWS ROUTINE on DOS: 12/26/24, XY CHEST XRAY 1 VIEW on DOS: 10/26/24, XY CHEST XRAY 1 VIEW on DOS: 06/28/24 TECHNICAL DATA: 2 view of the chest was obtained. FINDINGS: Lines and tubes: None Cardiomediastinal silhouette: normal Pulmonary vasculature: normal Lung expansion: normal Lung airspace: normal Lung interstitium: normal Pleura: normal Pneumothorax: no Bones: Unremarkable Other: no IMPRESSION: No acute intrathoracic abnormality.
[2025-04-28 15:40] LABS: Hematocrit 32.3 % (36.0-46.0); Hemoglobin 10.4 g/dL (12.2-16.2); Mean Corpuscular Hemoglobin 27.9 pg (28.0-32.0); Mean Corpuscular Volume 86.6 fL (80.0-100.0); Nucleated Red Blood Cells % 0.1 %; Potassium 3.6 mmol/L (3.5-5.1)
[2025-04-28 15:41] LABS: Anion Gap 13 (5-15); Calcium 8.7 mg/dL (8.7-10.4)
[2025-04-28 15:46] LABS: BUN/Creatinine Ratio 13.4 (10.0-20.0); Blood Urea Nitrogen 17 mg/dL (9-23); Glucose 94 mg/dL (74-106)
[2025-04-28 15:49] LABS: Carbon Dioxide 16 mmol/L (20-31); Chloride 117 mmol/L (98-107); Sodium 146 mmol/L (136-145)
[2025-04-28] MEDS ORDERED: MORPHINE SULFATE 4 MG/ML SYR/VIAL IV ONE (16:45)
[2025-04-28 17:39] LABS: Urine Protein, UAD 1+ (Negative)
--- NOTE | 2025-04-28 18:52 | ECG ---
[facility] Test Date: 2025-04-28 Test Time: 13:18:12 Pat Name: JAIRO RAY Department: ED Room: 0290T Gender: F [place] [employer]: nicci : 1955 Requested By: RAFAEL RAMIRES Order Number: [id number] Reading MD: Victor M Brannon Measurements Intervals [place] Rate: 94 P: 46 MI: 172 QRS: -19 QRSD: 77 T: 74 QT: 345 QTc: 432 Interpretive Statements Sinus rhythm LVH by voltage Inferior infarct, old Electronically Signed On 04-29-2025 20:38:11 PDT by Victor M Brannon Please click the below link to view image of tracing.
--- NOTE | 2025-04-28 18:53 | ECG ---
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
[2025-04-28] MEDS: HYDROmorphone HCL 2 MG/ML VL/or syr IV ONE (19:14)
[2025-04-28] MEDS: ONDANSETRON HCL 4 MG/2 ML VIAL IV ONE (19:15)
[2025-04-28] MEDS: AZITHROMYCIN 500MG/ 250ML 250 ML IV ONE (20:20)
[2025-04-28] MEDS ORDERED: ONDANSETRON HCL 4 MG/2 ML VIAL IV PRN (21:15)
[2025-04-28] MEDS ORDERED: hydrALAZINE HCL 20 MG/ML VL IV PRN (21:15)
[2025-04-28] MEDS ORDERED: ACETAMINOPHEN 325 MG TAB PO PRN (21:15)
--- NOTE | 2025-04-28 21:32 | DVHHP2 ---
History of Present Illness Reason for Visit: Chest pain History of Present Illness The patient is a 69 year old female with past medical history of anemia, arthritis, cancer, CHF, COPD, depression, lupus, and hypertension who presented to [facility] ED with complaint of chest pain. Patient reports she has been experiencing left-sided chest pain radiating to her left and P, left arm, rating 7/10 numeric scale, unrelieved with nitroglycerin at home, getting worse that prompted this visit. Patient was seen and evaluated in the ED, laboratory data shows WBC 13.5, hemoglobin 10.4, hematocrit 32.3, platelets 448, sodium 146, potassium 3.6, BUN 17, creatinine 1.27, GFR 45, glucose 94, calcium 8.7, troponin 18, blood pressure 144/75, heart rate 86, temperature 98.3 F, O2 saturation 96% on room air. Chest x-ray shows no acute intrathoracic abnormality. Please see medication orders section in the computer. On my assessment, patient denied chest pain at this moment, no headache, dizziness, diaphoresis, shortness of breaths, no diarrhea, nausea, vomiting, fever, chills. Patient was admitted for further evaluation and medical management. Past Medical History Anemia, Arthritis, Cancer, CHF, COPD, Depression, HTN, Lupus Past Surgical History Denies all surgeries Family History Reviewed, noncontributory to the management of this case. Past Social History The patient lives at home, smokes cigarettes less than 1 pack per day, denies alcohol or illicit drugs abuse. Review of Systems Constitutional: No: Fever, Chills, Sweats, Weakness, Malaise, Other Eyes: No: Pain, Vision change, Conjunctivae inflammation, Eyelid inflammation, Other, Redness ENT: No: Ear pain, Ear discharge, Nose pain, Nose discharge, Nose congestion, Mouth pain, Mouth swelling, Throat pain, Throat swelling, Other Respiratory: No: Cough, Dry, Shortness of breath, SOB with excertion, Wheezing, Hemoptysis, Pleuritic Pain, Sputum, Wheezing, Other Cardiovascular: Chest Pain, Other (Left arm pain); No: Palpitations, Orthopnea, Paroxysmal Noc. Dyspnea, Edema, Lt Headedness Gastrointestinal: No: Nausea, Vomiting, Abdominal Pain, Diarrhea, Constipation, Melena, Hematochezia, Other Genitourinary: No Dysuria, No Frequency, No Incontinence, No Hematuria, No Retention, No Other Musculoskeletal: No: other, neck pain, shoulder pain, arm pain, back pain, hand pain, leg pain, foot pain Skin: No: Rash, Lesions, Jaundice, Bruising, Other Neurological: No: Weakness, Numbness, Incoordination, Change in speech, Confusion, Seizures, Other Allergies: Coded Allergies: Ketorolac (Verified Allergy, Severe, SOB, GENERAL ITCHING, 12/26/24) HAS REACTION TO 60mg DOSE, BUT NO REACTION TO 30mg DOSE Penicillins (Verified Allergy, Intermediate, ITCHING AND SWELLING "EVERYWHERE", 12/26/24) Medications Current Medications Medications Dose Ordered Sig/Elie Route Start Time Stop Time Status Last Admin Dose Admin Aspirin 81 mg DAILY PO 04/29/25 10:00 UNV Levofloxacin/ Dextrose 100 ml @ 100 mls/hr DAILY IV 04/29/25 10:00 UNV Metoprolol Tartrate 25 mg BID PO 04/28/25 22:00 Hydralazine HCl 10 mg Q6HP PRN IV 04/28/25 21:15 Sodium Chloride 10 ml Q8HR IV 04/28/25 22:00 Acetaminophen/ Hydrocodone Bitart 1 tab Q4HP PRN PO 04/28/25 21:15 Ondansetron HCl 4 mg Q4HP PRN IV 04/28/25 21:15 Docusate Sodium 100 mg BIDPRN PRN PO 04/28/25 21:15 Acetaminophen 650 mg Q6HP PRN PO 04/28/25 21:15 Atorvastatin Calcium 20 mg HS PO 04/28/25 22:00 Exam Vital Signs Vital Signs Date Time Temp Pulse Resp B/P (MAP) Pulse Ox O2 Delivery O2 Flow Rate FiO2 04/28/25 19:44 86 15 144/75 04/28/25 18:30 98.3 96 98.3 General Appearance: Alert, Oriented X3, Cooperative, No acute distress HEENT: Atraumatic, PERRLA, EOMI, Mucous membr. moist/pink Respiratory: Normal air movement Cardiovascular: Regular rate, Normal S1, Normal S2, No murmurs Abdominal: Normal bowel sounds, Soft, No tenderness, No hepatospenomegaly, No masses Extremities: No clubbing, No cyanosis, No edema, Normal pulses, No tenderness/swelling Skin: No rashes, No breakdown, No significant lesion Neuro: Normal speech, Normal tone, Sensation intact, Cranial nerves 3-12 NL, Reflexes 2+, Other (Generalized weakness) Psych/Mental Status: Mental status NL, Mood NL Labs/Xrays Labs Test 04/28/25 16:51 04/28/25 16:23 04/28/25 13:33 Range/Units Urine Color Light-yellow Yellow Urine Clarity Clear Clear Urine pH 6.5 5.0-9.0 Urine Specific [place] 1.029 1.001-1.035 Urine Protein 1+ H Negative Urine Ketones Negative Negative Urine Blood Negative Negative /uL Urine Nitrite Negative Negative Urine Bilirubin Negative Negative Urine Urobilinogen Normal Negative mg/dL Urine Leukocyte Esterase Negative Negative /uL Urine RBC 1 0 - 4 /hpf Urine Microscopic WBC 2 0-5 /HPF Urine Squamous Epithelial Cells Few <5 /hpf Urine Bacteria None seen None Seen /hpf Urine Glucose Normal Normal mg/dL Troponin I High Sensitivity 16 </=34 ng/L White Blood Count 13.5 H 4.4-10.8 10^3/uL Red Blood Count 3.73 L 4.0-5.20 10^6/uL Hemoglobin 10.4 L 12.2-16.2 g/dL Hematocrit 32.3 L 36.0-46.0 % Mean Corpuscular Volume 86.6 80.0-100.0 fL Mean Corpuscular Hemoglobin 27.9 L 28.0-32.0 pg Mean Corpuscular Hemoglobin Concent 32.2 32.0-36.0 g/dL Red Cell Distribution Width 15.2 H 11.8-14.3 % Platelet Count 448 140-450 10^3/uL Mean Platelet Volume 7.4 6.9-10.8 fL Neutrophils (%) (Auto) 62.5 37.0-80.0 % Lymphocytes (%) (Auto) 23.4 10.0-50.0 % Monocytes (%) (Auto) 8.6 0.0-12.0 % Eosinophils (%) (Auto) 4.8 0.0-7.0 % Basophils (%) (Auto) 0.7 0.0-2.0 % Neutrophils # (Auto) 8.4 1.6-8.6 10 ^3/uL Lymphocytes # (Auto) 3.1 0.4-5.4 10 ^3/uL Monocytes # (Auto) 1.2 0-1.3 10 ^3/uL Eosinophils # (Auto) 0.6 0-0.8 10 ^3/uL Basophils # (Auto) 0.1 0-0.2 10 ^3/uL Nucleated Red Blood Cells 0.1 % Sodium Level 146 H 136-145 mmol/L Potassium Level 3.6 3.5-5.1 mmol/L Chloride Level 117 H 98-107 mmol/L Carbon Dioxide Level 16 L 20-31 mmol/L Anion Gap 13 5-15 Blood Urea Nitrogen 17 9-23 mg/dL Creatinine 1.27 H 0.550-1.02 mg/dL Glomerular Filtration Rate Calc 45 >90 mL/min BUN/Creatinine Ratio 13.4 10.0-20.0 Serum Glucose 94 74-106 mg/dL Calcium Level 8.7 8.7-10.4 mg/dL PATIENT: JAIRO RAY ACCT: [id number] UNIT: [id number] : 1955 LOC: ER ROOM / BED: / AGE / SEX: 69 / F ADM STATUS: REG ER SERVICE 1420 ORDERING PHYSICIAN: RAFAEL RAMIRES MD PROCEDURE(s): CXR2 - CHEST TWO VIEWS ROUTINE REASON: Rule out pneumonia ORDER NUMBER(s): [id number], ACCESSION NUMBER(s): [id number] XY CHEST TWO VIEWS ROUTINE, HISTORY: Rule out pneumonia COMPARISON: XY CHEST TWO VIEWS ROUTINE on DOS: 12/26/24, XY CHEST XRAY 1 VIEW on DOS: 10/26/24, XY CHEST XRAY 1 VIEW on DOS: 06/28/24 XY CHEST TWO VIEWS ROUTINE on DOS: 12/26/24, XY CHEST XRAY 1 VIEW on DOS: 10/26/24, XY CHEST XRAY 1 VIEW on DOS: 06/28/24 TECHNICAL DATA: 2 view of the chest was obtained. FINDINGS: Lines and tubes: None Cardiomediastinal silhouette: normal Pulmonary vasculature: normal Lung expansion: normal Lung airspace: normal Lung interstitium: normal Pleura: normal Pneumothorax: no Bones: Unremarkable Other: no IMPRESSION: No acute intrathoracic abnormality. SEPSIS Sepsis Screen Date sepsis recognized/suspect: Apr 28, 2025 Time Sepsis recognized/suspect: 1310 Recent Procedure: No On Antibiotic Therapy: No Respiratory Rate >20: No Heart Rate >90: Yes Temp<36 C (96.8 F) or >38.3 C: No SBP <90 or MAP <65 mmHG: No New Acute Mental Status Change: No Is the patient on CPAP, BIPAP,: No Physician Orders Chest Two Views Routine (04/28/25 14:20) Blood Culture (04/28/25 16:36) Aspirin Tablet (04/29/25 10:00) Levofloxacin 500mg (Levaquin 500mg/ 100m (04/29/25 10:00) Metoprolol Tartrate Tablet (Lopressor Ta (04/28/25 22:00) Hydralazine Injection (Apresoline Inject (04/28/25 21:15) Allergies (04/28/25 21:08) Code Status (04/28/25 21:08) Sodium Chloride Lock (Saline Lock Ns) (04/28/25 22:00) Oxygen Per Hour (04/28/25 21:08) Hydrocodone-Acet 5/325mg Tab (Hinckley 5/32 (04/28/25 21:15) Ondansetron Hcl (Zofran) (04/28/25 21:15) Docusate Sodium Capsule (Colace Capsule) (04/28/25 21:15) Complete Blood Count (04/29/25 04:00) Comprehensive Metabolic Panel (04/29/25 04:00) Cardiac Diet-2gna,Lofat,Lochol (04/29/25 Breakfast) Condition: Serious (04/28/25 21:08) Acetaminophen Tablet (Tylenol Tablet) (04/28/25 21:15) Bedrest With Bathroom Privileg (04/28/25 21:08) Sequential Compression Device (04/28/25 ) Atorvastatin (Lipitor) (04/28/25 22:00) Vital Signs Date Time Temp Pulse Resp B/P (MAP) Pulse Ox O2 Delivery O2 Flow Rate FiO2 04/28/25 19:44 86 15 144/75 04/28/25 19:14 89 16 126/75 04/28/25 18:30 98.3 93 20 133/72 (92) 96 98.3 04/28/25 16:40 98.6 93 16 130/73 (92) 96 98.6 04/28/25 15:02 04/28/25 14:11 73 Laboratory Tests Test 04/28/25 13:33 White Blood Count 13.5 10^3/uL (4.4-10.8) H Medications Medications Dose Ordered Sig/Elie Route Start Time Stop Time Status Last Admin Dose Admin Azithromycin 250 ml @ 125 mls/hr ONCE ONCE IV 04/28/25 16:45 04/28/25 18:44 DC 04/28/25 20:20 125 MLS/HR Ceftriaxone Sodium 50 ml @ 100 mls/hr ONCE ONCE IV 04/28/25 16:45 04/28/25 17:14 DC 04/28/25 19:13 100 MLS/HR Hydromorphone HCl 0.5 mg ONCE ONCE IV 04/28/25 18:00 04/28/25 18:01 DC 04/28/25 19:14 0.5 MG Ondansetron HCl 4 mg ONCE ONCE IV 04/28/25 16:45 04/28/25 16:46 DC 04/28/25 19:15 4 MG Assessment/Plan Assessment/Plan Chest pain Chest pain, unspecified Hypernatremia Leukocytosis, unspecified Acute kidney injury Plan 1. Admit to telemetry unit 2. Breathing treatment 3. Pain control management 4. Management of fluids and electrolytes 5. Consultation for hospitalist 6. Diagnostic tests chest x-ray 7. DVT prophylaxis-on Eliquis 8. Repeat labs CBC, CMP in a.m. 9. Continue with current medical management 10. Treatment plan discussed with patient and RN. Patient verbalized understanding. Plan discussed with: Patient, Other (RN) My Orders Orders - FABY CAVANAUGH DNP Procedure Category Date Status Time Aspirin Tablet PHA 04/29/25 Logged 10:00 Levofloxacin 500mg PHA 04/29/25 Logged (Levaquin 500mg/ 100m 10:00 Metoprolol Tartrate PHA 04/28/25 In Process Tablet (Lopressor Ta 22:00 Hydralazine Injection PHA 04/28/25 In Process (Apresoline Inject 21:15 Allergies HOLLY 04/28/25 In Process 21:08 Code Status CODE 04/28/25 Transmitted 21:08 Sodium Chloride Lock PHA 04/28/25 In Process (Saline Lock Ns) 22:00 Oxygen Per Hour RT 04/28/25 Transmitted 21:08 Hydrocodone-Acet PHA 04/28/25 In Process 5/325mg Tab (Hinckley 21:15 Ondansetron Hcl PHA 04/28/25 Logged (Zofran) 21:15 Docusate Sodium PHA 04/28/25 In Process Capsule (Colace 21:15 Complete Blood Count LAB 04/29/25 Verified 04:00 Comprehensive LAB 04/29/25 Verified Metabolic Panel 04:00 Cardiac DIET 04/29/25 Transmitted Diet-2gna,Lofat,Lochol Breakfast Condition: Serious HOLLY 04/28/25 In Process 21:08 Acetaminophen Tablet PHA 04/28/25 In Process (Tylenol Tablet) 21:15 Bedrest With Bathroom HOLLY 04/28/25 In Process Privileg 21:08 Sequential HOLLY 04/28/25 In Process Compression Device Atorvastatin (Lipitor) PHA 04/28/25 In Process 22:00 Problem List: (1) Chest pain (2) Chest pain, unspecified (3) Hypernatremia (4) Leukocytosis, unspecified (5) Acute kidney injury Date of Service: Apr 28, 2025 Billing Provider: FABY CAVANAUGH DNP Common Visit Codes: [id number] INP/OBS CARE (HIGH) FABY CAVANAUGH DNP Apr 28, 2025 21:32
[2025-04-28] MEDS ORDERED: MORPHINE SULFATE INJ 2 MG/ml SYRG IV PRN (21:45)
[2025-04-28] MEDS: METOPROLOL TARTRATE 25 MG TAB PO SCH (22:20)
[2025-04-28] MEDS: ATORVASTATIN 20 MG TAB PO SCH (22:21)
[2025-04-28] MEDS: SODIUM CHLOR 0.9% PF (SALINE LOCK) 10ML VIAL/SYR IV SCH (22:21)
[2025-04-28] MEDS: HYDROcodone-ACET 5/325MG TAB PO PRN (22:21)
[2025-04-28] MEDS: NITROGLYCERIN 0.4 MG SL TAB SL PRN (22:44)
[2025-04-29] VITALS (9 sets, daily range): BP systolic 103–144; BP diastolic 54–82; PULSE 66–77; RESP 16–18; TEMP 97.9–99.3; O2SAT 96–100
[2025-04-29] MEDS: diphenhydrAMINE HCL 50 MG/1 ML VL IV PRN (01:06)
[2025-04-29 06:40] LABS: Hemoglobin 10.8 g/dL (12.2-16.2)
[2025-04-29 06:43] LABS: Hematocrit 33.3 % (36.0-46.0); Mean Corpuscular Hemoglobin 28.4 pg (28.0-32.0); Mean Corpuscular Volume 87.6 fL (80.0-100.0); Nucleated Red Blood Cells % 0.1 %
[2025-04-29 07:06] LABS: Anion Gap 11 (5-15); BUN/Creatinine Ratio 13.0 (10.0-20.0); Blood Urea Nitrogen 15 mg/dL (9-23); Calcium 8.7 mg/dL (8.7-10.4); Glucose 84 mg/dL (74-106); Potassium 3.8 mmol/L (3.5-5.1); Sodium 143 mmol/L (136-145); Total Protein 6.8 g/dL (5.7-8.2)
[2025-04-29 07:07] LABS: Albumin 4.3 g/dL (3.2-4.8)
[2025-04-29 07:08] LABS: Alanine Aminotransferase < 9 U/L (7-40); Alkaline Phosphatase 135 U/L (46-116); Bilirubin, Total 0.2 mg/dL (0.2-1.0); Carbon Dioxide 18 mmol/L (20-31); Chloride 114 mmol/L (98-107)
[2025-04-29] MEDS ORDERED: PHEN1CAP38 PO (11:02)
[2025-04-29] MEDS ORDERED: GABA-339 PO (11:02)
[2025-04-29] MEDS ORDERED: METO25TA5 PO (11:02)
[2025-04-29] MEDS: HYDROcodone-ACET 10/325MG TAB PO PRN (12:43)
[2025-04-29] MEDS ORDERED: IPRATROPIUM NEB PRN (15:00)
[2025-04-29] MEDS ORDERED: ERGOCALCIFEROL PO SCH (15:00)
[2025-04-29] MEDS ORDERED: BUTALBITAL ACETAMINOPHEN CAFFE PO PRN (15:00)
[2025-04-29] MEDS ORDERED: ALBUTEROL NEB PRN (15:00)
--- NOTE | 2025-04-29 15:24 | DVHPN2 ---
Subjective The patient is seen and examined at bedside. No complaint today. Reviewed: Care Plan, H&P, Labs, Medications, Previous Orders Changes from previous H/P or p: No Changes Objective Vitals Vital Signs Date Time Temp Pulse Resp B/P (MAP) Pulse Ox O2 Delivery O2 Flow Rate FiO2 04/29/25 13:00 99.3 75 18 103/54 (70) 98 99.3 04/28/25 19:00 Room Air* 0 21 Intake/Output Intake and Output 04/29/25 07:00 Intake Total 420 ml Balance 420 ml Intake Oral 120 ml IV Total 300 ml General Appearance: Alert, Oriented X3, Cooperative HEENT: Atraumatic, PERRLA, EOMI, Mucous membr. moist/pink Neck: Supple Lungs: Clear to auscultation, Normal air movement Cardiovascular: Regular rate, Normal S1, Normal S2, No murmurs, Gallops, Rubs Abdomen: Normal bowel sounds, Soft, No tenderness Neuro: Cranial nerves 3-12 NL Psych/Mental Status: Mental status NL Medications Current Medications Medications Dose Ordered Sig/Elie Route Start Time Stop Time Status Last Admin Dose Admin Aspirin 81 mg DAILY PO 04/29/25 10:00 Levofloxacin/ Dextrose 100 ml @ 100 mls/hr DAILY IV 04/29/25 10:00 04/29/25 10:26 100 MLS/HR Metoprolol Tartrate 25 mg BID PO 04/28/25 22:00 04/29/25 10:25 25 MG Hydralazine HCl 10 mg Q6HP PRN IV 04/28/25 21:15 Sodium Chloride 10 ml Q8HR IV 04/28/25 22:00 04/29/25 14:01 10 ML Ondansetron HCl 4 mg Q4HP PRN IV 04/28/25 21:15 Docusate Sodium 100 mg BIDPRN PRN PO 04/28/25 21:15 Acetaminophen 650 mg Q6HP PRN PO 04/28/25 21:15 Atorvastatin Calcium 20 mg HS PO 04/28/25 22:00 04/28/25 22:21 20 MG Nitroglycerin 0.4 mg Q5MINP PRN SL 04/28/25 21:45 04/28/25 22:44 0.4 MG Morphine Sulfate 2 mg Q30M PRN IV 04/28/25 21:45 Diphenhydramine HCl 25 mg Q4HP PRN IV 04/29/25 00:30 04/29/25 06:39 25 MG Acetaminophen/ Hydrocodone Bitart 1 tab Q4HP PRN PO 04/29/25 12:00 04/29/25 12:43 1 TAB Apixaban 5 mg BID PO 04/29/25 22:00 Ascorbic Acid 500 mg DAILY PO 04/30/25 10:00 Brimonidine Tartrate 1 drop BID EACHEYE 04/29/25 22:00 Acetaminophen/ Hydrocodone Bitart 1 tab TID PRN PO 04/29/25 15:00 Latanoprost 1 drop HS EACHEYE 04/29/25 22:00 Levothyroxine Sodium 25 mcg QAM PO 04/30/25 07:00 Phenytoin Sodium 100 mg BID PO 04/29/25 22:00 Prednisone 5 mg DAILY PO 04/30/25 10:00 Trazodone HCl 50 mg HS PO 04/29/25 22:00 Patient Own Medication 1 tab TID PRN PO 04/29/25 15:00 UNV Patient Own Medication 1 % DIRECTED PRN TOP 04/29/25 15:00 UNV Patient Own Medication 1 tab QWEEKLY PO 04/29/25 15:00 UNV Patient Own Medication 1 puff DAILY PRN IN 04/29/25 15:00 UNV Patient Own Medication 600 mg BID PO 04/29/25 22:00 UNV Patient Own Medication 1 unit HS PRN NEB 04/29/25 15:00 UNV Patient Own Medication 1 tab BID PO 04/29/25 22:00 UNV Patient Own Medication 1 tab DAILY PO 04/30/25 10:00 UNV Patient Own Medication 1 tab DAILY PO 04/30/25 10:00 UNV Timolol Maleate 1 drop BID EACHEYE 04/29/25 22:00 Laboratory Results Laboratory Tests 04/29/25 06:06 Chemistry Test 04/29/25 06:06 Albumin 4.3 g/dL (3.2-4.8) Calcium Level 8.7 mg/dL (8.7-10.4) Total Protein 6.8 g/dL (5.7-8.2) LFT Test 04/29/25 06:06 Alanine Aminotransferase (ALT) < 9 U/L (7-40) Alkaline Phosphatase 135 U/L (46-116) H Aspartate Amino Transferase (AST) 12 U/L (13-40) L Total Bilirubin 0.2 mg/dL (0.2-1.0) Urinalysis Test 04/28/25 16:51 Urine Color Light-yellow (Yellow) Urine Clarity Clear (Clear) Urine pH 6.5 (5.0-9.0) Urine Specific [place] 1.029 (1.001-1.035) Urine Protein 1+ (Negative) H Urine Ketones Negative (Negative) Urine Blood Negative /uL (Negative) Urine Nitrite Negative (Negative) Urine Bilirubin Negative (Negative) Urine Urobilinogen Normal mg/dL (Negative) Urine Leukocyte Esterase Negative /uL (Negative) Urine RBC 1 /hpf (0 - 4) Urine Microscopic WBC 2 /HPF (0-5) Urine Squamous Epithelial Cells Few /hpf (<5) Urine Bacteria None seen /hpf (None Seen) Urine Glucose Normal mg/dL (Normal) Labs and/or images reviewed: Labs reviewed by me Assessment/Plan Assessment/Plan Chest pain, unspecified Hypernatremia Leukocytosis, unspecified Acute kidney injury Plan Continuing current management. We will consult Cardiology. Continuing IV fluid. Pain controlled with IV Dilaudid. We will monitor kidney function This medical document was created using an electronic medical record system with [employer] direct computerized dictation system. Although this document has been carefully reviewed, there may still be some phonetic and typographical errors. These areas are purely typographical due to imperfections of the software programs, and do not reflect any compromise in the patient's medical care. Plan discussed with: Patient My Orders Orders - SAYDA SINGLETON MD Procedure Category Date Status Time Hydrocodone-Acet PHA 04/29/25 In Process 10/325mg Tab (Somers 12:00 Apixaban (Eliquis) PHA 04/29/25 In Process 22:00 Ascorbic Acid Tablet PHA 04/30/25 In Process (Vitamin C Tablet) 10:00 Brimonidine 0.2% Opth PHA 04/29/25 In Process Soln (Alphagan 0.2 22:00 Hydrocodone-Acet PHA 04/29/25 In Process 10/325mg Tab (Somers 15:00 Latanoprost (Xalatan) PHA 04/29/25 In Process 22:00 Levothyroxine Tablet PHA 04/30/25 In Process (Synthroid Tablet) 07:00 Phenytoin Capsule PHA 04/29/25 In Process (Dilantin Capsule) 22:00 Prednisone Tablet PHA 04/30/25 In Process 10:00 Trazodone Hcl PHA 04/29/25 In Process (Desyrel) 22:00 (NF) PHA 04/29/25 Logged Clscdtpxzj-Athwnxcmvkyny-Csyjl 15:00 (Nf) Diclofenac PHA 04/29/25 Logged Sodium (Topical) 15:00 (Nf) Ergocalciferol PHA 04/29/25 Logged (Vitamin D2) 15:00 (NF) PHA 04/29/25 Logged Vugeabkbgzy-Wlsmqdrgwhlp-Omeal 15:00 (Nf) Gabapentin PHA 04/29/25 Logged 22:00 (NF) PHA 04/29/25 Logged Ipratropium-Albuterol 15:00 (Nf) Megestrol Acetate PHA 04/29/25 Logged 22:00 (Nf) Meloxicam PHA 04/30/25 Logged 10:00 (Nf) Omeprazole PHA 04/30/25 Logged Magnesium (Omeprazole) 10:00 Timolol 0.5% Opth PHA 04/29/25 In Process Soln (Timoptic 0.5%) 22:00 Date of Service: Apr 29, 2025 Billing Provider: SAYDA SINGLETON MD Common Visit Codes: [id number] INP/OBS CARE(HIGH) SAYDA SINGLETON MD Apr 29, 2025 15:24
[2025-04-29] MEDS: UMECLIDINIUM IN SCH (16:30)
[2025-04-29] MEDS: FLUTICASONE FUROATE IN SCH (16:30)
[2025-04-29] MEDS: VILANTEROL IN SCH (16:30)
[2025-04-29] MEDS ORDERED: [UNRECOGNIZED DRUG - OTHER] TOP PRN (16:45)
[2025-04-29] MEDS ORDERED: DICLOFENAC TOP PRN (16:45)
[2025-04-29] MEDS: CYCLOBENZAPRINE HCL 10 MG TAB PO PRN (17:14)
[2025-04-29] MEDS: GABAPENTIN 300 MG CAP PO SCH (20:19)
[2025-04-29] MEDS: PHENYTOIN SODIUM 100 MG CAP PO SCH (20:20)
[2025-04-29] MEDS: APIXABAN 5 MG TAB PO SCH (20:20)
[2025-04-29] MEDS: TIMOLOL MAL 0.5% OPTH(EYE) SOL 5ML EACHEYE SCH (20:21)
[2025-04-29] MEDS: BRIMONIDINE 0.2% OPTH Soln 5ml EACHEYE SCH (20:21)
[2025-04-29] MEDS: ALBUTEROL SULF 2.5 MG/0.5ML(0.5%) NEB SOLN NEB PRN (20:56)
[2025-04-29] MEDS: IPRATROPIUM BROM 0.5 MG/2.5ML INH SOL NEB PRN (20:56)
[2025-04-29] MEDS: LATANOPROST 0.005 % OPTH(EYE) SOL 2.5ML EACHEYE SCH (22:00)
[2025-04-29] MEDS: MEGESTROL ACETATE 20 MG TAB PO SCH (22:00)
[2025-04-30] VITALS (11 sets, daily range): BP systolic 93–130; BP diastolic 51–73; PULSE 70–93; RESP 17–19; TEMP 97.4–98.9; O2SAT 92–99
[2025-04-30] MEDS: LEVOTHYROXINE SODIUM 25 MCG TAB PO SCH (06:17)
[2025-04-30] MEDS: PANTOPRAZOLE 40 MG TAB PO SCH (08:20)
[2025-04-30] MEDS: ASCORBIC ACID 500 MG TAB PO SCH (08:34)
--- NOTE | 2025-04-30 09:39 | ECG ---
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
--- NOTE | 2025-04-30 13:25 | DVHPN2 ---
Subjective The patient is seen and examined at bedside. Still have lots of chest pain. And complains of arm pain and numbness. Reviewed: Care Plan, H&P, Labs, Medications, Previous Orders Changes from previous H/P or p: No Changes Eyes: No Pain, No Vision change, No Conjunctivae inflammation, No Eyelid inflammation, No Other, No Redness ENT: No Ear pain, No Ear discharge, No Nose pain, No Nose discharge, No Nose congestion, No Mouth pain, No Mouth swelling, No Throat pain, No Throat swelling, No Other Cardiovascular: Chest Pain; No Palpitations, No Orthopnea, No Paroxysmal Noc. Dyspnea, No Edema, No Lt Headedness; Other (Left arm pain) Respiratory: No Cough, No Dry, No Shortness of breath, No SOB with excertion, No Wheezing, No Hemoptysis, No Pleuritic Pain, No Sputum, No Other Gastrointestinal: No Nausea, No Vomiting, No Abdominal Pain, No Diarrhea, No Constipation, No Melena, No Hematochezia, No Other Genitourinary: No Dysuria, No Frequency, No Incontinence, No Hematuria, No Retention, No Other Musculoskeletal: No other, No neck pain, No shoulder pain, No arm pain, No back pain, No hand pain, No leg pain, No foot pain Skin: No Rash, No Lesions, No Jaundice, No Bruising, No Other Objective Vitals Vital Signs Date Time Temp Pulse Resp B/P (MAP) Pulse Ox O2 Delivery O2 Flow Rate FiO2 04/30/25 12:35 97.4 82 19 110/57 (74) 97 97.4 04/30/25 08:00 Room Air* 0 21 Intake/Output Intake and Output 04/30/25 07:00 Intake Total 1000 ml Balance 1000 ml Intake Oral 1000 ml # Voids 4 General Appearance: Alert, Oriented X3, Cooperative HEENT: Atraumatic, PERRLA, EOMI, Mucous membr. moist/pink Neck: Supple Lungs: Clear to auscultation, Normal air movement Cardiovascular: Regular rate, Normal S1, Normal S2, No murmurs, Gallops, Rubs Abdomen: Normal bowel sounds, Soft, No tenderness Neuro: Cranial nerves 3-12 NL Psych/Mental Status: Mental status NL Medications Current Medications Medications Dose Ordered Sig/Elie Route Start Time Stop Time Status Last Admin Dose Admin Aspirin 81 mg DAILY PO 04/29/25 10:00 Metoprolol Tartrate 25 mg BID PO 04/28/25 22:00 04/30/25 08:37 25 MG Hydralazine HCl 10 mg Q6HP PRN IV 04/28/25 21:15 Sodium Chloride 10 ml Q8HR IV 04/28/25 22:00 04/30/25 06:17 10 ML Ondansetron HCl 4 mg Q4HP PRN IV 04/28/25 21:15 Docusate Sodium 100 mg BIDPRN PRN PO 04/28/25 21:15 Acetaminophen 650 mg Q6HP PRN PO 04/28/25 21:15 Atorvastatin Calcium 20 mg HS PO 04/28/25 22:00 04/29/25 20:20 20 MG Nitroglycerin 0.4 mg Q5MINP PRN SL 04/28/25 21:45 04/28/25 22:44 0.4 MG Morphine Sulfate 2 mg Q30M PRN IV 04/28/25 21:45 Diphenhydramine HCl 25 mg Q4HP PRN IV 04/29/25 00:30 04/29/25 18:21 25 MG Acetaminophen/ Hydrocodone Bitart 1 tab Q4HP PRN PO 04/29/25 12:00 04/30/25 08:35 1 TAB Apixaban 5 mg BID PO 04/29/25 22:00 04/30/25 08:34 5 MG Ascorbic Acid 500 mg DAILY PO 04/30/25 10:00 04/30/25 08:34 500 MG Brimonidine Tartrate 1 drop BID EACHEYE 04/29/25 22:00 04/30/25 08:32 1 DROP Acetaminophen/ Hydrocodone Bitart 1 tab TID PRN PO 04/29/25 15:00 Latanoprost 1 drop HS EACHEYE 04/29/25 22:00 Levothyroxine Sodium 25 mcg QAM PO 04/30/25 07:00 04/30/25 06:17 25 MCG Phenytoin Sodium 100 mg BID PO 04/29/25 22:00 04/30/25 10:04 100 MG Prednisone 5 mg DAILY PO 04/30/25 10:00 04/30/25 08:34 5 MG Trazodone HCl 50 mg HS PO 04/29/25 22:00 04/29/25 20:20 50 MG Patient Own Medication 1 tab TID PRN PO 04/29/25 15:00 Patient Own Medication 1 % DIRECTED PRN TOP 04/29/25 16:45 Patient Own Medication 1 tab QWEEKLY PO 04/29/25 15:00 Patient Own Medication 1 puff DAILY IN 04/29/25 16:30 Gabapentin 600 mg BID PO 04/29/25 22:00 04/30/25 08:34 600 MG Megestrol Acetate 40 mg BID PO 04/29/25 22:00 04/30/25 10:56 40 MG Patient Own Medication 1 tab DAILY PO 04/30/25 10:00 Pantoprazole Sodium 40 mg DAILY PO 04/30/25 10:00 04/30/25 08:20 40 MG Timolol Maleate 1 drop BID EACHEYE 04/29/25 22:00 04/30/25 08:33 1 DROP Cyclobenzaprine HCl 5 mg Q8HPRN PRN PO 04/29/25 16:00 04/30/25 12:49 5 MG Albuterol 2.5 mg HS PRN NEB 04/29/25 16:45 04/29/25 20:56 2.5 MG Ipratropium [place] 0.5 mg HS PRN NEB 04/29/25 16:45 04/29/25 20:56 0.5 MG Levofloxacin 50 ml @ 50 mls/hr DAILY IV 04/30/25 10:00 Laboratory Results Laboratory Tests 04/29/25 06:06 Urinalysis Test 04/28/25 16:51 Urine Color Light-yellow (Yellow) Urine Clarity Clear (Clear) Urine pH 6.5 (5.0-9.0) Urine Specific [place] 1.029 (1.001-1.035) Urine Protein 1+ (Negative) H Urine Ketones Negative (Negative) Urine Blood Negative /uL (Negative) Urine Nitrite Negative (Negative) Urine Bilirubin Negative (Negative) Urine Urobilinogen Normal mg/dL (Negative) Urine Leukocyte Esterase Negative /uL (Negative) Urine RBC 1 /hpf (0 - 4) Urine Microscopic WBC 2 /HPF (0-5) Urine Squamous Epithelial Cells Few /hpf (<5) Urine Bacteria None seen /hpf (None Seen) Urine Glucose Normal mg/dL (Normal) Microbiology Microbiology Date/Time Source Procedure Growth Status 04/28/25 17:20 Blood Blood Culture - Preliminary NO GROWTH AFTER 24 HOURS OF INCUBATION. Resulted Assessment/Plan Assessment/Plan Chest pain, unspecified Arm pain, weakness and numbness bilateral Hypernatremia Leukocytosis, unspecified Acute kidney injury Plan Continuing current management. We will consult Cardiology. Continuing IV fluid. Pain controlled with IV Dilaudid. We will monitor kidney function Will order CT cervical spine wo contrast. This medical document was created using an electronic medical record system with [employer] direct computerized dictation system. Although this document has been carefully reviewed, there may still be some phonetic and typographical errors. These areas are purely typographical due to imperfections of the software programs, and do not reflect any compromise in the patient's medical care. Plan discussed with: Patient My Orders Orders - SAYDA SINGLETON MD Procedure Category Date Status Time Ascorbic Acid Tablet PHA 04/30/25 In Process (Vitamin C Tablet) 10:00 Brimonidine 0.2% Opth PHA 04/29/25 In Process Soln (Alphagan 0.2 22:00 Hydrocodone-Acet PHA 04/29/25 In Process 10/325mg Tab ([place] 15:00 Latanoprost (Xalatan) PHA 04/29/25 In Process 22:00 Levothyroxine Tablet PHA 04/30/25 In Process (Synthroid Tablet) 07:00 Phenytoin Capsule PHA 04/29/25 In Process (Dilantin Capsule) 22:00 Prednisone Tablet PHA 04/30/25 In Process 10:00 Trazodone Hcl PHA 04/29/25 In Process (Desyrel) 22:00 (NF) PHA 04/29/25 In Process Rmvuvxtwyu-Sbzplqsstcnuy-Ylxyn 15:00 (Nf) Diclofenac PHA 04/29/25 In Process Sodium (Topical) 16:45 (Nf) Ergocalciferol PHA 04/29/25 In Process (Vitamin D2) 15:00 (NF) PHA 04/29/25 In Process Joyalwnrdgh-Asuwjmsdtvpe-Wotxc 16:30 Gabapentin Capsule PHA 04/29/25 In Process (Neurontin Capsule) 22:00 Megestrol Tablet PHA 04/29/25 In Process (Megace Tablet) 22:00 (Nf) Meloxicam PHA 04/30/25 In Process 10:00 Pantoprazole Tablet PHA 04/30/25 In Process (Protonix Tablet) 10:00 Timolol 0.5% Opth PHA 04/29/25 In Process Soln (Timoptic 0.5%) 22:00 Cyclobenzaprine PHA 04/29/25 In Process Tablet (Flexeril 16:00 Albuterol Medneb PHA 04/29/25 In Process (Ventolin Medneb) 16:45 Ipratropium Medneb PHA 04/29/25 In Process (Atrovent Medneb) 16:45 Date of Service: Apr 30, 2025 Billing Provider: SAYDA SINGLETON MD Common Visit Codes: [id number] INP/OBS CARE(HIGH) SAYDA SINGLETON MD Apr 30, 2025 13:25
[2025-04-30] MEDS: HYDROcodone-ACET 10/325MG TAB PO PRN (16:44)
[2025-04-30] MEDS: DOCUSATE SOD 100 MG CAP PO PRN (16:55)
[2025-05-01] VITALS (7 sets, daily range): BP systolic 97–134; BP diastolic 53–75; PULSE 68–97; RESP 16–20; TEMP 97.7–98.8; O2SAT 93–98
[2025-05-01 06:51] LABS: Hematocrit 32.0 % (36.0-46.0); Hemoglobin 10.5 g/dL (12.2-16.2); Mean Corpuscular Hemoglobin 28.2 pg (28.0-32.0); Mean Corpuscular Volume 85.8 fL (80.0-100.0); Nucleated Red Blood Cells % 0.0 %
[2025-05-01 06:59] LABS: Anion Gap 10 (5-15); Potassium 4.1 mmol/L (3.5-5.1)
[2025-05-01 07:00] LABS: Calcium 8.9 mg/dL (8.7-10.4)
[2025-05-01 07:05] LABS: BUN/Creatinine Ratio 13.7 (10.0-20.0); Blood Urea Nitrogen 17 mg/dL (9-23); Glucose 91 mg/dL (74-106)
[2025-05-01 07:06] LABS: Carbon Dioxide 20 mmol/L (20-31); Chloride 115 mmol/L (98-107); Creatine Kinase IFCC 57 U/L (34-145); Sodium 145 mmol/L (136-145)
--- NOTE | 2025-05-01 09:19 | DVH ---
EXAM: CT CERVICAL WITHOUT CONTRAST INDICATION: Weakness of arm EXAM DATE: 05/01/2025 08:18 AM COMPARISON: CT C-SPINE W on DOS: 06/19/23 TECHNIQUE: Multiple axial CT images of the cervical spine were obtained using bone algorithm. Sagitta l and coronal reformatting was done. Bone and soft tissue windows were reviewed. Radiation Dose Information: CT Dose: CTDI volume is 25.48 mGy. Dose-length product is 611.0 mGy*cm FINDINGS: The cervical alignment is intact. There is straightening of the cervical lordosis. No acute cervical spine fracture is identified. The vertebral body heights are intact. No suspicious osseous lesions ar e identified. Multilevel intervertebral disc space narrowing. No significant spinal or neural foraminal stenosis. There is no prevertebral soft tissue swelling. Lung apices are clear. IMPRESSION: 1. No acute fracture or subluxation. Multilevel cervical spondylosis.
--- NOTE | 2025-05-01 12:19 | DVHPN2 ---
Subjective The patient is seen and examined at bedside. Still have lots of chest pain. And complains of arm pain and numbness. Reviewed: Care Plan, H&P, Labs, Medications, Previous Orders Eyes: No Pain, No Vision change, No Conjunctivae inflammation, No Eyelid inflammation, No Other, No Redness ENT: No Ear pain, No Ear discharge, No Nose pain, No Nose discharge, No Nose congestion, No Mouth pain, No Mouth swelling, No Throat pain, No Throat swelling, No Other Cardiovascular: Chest Pain; No Palpitations, No Orthopnea, No Paroxysmal Noc. Dyspnea, No Edema, No Lt Headedness; Other (Left arm pain) Respiratory: No Cough, No Dry, No Shortness of breath, No SOB with excertion, No Wheezing, No Hemoptysis, No Pleuritic Pain, No Sputum, No Other Gastrointestinal: No Nausea, No Vomiting, No Abdominal Pain, No Diarrhea, No Constipation, No Melena, No Hematochezia, No Other Genitourinary: No Dysuria, No Frequency, No Incontinence, No Hematuria, No Retention, No Other Musculoskeletal: No other, No neck pain, No shoulder pain, No arm pain, No back pain, No hand pain, No leg pain, No foot pain Skin: No Rash, No Lesions, No Jaundice, No Bruising, No Other Objective Vitals Vital Signs Date Time Temp Pulse Resp B/P (MAP) Pulse Ox O2 Delivery O2 Flow Rate FiO2 05/01/25 11:20 77 118/67 05/01/25 10:00 96 Room Air* 0 21 05/01/25 09:00 98.8 17 98.8 Intake/Output Intake and Output 05/01/25 07:00 Intake Total 1860 ml Balance 1860 ml Intake Oral 1860 ml # Voids 5 General Appearance: Alert, Oriented X3, Cooperative HEENT: Atraumatic, PERRLA, EOMI, Mucous membr. moist/pink Neck: Supple Lungs: Clear to auscultation, Normal air movement Cardiovascular: Regular rate, Normal S1, Normal S2, No murmurs, Gallops, Rubs Abdomen: Normal bowel sounds, Soft, No tenderness Neuro: Cranial nerves 3-12 NL Psych/Mental Status: Mental status NL Medications Current Medications Medications Dose Ordered Sig/Elie Route Start Time Stop Time Status Last Admin Dose Admin Aspirin 81 mg DAILY PO 04/29/25 10:00 Metoprolol Tartrate 25 mg BID PO 04/28/25 22:00 05/01/25 10:20 25 MG Hydralazine HCl 10 mg Q6HP PRN IV 04/28/25 21:15 Sodium Chloride 10 ml Q8HR IV 04/28/25 22:00 05/01/25 06:00 10 ML Ondansetron HCl 4 mg Q4HP PRN IV 04/28/25 21:15 Docusate Sodium 100 mg BIDPRN PRN PO 04/28/25 21:15 04/30/25 16:55 100 MG Acetaminophen 650 mg Q6HP PRN PO 04/28/25 21:15 Atorvastatin Calcium 20 mg HS PO 04/28/25 22:00 04/30/25 22:44 20 MG Nitroglycerin 0.4 mg Q5MINP PRN SL 04/28/25 21:45 04/28/25 22:44 0.4 MG Morphine Sulfate 2 mg Q30M PRN IV 04/28/25 21:45 Diphenhydramine HCl 25 mg Q4HP PRN IV 04/29/25 00:30 04/30/25 20:25 25 MG Apixaban 5 mg BID PO 04/29/25 22:00 05/01/25 10:10 5 MG Ascorbic Acid 500 mg DAILY PO 04/30/25 10:00 05/01/25 10:11 500 MG Brimonidine Tartrate 1 drop BID EACHEYE 04/29/25 22:00 05/01/25 10:09 1 DROP Acetaminophen/ Hydrocodone Bitart 1 tab TID PRN PO 04/29/25 15:00 05/01/25 10:12 1 TAB Latanoprost 1 drop HS EACHEYE 04/29/25 22:00 Levothyroxine Sodium 25 mcg QAM PO 04/30/25 07:00 05/01/25 06:38 25 MCG Phenytoin Sodium 100 mg BID PO 04/29/25 22:00 05/01/25 10:10 100 MG Prednisone 5 mg DAILY PO 04/30/25 10:00 05/01/25 10:10 5 MG Trazodone HCl 50 mg HS PO 04/29/25 22:00 04/30/25 22:44 50 MG Patient Own Medication 1 tab TID PRN PO 04/29/25 15:00 Patient Own Medication 1 % DIRECTED PRN TOP 04/29/25 16:45 Patient Own Medication 1 tab QWEEKLY PO 04/29/25 15:00 Patient Own Medication 1 puff DAILY IN 04/29/25 16:30 Gabapentin 600 mg BID PO 04/29/25 22:00 05/01/25 10:11 600 MG Megestrol Acetate 40 mg BID PO 04/29/25 22:00 05/01/25 10:11 40 MG Patient Own Medication 1 tab DAILY PO 04/30/25 10:00 Pantoprazole Sodium 40 mg DAILY PO 04/30/25 10:00 05/01/25 10:11 40 MG Timolol Maleate 1 drop BID EACHEYE 04/29/25 22:00 05/01/25 10:08 1 DROP Cyclobenzaprine HCl 5 mg Q8HPRN PRN PO 04/29/25 16:00 05/01/25 06:41 5 MG Levofloxacin 50 ml @ 50 mls/hr DAILY IV 04/30/25 10:00 05/01/25 10:09 50 MLS/HR Sumatriptan Succinate 50 mg Q8HPRN PRN PO 04/30/25 17:30 05/01/25 10:11 50 MG Laboratory Results Laboratory Tests 05/01/25 05:35 Chemistry Test 05/01/25 05:35 Calcium Level 8.9 mg/dL (8.7-10.4) Urinalysis Test 04/28/25 16:51 Urine Color Light-yellow (Yellow) Urine Clarity Clear (Clear) Urine pH 6.5 (5.0-9.0) Urine Specific [place] 1.029 (1.001-1.035) Urine Protein 1+ (Negative) H Urine Ketones Negative (Negative) Urine Blood Negative /uL (Negative) Urine Nitrite Negative (Negative) Urine Bilirubin Negative (Negative) Urine Urobilinogen Normal mg/dL (Negative) Urine Leukocyte Esterase Negative /uL (Negative) Urine RBC 1 /hpf (0 - 4) Urine Microscopic WBC 2 /HPF (0-5) Urine Squamous Epithelial Cells Few /hpf (<5) Urine Bacteria None seen /hpf (None Seen) Urine Glucose Normal mg/dL (Normal) Microbiology Microbiology Date/Time Source Procedure Growth Status 04/28/25 17:20 Blood Blood Culture - Preliminary NO GROWTH AFTER 48 HOURS OF INCUBATION. Resulted Assessment/Plan Assessment/Plan Chest pain, unspecified Arm pain, weakness and numbness bilateral Hypernatremia Leukocytosis, unspecified Acute kidney injury Plan Continuing current management. We will consult Cardiology. Continuing IV fluid. Pain controlled with IV Dilaudid. We will monitor kidney function Will order CT cervical spine wo contrast. This medical document was created using an electronic medical record system with [employer] direct computerized dictation system. Although this document has been carefully reviewed, there may still be some phonetic and typographical errors. These areas are purely typographical due to imperfections of the software programs, and do not reflect any compromise in the patient's medical care. My Orders Orders - SAYDA SINGLETON MD Procedure Category Date Status Time Sumatriptan Succinate PHA 04/30/25 In Process Tablet (Imitrex Ta 17:30 Complete Blood Count LAB 05/02/25 Verified 05:00 Complete Blood Count LAB 05/03/25 Verified 05:00 Complete Blood Count LAB 05/04/25 Verified 05:00 Complete Blood Count LAB 05/05/25 Verified 05:00 Basic Metabolic Panel LAB 05/02/25 Verified 05:00 Basic Metabolic Panel LAB 05/03/25 Verified 05:00 Basic Metabolic Panel LAB 05/04/25 Verified 05:00 Basic Metabolic Panel LAB 05/05/25 Verified 05:[address] 05/01/25 Resulted Contrast 07:00 SAYDA SINGLETON MD May 01, 2025 12:19
--- NOTE | 2025-05-01 13:01 | DVHDS2 ---
Discharge Summary Date of Admission Apr 28, 2025 at 21:31 Date of Discharge: May 01, 2025 Admitting Diagnosis Chest pain, unspecified Arm pain, weakness and numbness bilateral Hypernatremia Leukocytosis, unspecified Acute kidney injury Labs/Diagnostic Data: Laboratory Results Test 05/01/25 05:35 04/29/25 06:06 04/28/25 16:51 04/28/25 16:23 White Blood Count 13.4 10^3/uL (4.4-10.8) Red Blood Count 3.73 10^6/uL (4.0-5.20) Hemoglobin 10.5 g/dL (12.2-16.2) Hematocrit 32.0 % (36.0-46.0) Mean Corpuscular Volume 85.8 fL (80.0-100.0) Mean Corpuscular Hemoglobin 28.2 pg (28.0-32.0) Mean Corpuscular Hemoglobin Concent 32.8 g/dL (32.0-36.0) Red Cell Distribution Width 14.5 % (11.8-14.3) Platelet Count 411 10^3/uL (140-450) Mean Platelet Volume 7.2 fL (6.9-10.8) Neutrophils (%) (Auto) 63.3 % (37.0-80.0) Lymphocytes (%) (Auto) 24.7 % (10.0-50.0) Monocytes (%) (Auto) 8.2 % (0.0-12.0) Eosinophils (%) (Auto) 3.4 % (0.0-7.0) Basophils (%) (Auto) 0.4 % (0.0-2.0) Neutrophils # (Auto) 8.5 10 ^3/uL (1.6-8.6) Lymphocytes # (Auto) 3.3 10 ^3/uL (0.4-5.4) Monocytes # (Auto) 1.1 10 ^3/uL (0-1.3) Eosinophils # (Auto) 0.5 10 ^3/uL (0-0.8) Basophils # (Auto) 0 10 ^3/uL (0-0.2) Nucleated Red Blood Cells 0.0 % Sodium Level 145 mmol/L (136-145) Potassium Level 4.1 mmol/L (3.5-5.1) Chloride Level 115 mmol/L (98-107) Carbon Dioxide Level 20 mmol/L (20-31) Anion Gap 10 (5-15) Blood Urea Nitrogen 17 mg/dL (9-23) Creatinine 1.24 mg/dL (0.550-1.02) Glomerular Filtration Rate Calc 47 mL/min (>90) BUN/Creatinine Ratio 13.7 (10.0-20.0) Serum Glucose 91 mg/dL (74-106) Calcium Level 8.9 mg/dL (8.7-10.4) Creatine Kinase 57 U/L (34-145) Total Bilirubin 0.2 mg/dL (0.2-1.0) Aspartate Amino Transferase (AST) 12 U/L (13-40) Alanine Aminotransferase (ALT) < 9 U/L (7-40) Alkaline Phosphatase 135 U/L (46-116) Total Protein 6.8 g/dL (5.7-8.2) Albumin 4.3 g/dL (3.2-4.8) Urine Color Light-yellow (Yellow) Urine Clarity Clear (Clear) Urine pH 6.5 (5.0-9.0) Urine Specific [place] 1.029 (1.001-1.035) Urine Protein 1+ (Negative) Urine Ketones Negative (Negative) Urine Blood Negative /uL (Negative) Urine Nitrite Negative (Negative) Urine Bilirubin Negative (Negative) Urine Urobilinogen Normal mg/dL (Negative) Urine Leukocyte Esterase Negative /uL (Negative) Urine RBC 1 /hpf (0 - 4) Urine Microscopic WBC 2 /HPF (0-5) Urine Squamous Epithelial Cells Few /hpf (<5) Urine Bacteria None seen /hpf (None Seen) Urine Glucose Normal mg/dL (Normal) Troponin I High Sensitivity 16 ng/L (</=34) Other Laboratory Tests 05/01/25 05:35 Brief Hx & Hospital Course: This is 69 years old female with past medical history of anemia, osteoarthritis, cancer, congestive heart failure, COPD, depression, SLE, hypertension come to emergency department because of severe chest pain. Patient said her chest pain is on the left-sided the chest. Radiating to the left arm. Chest pain unrelieved with nitroglycerin at home and get worse so she came to emergency department for further evaluation. The chest x-ray showed no acute process. EKG and troponin level remained normal. The patient complained of severe weakness and pain bilateral upper extremity and numbness of both hands. The patient subsequently had a CT cervical done showed no acute process. No stenosis. Residential [employer] [employer]per see the patient and recommend follow up as outpatient. I am going to discharge her home. Advised her to follow up with primary care physician 1-2 weeks. Activity as tolerated. Diet per home diet. Also noted during this hospitalization the patient complained of migraine headache and was given Imitrex. Her headache resolved and improved. Physical exam: HEENT: Normocephalic atraumatic pupils equal react to light and accommodation. Extraocular muscles intact, conjunctiva pink, oropharynx moist, no thrush, no exudate. Lymphatic: No lymphadenopathy Cardiovascular exam: S1, S2 was heard. No murmurs, rubs, gallops Lung: Clear on auscultation bilaterally, no wheeze, rale, rhonchi. GI: Abdominal soft, nondistended, nontenderness, positive bowel sounds. Extremity: No crepitus, cyanosis, edema. Pedal pulses present bilateral. Full range of motion. Skin: Normal turgor, no rash. Psych: Alert, oriented x3. Neurology: No focal deficits, cranial nerve II to XII grossly intact. This medical document was created using an electronic medical record system with [employer] direct computerized dictation system. Although this document has been carefully reviewed, there may still be some phonetic and typographical errors. These areas are purely typographical due to imperfections of the software programs, and do not reflect any compromise in the patient's medical care. 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 Medications: RESUME HOME MEDS Scheduled Ascorbic Acid (Vitamin C Tablet), 1 TAB PO DAILY, (Reported) Brimonidine Tartrate (Brimonidine Tartrate), 1 DROP EACHEYE BID, (Reported) Ergocalciferol (Vitamin D2), 1 TAB PO QWEEKLY, (Reported) Gabapentin (Gabapentin), 600 MG PO BID, (Reported) Latanoprost (Latanoprost), 1 DROP EACHEYE BID, (Reported) Levothyroxine Sodium (Levothyroxine Sodium), 1 TAB PO QAM, (Reported) Megestrol Acetate (Megestrol Acetate), 1 TAB PO BID, (Reported) Meloxicam (Meloxicam), 1 TAB PO DAILY, (Reported) Metoprolol Tartrate (Metoprolol Tartrate), 0.5 TAB PO BID, (Reported) Omeprazole Magnesium (Omeprazole), 1 TAB PO DAILY, (Reported) Phenytoin Sodium (Dilantin Capsule), 100 MG PO BID, (Reported) Prednisone (Prednisone), 1 TAB PO DAILY, (Reported) Timolol Maleate (Timolol Maleate Ophthalmi), 1 DROP EACHEYE BID, (Reported) Trazodone Hcl (Trazodone Hcl), 1 TAB PO HS, (Reported) Scheduled PRN Albuterol Sulfate (Albuterol Sulfate Hfa), 2 PUFF IN QID PRN for SHORTNESS OF BREATH, (Reported) Erkqxtnnyb-Cvswvztpvvfus-Fjqhe (Fioricet Tablet), 1 TAB PO TID PRN for PAIN SCALE 7 THRU 10, (Reported) Diclofenac Sodium (Topical) (Arthritis Pain Reliever), 1 % TOP DIRECTED PRN for MODERATE PAIN (4-6 PAIN SCALE), (Reported) Ocqafudupax-Edpjmurbhwgi-Mkmfc (Trelegy Ellipta 100-62.5-25 Mcg/INH), 1 PUFF IN DAILY PRN for SHORTNESS OF BREATH, (Reported) Hydrocodone-Acetaminophen (Hydrocodone Bitartrate/AC 10-325 mg), 1 TAB PO TID PRN for PAIN SCALE 7 THRU 10, (Reported) Ipratropium-Albuterol (Ipratropium [place]/Albut), 1 UNIT NEB HS PRN for SHORTNESS OF BREATH, (Reported) Nitroglycerin (Nitrostat), 1 TAB SL DIRECTED PRN for FOR CHEST PAIN, (Reported) Discontinued Medications Metoprolol Tartrate (Lopressor Tablet), 1 TAB PO BID, (Reported) Discontinued Reason: Prescription changed Discharge Statement: "Patient was advised to return to the ER or call 911 if any headaches, dizziness, shortness of breath, chest pain, abdominal pain, bleeding, fevers, or worsening of medical condition. Patient was counseled about treatment plan, medications, possible side effects, patientverbalized understanding. All questions were answered to the best of my ability. This discharge took greater then 30 minutes in planning, reviewing documentation, counseling the patient, and discussing with other team members." ASSESSMENT ASSESSMENT Assessment CHEST PAIN Date of Service: May 01, 2025 Billing Provider: SAYDA SINGLETON MD Common Visit Codes: [id number] DISCH DAY >30min SAYDA SINGLETON MD May 01, 2025 13:01
--- NOTE | 2025-05-01 14:13 | DVHPN2 ---
Progress Note - Dictate Date Seen: May 01, 2025 Medical Necessity Reason Pt with a Central, PICC or Fol: No Subjective PT WITH CHEST PAIN NEGATIVE TROPONIN CAD S/P PTCA STENT LAD 12/11 ECHO EF >55% PMH ORGANIC HD CAD S/P PTCA STENT LAD HTN COPD ANEMIA SLE GEOVANNA CANCER a vital signs Vital Sign Date Time Temp Pulse Resp B/P (MAP) Pulse Ox O2 Delivery O2 Flow Rate FiO2 05/01/25 13:00 98.3 68 16 134/72 (92) 97 98.3 05/01/25 10:00 Room Air* 0 21 Total Intake and Output 04/30/25 04/30/25 05/01/25 15:00 23:00 07:00 Intake Total 1560 ml 300 ml Balance 1560 ml 300 ml medications Current Medications Medications Dose Ordered Sig/Elie Route Start Time Stop Time Status Last Admin Dose Admin Aspirin 81 mg DAILY PO 04/29/25 10:00 Metoprolol Tartrate 25 mg BID PO 04/28/25 22:00 05/01/25 10:20 25 MG Hydralazine HCl 10 mg Q6HP PRN IV 04/28/25 21:15 Sodium Chloride 10 ml Q8HR IV 04/28/25 22:00 05/01/25 06:00 10 ML Ondansetron HCl 4 mg Q4HP PRN IV 04/28/25 21:15 Docusate Sodium 100 mg BIDPRN PRN PO 04/28/25 21:15 04/30/25 16:55 100 MG Acetaminophen 650 mg Q6HP PRN PO 04/28/25 21:15 Atorvastatin Calcium 20 mg HS PO 04/28/25 22:00 04/30/25 22:44 20 MG Nitroglycerin 0.4 mg Q5MINP PRN SL 04/28/25 21:45 04/28/25 22:44 0.4 MG Morphine Sulfate 2 mg Q30M PRN IV 04/28/25 21:45 Diphenhydramine HCl 25 mg Q4HP PRN IV 04/29/25 00:30 04/30/25 20:25 25 MG Apixaban 5 mg BID PO 04/29/25 22:00 05/01/25 10:10 5 MG Ascorbic Acid 500 mg DAILY PO 04/30/25 10:00 05/01/25 10:11 500 MG Brimonidine Tartrate 1 drop BID EACHEYE 04/29/25 22:00 05/01/25 10:09 1 DROP Acetaminophen/ Hydrocodone Bitart 1 tab TID PRN PO 04/29/25 15:00 05/01/25 10:12 1 TAB Latanoprost 1 drop HS EACHEYE 04/29/25 22:00 Levothyroxine Sodium 25 mcg QAM PO 04/30/25 07:00 05/01/25 06:38 25 MCG Phenytoin Sodium 100 mg BID PO 04/29/25 22:00 05/01/25 10:10 100 MG Prednisone 5 mg DAILY PO 04/30/25 10:00 05/01/25 10:10 5 MG Trazodone HCl 50 mg HS PO 04/29/25 22:00 04/30/25 22:44 50 MG Patient Own Medication 1 tab TID PRN PO 04/29/25 15:00 Patient Own Medication 1 % DIRECTED PRN TOP 04/29/25 16:45 Patient Own Medication 1 tab QWEEKLY PO 04/29/25 15:00 Patient Own Medication 1 puff DAILY IN 04/29/25 16:30 Gabapentin 600 mg BID PO 04/29/25 22:00 05/01/25 10:11 600 MG Megestrol Acetate 40 mg BID PO 04/29/25 22:00 05/01/25 10:11 40 MG Patient Own Medication 1 tab DAILY PO 04/30/25 10:00 Pantoprazole Sodium 40 mg DAILY PO 04/30/25 10:00 05/01/25 10:11 40 MG Timolol Maleate 1 drop BID EACHEYE 04/29/25 22:00 05/01/25 10:08 1 DROP Cyclobenzaprine HCl 5 mg Q8HPRN PRN PO 04/29/25 16:00 05/01/25 06:41 5 MG Levofloxacin 50 ml @ 50 mls/hr DAILY IV 04/30/25 10:00 05/01/25 10:09 50 MLS/HR Sumatriptan Succinate 50 mg Q8HPRN PRN PO 04/30/25 17:30 05/01/25 10:11 50 MG laboratory and microbiology Laboratory Tests 05/01/25 05:35 Test 05/01/25 05:35 Range/Units Serum Glucose 91 74-106 mg/dL Problem List CHEST PAIN NEGATIVE TROPONIN CAD S/P PTCA STENT LAD 12/11 ECHO EF >55% PMH ORGANIC HD CAD S/P PTCA STENT LAD HTN COPD ANEMIA SLE GEOVANNA CANCER a Assessment/Plan CARDIAC STATUS STABLE MAY DC PT OUTPT W/U Dietary Evaluation Review Comments: Cardiac Diet Educated pt on her diet regimen Follow up with nephrology and nutrition related lab values Expected Outcomes/Goals: gradual wt loss Plan discussed with: Patient RENITA JENKINS MD May 01, 2025 14:13
--- NOTE | 2025-05-01 16:28 | DVHPN2 ---
Progress Note - Dictate Date Seen: Apr 29, 2025 Medical Necessity Reason Pt with a Central, PICC or Fol: No Subjective PT WITH CHEST PAIN NEGATIVE TROPONIN CAD S/P PTCA STENT LAD 12/11 ECHO EF >55% PMH ORGANIC HD CAD S/P PTCA STENT LAD HTN COPD ANEMIA SLE GEOVANNA CANCER a vital signs Vital Sign Date Time Temp Pulse Resp B/P (MAP) Pulse Ox O2 Delivery O2 Flow Rate FiO2 05/01/25 14:31 97.8 77 20 96 05/01/25 13:00 134/72 (92) 05/01/25 10:00 Room Air* 0 21 Total Intake and Output 04/30/25 04/30/25 05/01/25 15:00 23:00 07:00 Intake Total 1560 ml 300 ml Balance 1560 ml 300 ml medications Current Medications Medications Dose Ordered Sig/Elie Route Start Time Stop Time Status Last Admin Dose Admin Aspirin 81 mg DAILY PO 04/29/25 10:00 Metoprolol Tartrate 25 mg BID PO 04/28/25 22:00 05/01/25 10:20 25 MG Hydralazine HCl 10 mg Q6HP PRN IV 04/28/25 21:15 Sodium Chloride 10 ml Q8HR IV 04/28/25 22:00 05/01/25 14:00 10 ML Ondansetron HCl 4 mg Q4HP PRN IV 04/28/25 21:15 Docusate Sodium 100 mg BIDPRN PRN PO 04/28/25 21:15 04/30/25 16:55 100 MG Acetaminophen 650 mg Q6HP PRN PO 04/28/25 21:15 Atorvastatin Calcium 20 mg HS PO 04/28/25 22:00 04/30/25 22:44 20 MG Nitroglycerin 0.4 mg Q5MINP PRN SL 04/28/25 21:45 04/28/25 22:44 0.4 MG Morphine Sulfate 2 mg Q30M PRN IV 04/28/25 21:45 Diphenhydramine HCl 25 mg Q4HP PRN IV 04/29/25 00:30 04/30/25 20:25 25 MG Apixaban 5 mg BID PO 04/29/25 22:00 05/01/25 10:10 5 MG Ascorbic Acid 500 mg DAILY PO 04/30/25 10:00 05/01/25 10:11 500 MG Brimonidine Tartrate 1 drop BID EACHEYE 04/29/25 22:00 05/01/25 10:09 1 DROP Acetaminophen/ Hydrocodone Bitart 1 tab TID PRN PO 04/29/25 15:00 05/01/25 10:12 1 TAB Latanoprost 1 drop HS EACHEYE 04/29/25 22:00 Levothyroxine Sodium 25 mcg QAM PO 04/30/25 07:00 05/01/25 06:38 25 MCG Phenytoin Sodium 100 mg BID PO 04/29/25 22:00 05/01/25 10:10 100 MG Prednisone 5 mg DAILY PO 04/30/25 10:00 05/01/25 10:10 5 MG Trazodone HCl 50 mg HS PO 04/29/25 22:00 04/30/25 22:44 50 MG Patient Own Medication 1 tab TID PRN PO 04/29/25 15:00 Patient Own Medication 1 % DIRECTED PRN TOP 04/29/25 16:45 Patient Own Medication 1 tab QWEEKLY PO 04/29/25 15:00 Patient Own Medication 1 puff DAILY IN 04/29/25 16:30 Gabapentin 600 mg BID PO 04/29/25 22:00 05/01/25 10:11 600 MG Megestrol Acetate 40 mg BID PO 04/29/25 22:00 05/01/25 10:11 40 MG Patient Own Medication 1 tab DAILY PO 04/30/25 10:00 Pantoprazole Sodium 40 mg DAILY PO 04/30/25 10:00 05/01/25 10:11 40 MG Timolol Maleate 1 drop BID EACHEYE 04/29/25 22:00 05/01/25 10:08 1 DROP Cyclobenzaprine HCl 5 mg Q8HPRN PRN PO 04/29/25 16:00 05/01/25 06:41 5 MG Levofloxacin 50 ml @ 50 mls/hr DAILY IV 04/30/25 10:00 05/01/25 10:09 50 MLS/HR Sumatriptan Succinate 50 mg Q8HPRN PRN PO 04/30/25 17:30 05/01/25 10:11 50 MG laboratory and microbiology Laboratory Tests 05/01/25 05:35 Test 05/01/25 05:35 Range/Units Serum Glucose 91 74-106 mg/dL Problem List CHEST PAIN NEGATIVE TROPONIN CAD S/P PTCA STENT LAD 12/11 ECHO EF >55% PMH ORGANIC HD CAD S/P PTCA STENT LAD HTN COPD ANEMIA SLE GEOVANNA CANCER a Assessment/Plan CARDIAC STATUS STABLE MAY DC PT OUTPT W/U Dietary Evaluation Review Comments: Cardiac Diet Educated pt on her diet regimen Follow up with nephrology and nutrition related lab values Expected Outcomes/Goals: gradual wt loss Plan discussed with: Patient RENITA JENKINS MD May 01, 2025 16:28
== END 2025-05-01 17:48 | disposition home or self-care (01) | DRG 683 ==
LOC: ER 13:05 → OVERFLOW 21:31 → TELE-WESTW 04-29 02:32
PROVIDERS: ADMIT Internal Medicine; ATTEND Internal Medicine
DX: N17.9 Acute kidney failure, unspecified (principal); E87.0 Hyperosmolality and hypernatremia; R07.89 Other chest pain; I25.10 Atherosclerotic heart disease of native coronary artery without angina pectoris; G47.33 Obstructive sleep apnea (adult) (pediatric); J44.9 Chronic obstructive pulmonary disease, unspecified; I11.0 Hypertensive heart disease with heart failure; I50.9 Heart failure, unspecified; F32.A Depression, unspecified; D72.829 Elevated white blood cell count, unspecified; M79.602 Pain in left arm; G43.909 Migraine, unspecified, not intractable, without status migrainosus; F17.210 Nicotine dependence, cigarettes, uncomplicated; M79.601 Pain in right arm; Z95.5 Presence of coronary angioplasty implant and graft; Z88.0 Allergy status to penicillin; Z88.6 Allergy status to analgesic agent; Z79.01 Long term (current) use of anticoagulants; Z79.82 Long term (current) use of aspirin
CPT/HCPCS: 36415; 71046; 72125; 80048; 80053; 81001; 82550; 84484; 85025; 87040; 93005; 96365; 96375; G0378; J1956; J2405